=== PATIENT | female | born 1940 | race Caucasian/White ===

== ENCOUNTER 2018-06-09 20:27 | Observation (INO) | payer MEDICARE ==
[2018-06-09 21:07] LABS: #Basophils 0.1 thou/uL (0.0-0.2); #Eosinphils 0.1 thou/uL (0.0-0.7); #Lymphocytes 2.6 thou/uL (1.20-3.40); #Monocytes 1.8 thou/uL (0.11-0.59); #Neutrophils 7.8 thou/uL (1.40-6.50); %Basophils 0.7 % (0.0-1.0); %Eosinophils 1.2 % (0.0-10.0); %Lymphocytes 21.1 % (21.0-51.0); %Monocytes 14.6 % (0.0-10.0); %Neutrophils 62.5 % (42.0-75.0); Hemoglobin 14.4 g/dL (12.0-16.0); Mean Corpuscular HGB CONC 32.4 g/dL (32.0-36.0); Mean Corpuscular Hemoglobin 29.8 pg (27.0-31.0); Mean Platelet Volume 8.8 fL (7.4-10.4); Platelet Count 252 thou/uL (130-400); RBC Distribution Width 12.7 % (11.5-14.5); Red Blood Cell (RBC) Count 4.81 mill/uL (4.20-5.40); White Blood Cell (WBC) Count 12.4 thou/uL (4.8-10.8)
--- NOTE | 2018-06-09 21:11 | RAD ---
PORTABLE CHEST: 06/09/18 HISTORY: Mental status change. Confusion. The lungs are clear. No infiltrate or vascular congestion. Heart size upper normal. IMPRESSION: No acute lung process. POS: [facility]
[2018-06-09 21:27] LABS: ALT (SGPT) 17 U/L (8-55); AST (SGOT) 21 U/L (5-34); Alkaline Phosphatase 81 U/L (40-150); Anion Gap 11 mmol/L (10-20); BUN (Urea Nitrogen) 33 mg/dL (9.8-20.1); Bilirubin, Total 0.3 mg/dL (0.2-1.2); CK (CPK) 51 U/L (29-168); Calc. Creatinine Clearance 0 mL/min (70-130); Calcium 9.6 mg/dL (7.8-10.44); Carbon Dioxide 28 mmol/L (23-31); Chloride 99 mmol/L (98-107); Estimated GFR-MDRD 49; Globulin 3.5 g/dL (2.4-3.5); Glucose 100 mg/dL (83-110); Potassium 4.4 mmol/L (3.5-5.1); Protein, Total 7.5 g/dL (6.0-8.3); Sodium 134 mmol/L (136-145)
[2018-06-09 21:28] LABS: Bilirubin Negative (Negative); Blood, Urine Negative (Negative); Clarity CLEAR (Clear); Glucose, Urine (Dipstick) Negative (Negative); Leukocyte Negative (Negative); Nitrite Negative (Negative); Protein, Urine (Dipstick) Negative (Neg-Trace); Specific Gravity, Urine 1.018 (1.002-1.036); Urobilinogen 0.2 mg/dL (0.2-1.0); pH, Urine 5.5 (5.0-9.0)
[2018-06-09 21:32] LABS: CKMB 1.3 ng/mL (0-6.6)
--- NOTE | 2018-06-09 21:36 | CT ---
CT HEAD WITHOUT CONTRAST: 06/09/18 Multiple axial tomograms obtained through the head without IV enhancement. INDICATIONS: Mental status change. Confusion. Ventricles have normal size and position. Mild chronic ischemic white matter change. No evidence of m ass or hemorrhage. No evidence of acute infarct. IMPRESSION: No evidence of acute process. POS: [facility]
[2018-06-09] MEDS ORDERED: hydrALAZINE 20 MG/ML VIAL ONE (21:56)
[2018-06-10 02:39] VITALS: BMI 25.2
[2018-06-10 03:37] LABS: #Basophils 0.1 thou/uL (0.0-0.2); #Eosinphils 0.1 thou/uL (0.0-0.7); #Lymphocytes 2.5 thou/uL (1.20-3.40); #Monocytes 1.4 thou/uL (0.11-0.59); #Neutrophils 9.4 thou/uL (1.40-6.50); %Basophils 0.5 % (0.0-1.0); %Lymphocytes 18.3 % (21.0-51.0); %Monocytes 10.6 % (0.0-10.0); %Neutrophils 69.6 % (42.0-75.0); Hemoglobin 13.4 g/dL (12.0-16.0); Mean Corpuscular HGB CONC 32.7 g/dL (32.0-36.0); Mean Corpuscular Hemoglobin 30.4 pg (27.0-31.0); Mean Platelet Volume 8.9 fL (7.4-10.4); Platelet Count 252 thou/uL (130-400); RBC Distribution Width 12.6 % (11.5-14.5); Red Blood Cell (RBC) Count 4.42 mill/uL (4.20-5.40); White Blood Cell (WBC) Count 13.6 thou/uL (4.8-10.8)
--- NOTE | 2018-06-10 03:40 | HP ---
CHIEF COMPLAINT: Fall. HISTORY OF PRESENT ILLNESS: The patient is a 78-year-old female with past medical history of hyperte nsion, hypothyroidism. She also has a history of benign positional vertigo or possible vestibular ne uritis. The patient came to the hospital today after a fall. The patient stated that she was in her bedroom where she felt unsteady and fell and hit her head. The patient stated that about a couple m onths ago, she also had a fall; however, at that time, she got little dizzy. The patient states that she normally sees her neurologist, who normally does Allison maneuver and she feels great. The patien t stated that, however, this time her fall was not because she had some vertigo, but because she just felt unsteady. The patient's was at the bedside states that she has not been eating very mu ch and not eating or drinking as much. The patient denies any chest pain, fever or chills. The issac ent states that her blood pressure has been pretty labile for the past few weeks. The patient denies any nausea, vomiting, or diarrhea. PAST MEDICAL HISTORY: As of the following: The patient has a history of systolic murmur. She has a history of aortic stenosis which she is following with her cellophane casting machine repairer who does an echocardiogram e very 6 months. History of hypertension, hypothyroidism. PAST SURGICAL HISTORY: She has had an EGD, hysterectomy, appendectomy, cholecystectomy. ALLERGIES: She is allergic to PENICILLIN. CURRENT MEDICATIONS: The patient does not have a list with her. SOCIAL HISTORY: She denies any smoking, alcohol use, drug use. She lives with her . FAMILY HISTORY: Mother of heart failure and had complication at age 85, father had complication s from alcoholism and at age 60. The patient is a FULL CODE. REVIEW OF SYSTEMS: All negative except for the ones mentioned above in the HPI. PHYSICAL EXAMINATION: VITAL SIGNS: As following, temperature of 97.6, pulse 68, respiratory rate 18, sats 97% room air, bl ood pressure 141/65. GENERAL: She is awake, alert, oriented x3, does not appear in any distress. CARDIOVASCULAR: S1, S2 present. She does have a systolic murmur heard on her right sternal border, left sternal border which also radiates around her carotids. LUNGS: Clear to auscultation. No rhonchi or wheezes noted. ABDOMEN: Soft, nontender. Bowel sounds present x2. EXTREMITIES: No edema. NEUROLOGIC: No focal deficits noted. SKIN: Warm and dry. No lesions noted. LABORATORY RESULTS: As of the following: WBCs of mildly elevated at 12.4, hemoglobin of 14.4, hemat ocrit of 44.3, platelets of 252. Chemistry: Sodium of 134, potassium of 4.4, BUN of 33, creatinine of 1.08. Troponin x1 was negative. Her vitamin B12 level checked recently was greater than 2000. H er TSH was normal. Her urine was negative. She also had a CT head and a chest x-ray, CT head was ne gative. Her chest x-ray did not show any acute abnormalities. ASSESSMENT AND PLAN: The patient is a very pleasant 78-year-old female who presented to the hospital after a fall. 1. Unsteady gait/fall. The patient denies that she passed out. Denies any dizziness or palpitation s prior to her falling. The patient stated that she just lost her balance and fell. The patient may recommend physical therapy as an outpatient. Also, I would recommend getting the echocardiogram santos t was done recently. The echocardiogram that we have since 2016 and she has a pretty significant mur mur. I want to make sure that her falling is not secondary to any cardiac issues; however, I think t his is unlikely since she is not having any syncopal episodes, would like to have an echocardiogram. We will order an echocardiogram from her cellophane casting machine repairer's office. I do not think she needs to repeat an echocardiogram, it was done recently. Her TSH is normal. Her vitamin B12 level is normal. I thi nk the patient has just been very possibly some deconditioning may require physical therapy. She als o may benefit from vestibular physical therapy also. 2. Hypertension. We will continue to monitor. The patient's states that her blood pressure has been very high at times and normal at times. We will continue to monitor. 3. Hypothyroidism. We will continue her medication. 4. Deep venous thrombosis prophylaxis. We will put the patient on SCDs. I did spend some time expl aining to the patient about eating a well-balanced diet. Also, the patient drinks a lot of Diet Coke s. I have encouraged her to drink more water. Also, I have asked her to do some exercising haley g a stationary biking to increase her musculature in her lower extremities to avoid these falls. The patient uses a cane on ambulation. The patient stated that since this year she has fallen only twic e.
[2018-06-10 03:59] LABS: Anion Gap 11 mmol/L (10-20); BUN (Urea Nitrogen) 30 mg/dL (9.8-20.1); Calc. Creatinine Clearance 61 mL/min (70-130); Calcium 9.7 mg/dL (7.8-10.44); Carbon Dioxide 26 mmol/L (23-31); Chloride 104 mmol/L (98-107); Estimated GFR-MDRD 58; Glucose 106 mg/dL (83-110); Potassium 4.4 mmol/L (3.5-5.1); Sodium 137 mmol/L (136-145)
[2018-06-10] MEDS: Aspirin 81 mg Enteric Coated Tablet PO SCH (08:09)
[2018-06-10] MEDS: Levothyroxine Sodium 75 MCG TAB PO SCH (08:09)
[2018-06-10] MEDS: Gabapentin 300 MG CAP PO SCH ×2 (08:09→20:28)
[2018-06-10] MEDS ORDERED: Non-Formulary Item 1 EACH (Omeprazole [Omeprazole] 40 MG) PO SCH (09:00)
[2018-06-10] MEDS ORDERED: Sodium Chloride 0.9% 500 ML IV SCH (09:15)
[2018-06-10] MEDS: Acetaminophen 325 MG TAB PO PRN ×2 (09:21→20:28)
--- NOTE | 2018-06-10 11:55 | MRI ---
MRI BRAIN NONCONTRAST: 06/10/2018 HISTORY: A 78-year-old female with altered mental status and recent falls. FINDINGS: The FLAIR axial sequence and the gradient echo axial sequence are significantly degraded by patient m som. There is mild ventriculomegaly. This has not significantly changed since the 03/29/2017 MRI. There is no restricted diffusion, midline shift or any other mass effect, recent intraaxial hemorrh age, or extraaxial fluid collection. There mild chronic ischemic white matter changes. There are bi lateral mastoid effusions, which were not present on the previous MRI. IMPRESSION: 1. Mild chronic ischemic white matter changes. 2. No acute intracranial findings. 3. Bilateral mastoid effusions. smitha[] POS: [facility]
[2018-06-10] MEDS ORDERED: Ketorolac Tromethamine 30 MG/ML VIAL IVP SCH (13:00)
--- NOTE | 2018-06-10 14:05 | PDOC.PN ---
- Subjective Encounter Start Date: 06/10/18 Encounter Start Time: 08:30 Subjective: f/u for dizziness, fall, aortic stenosis -: Patient denies complaints today, denies dizziness - Objective Resuscitation Status: Resuscitation Status FULL:Full Resuscitation Vital Signs & Weight: Vital Signs (12 hours) Temp Pulse Pulse Pulse Resp BP BP 06/10/18 11:23 97.4 F L 70 18 06/10/18 09:18 79 80 119/55 L 121/54 L 06/10/18 07:37 98 F 70 16 06/10/18 03:10 97.5 F L 69 15 BP Pulse Ox 06/10/18 11:23 138/64 98 06/10/18 09:18 06/10/18 07:37 133/65 99 06/10/18 03:10 158/65 H 96 Weight Weight 77.383 kg I&O: 06/09/18 06/10/18 06/11/18 06:59 06:59 06:59 Intake Total 240 Output Total 400 Balance -160 Result Diagrams: 06/10/18 03:12 06/10/18 03:12 Phys Exam - Physical Examination HEENT: PERRLA, moist MMs Neck: no nodes, no JVD Respiratory: no wheezing, clear to auscultation bilateral Cardiovascular: RRR Significant systolic murmur Gastrointestinal: soft, non-tender Musculoskeletal: no edema, pulses present Neurological: non-focal, normal sensation, moves all 4 limbs Patient has a hard time with remembering recent events Lymphatic: no nodes Psychiatric: normal affect, A&O x 3 Skin: no rash, normal turgor, cap refill <2 seconds Dx/Plan (1) Aortic stenosis, moderate Code(s): I35.0 - NONRHEUMATIC AORTIC (VALVE) STENOSIS Status: Chronic (2) Altered mental state Code(s): R41.82 - ALTERED MENTAL STATUS, UNSPECIFIED Status: Acute (3) Falls Code(s): W19.XXXA - UNSPECIFIED FALL, INITIAL ENCOUNTER Status: Acute Qualifiers: Encounter type: initial encounter Qualified Code(s): W19.XXXA - Unspecified fall, initial encounter - Plan cont current plan of care Requesting last Echo from Dr. Sullivan, due to holiday, will order one if not -: received, pt reports last one may have been a year ago. -: Patient refusing rehab, states she can get around with cane -: Will continue to monitor * .
[2018-06-10] MEDS ORDERED: Sodium Chloride 0.9% 10 ML ONE (19:49)
[2018-06-10] MEDS ORDERED: Simvastatin 40 MG TAB PO SCH (21:00)
[2018-06-10] MEDS ORDERED: PARoxetine 20 MG TAB PO SCH (21:00)
[2018-06-11 03:55] LABS: #Eosinphils 0.2 thou/uL (0.0-0.7); #Lymphocytes 2.9 thou/uL (1.20-3.40); #Monocytes 1.6 thou/uL (0.11-0.59); #Neutrophils 6.4 thou/uL (1.40-6.50); %Basophils 0.2 % (0.0-1.0); %Eosinophils 1.9 % (0.0-10.0); %Lymphocytes 26.6 % (21.0-51.0); %Neutrophils 57.3 % (42.0-75.0); Mean Corpuscular HGB CONC 32.7 g/dL (32.0-36.0); Mean Corpuscular Hemoglobin 30.3 pg (27.0-31.0); Mean Corpuscular Volume 92.7 fL (78.0-98.0); Mean Platelet Volume 8.8 fL (7.4-10.4); Platelet Count 229 thou/uL (130-400); RBC Distribution Width 12.8 % (11.5-14.5); Red Blood Cell (RBC) Count 4.31 mill/uL (4.20-5.40); White Blood Cell (WBC) Count 11.1 thou/uL (4.8-10.8)
[2018-06-11 04:12] LABS: ALT (SGPT) 15 U/L (8-55); AST (SGOT) 17 U/L (5-34); Albumin 3.6 g/dL (3.4-4.8); Alkaline Phosphatase 70 U/L (40-150); Anion Gap 11 mmol/L (10-20); BUN (Urea Nitrogen) 30 mg/dL (9.8-20.1); Bilirubin, Total 0.4 mg/dL (0.2-1.2); Calc. Creatinine Clearance 52 mL/min (70-130); Calcium 9.2 mg/dL (7.8-10.44); Carbon Dioxide 27 mmol/L (23-31); Chloride 103 mmol/L (98-107); Estimated GFR-MDRD 49; Glucose 101 mg/dL (83-110); Protein, Total 6.6 g/dL (6.0-8.3); Sodium 137 mmol/L (136-145)
[2018-06-11] MEDS: Gabapentin 300 MG CAP PO SCH (08:12)
[2018-06-11] MEDS: Aspirin 81 mg Enteric Coated Tablet PO SCH (08:12)
[2018-06-11] MEDS: Levothyroxine Sodium 75 MCG TAB PO SCH (08:12)
[2018-06-11 11:36] VITALS: BP 106/54; TEMP 97.8
--- NOTE | 2018-06-11 15:19 | DIS ---
DATE OF ADMISSION: 06/09/2018 DATE OF DISCHARGE: 06/11/2018 PRIMARY CARE PHYSICIAN: Abiel Granados M.D. CONSULTATIONS: None. CODE STATUS: Full. PROCEDURES: 1. Brain CT, which showed no evidence of acute process. 2. Chest x-ray, which showed no acute lung process. 3. MRI of the brain, which showed mild chronic ischemic white matter changes, no acute intracranial findings, bilateral mastoid effusions. 4. ECHO: with an ejection fraction of 60%-65%, grade I/III diastolic dysfunction, mild concentric left ventricular hypertrophy, mild mitral regurgitation, moderate tricuspid regurgitation, right ventricular pressures at 28 mmHg, small pericardial effusion without tamponade, heavily calcified aortic valve with decreased cusp opening, [id number] aortic regurgitation, moderate aortic valve stenosis with MEGA 1.0 cm sq, max valve 3.2 m/sec and mean gradient of 25 mmHg. DISCHARGE DIAGNOSES: 1. Unsteady gait and fall. CT and MRI of the brain were performed. No new findings to explain possible changes. Echocardiogram was done, showed aortic stenosis. The patient does have a history of vertigo. 2. Hypertension. 3. Hypothyroidism. REVIEW OF SYSTEMS: The patient was examined on the day of discharge. Denies dizziness. Denies chest pain, shortness of breath. Denies any weakness. All other systems were reviewed and are negative. PHYSICAL EXAMINATION: VITAL SIGNS: Temperature 98.2, pulse is 64, respirations are 18, blood pressure 118/58, the patient is 98% on room air. GENERAL: The patient is alert, awake, oriented x3. The patient does not appear in any distress. Looks nontoxic. HEENT: Head is normocephalic, atraumatic. Eyes, pupils are equal and reactive to light. Extraocular muscles are intact. NECK: Normal range of motion. Trachea is midline. No JVD is noted. RESPIRATORY/CHEST: No respiratory distress. Breath sounds are clear. No wheezing or rales. Lungs are clear to auscultation. No rhonchi or wheeze. CARDIOVASCULAR/HEART: S1, S2. Systolic murmur heard at the right sternal border. ABDOMEN: Soft, nontender. Bowel sounds are present. EXTREMITIES: Strength is equal bilaterally, upper extremities and lower extremities. Sensation intact x4. No edema is noted. NEUROLOGIC: No focal sensory deficits are noted. SKIN: Warm, dry and normal in color. HOSPITAL COURSE: This is a very pleasant 78-year-old female with a past medical history of hypertension, hypothyroidism and benign positional vertigo and possible vestibular neuritis. The patient on the day of admission, came to the hospital after she had had a fall. Reports that she was in her bedroom, felt unsteady and hit her head. The patient stated that this same thing happened a couple of months ago. The patient states that she normally sees a neurologist when she starts feeling dizzy and having vertigo symptoms and she has an Allison maneuver and after which she feels back to normal. The patient states that her appetite had decreased and she has not been eating or drinking normally. She does deny any abdominal pain, nausea, vomiting, diarrhea. The patient was admitted to the observation unit. She initially had a little bit of leukocytosis with a white blood cell count of 12.4 that has gone down to 11.3. All other lab values have remained stable. Her urine was negative. The patient denies any complaints. Denies any dizziness or any other symptoms. The patient had an echocardiogram this morning, results are not available on discharge, patient instructed to follow up with Dr. Granados to discuss results at her follow up appointment. She wished to be discharged home for [facility] so patient was discharged home. DISCHARGE MEDICATIONS: Home medications will be continued, which include gabapentin 300 mg p.o. b.i.d., levothyroxine 75 mcg p.o. daily, omeprazole 40 mg p.o. daily, Paxil 20 mg p.o. at bedtime, quinapril 40 mg p.o. daily, simvastatin 40 mg p.o. at bedtime. ALLERGIES: The patient has allergies to PENICILLINS and LACTOSE. DISCHARGE CONDITION: The patient's condition is stable. DISPOSITION: The patient will be discharged to home. DISCHARGE INSTRUCTIONS: The patient was instructed to follow up with Dr. Granados within the next week. ZAK
== END 2018-06-11 15:15 | disposition home or self-care (01) ==
LOC: ERS 20:27 → 2SW 23:51
PROVIDERS: ADMIT Internal Medicine; ATTEND Internal Medicine
DX: R26.81 Unsteadiness on feet (principal); E03.9 Hypothyroidism, unspecified; I35.0 Nonrheumatic aortic (valve) stenosis; H81.10 Benign paroxysmal vertigo, unspecified ear; I10 Essential (primary) hypertension; Z79.899 Other long term (current) drug therapy; Z88.0 Allergy status to penicillin; Z91.011 Allergy to milk products; W19.XXXA Unspecified fall, initial encounter
CPT/HCPCS: 51701; 70450; 70551; 71045; 80048; 80053; 81003; 82550; 82553; 82607; 84484; 85025 ×2; 87040; 87086; 90662; 93005; 93306; 96374; 97116 ×2; 97139 ×4; 99285; G0008; G0378 ×2; G8978; G8979; G8987; G8988; G8989; 36415; 84443; 90471; A4353; J0360; J1885

== ENCOUNTER 2018-06-18 07:28 | Emergency (ER) | payer MEDICARE ==
[2018-06-18] MEDS ORDERED: Ondansetron PF 4 MG/2 ML Vial ONE (08:37)
[2018-06-18 08:50] LABS: #Eosinphils 0.1 thou/uL (0.0-0.7); #Lymphocytes 1.8 thou/uL (1.20-3.40); #Neutrophils 8.2 thou/uL (1.40-6.50); %Basophils 0.3 % (0.0-1.0); %Eosinophils 1.1 % (0.0-10.0); %Lymphocytes 16.4 % (21.0-51.0); %Neutrophils 73.2 % (42.0-75.0); Hemoglobin 14.8 g/dL (12.0-16.0); Mean Corpuscular HGB CONC 33.3 g/dL (32.0-36.0); Mean Corpuscular Hemoglobin 30.5 pg (27.0-31.0); Mean Corpuscular Volume 91.4 fL (78.0-98.0); Mean Platelet Volume 8.5 fL (7.4-10.4); Platelet Count 243 thou/uL (130-400); RBC Distribution Width 12.8 % (11.5-14.5); Red Blood Cell (RBC) Count 4.84 mill/uL (4.20-5.40); White Blood Cell (WBC) Count 11.1 thou/uL (4.8-10.8)
[2018-06-18 09:12] LABS: ALT (SGPT) 23 U/L (8-55); AST (SGOT) 25 U/L (5-34); Albumin 4.1 g/dL (3.4-4.8); Alkaline Phosphatase 84 U/L (40-150); Anion Gap 13 mmol/L (10-20); BUN (Urea Nitrogen) 24 mg/dL (9.8-20.1); Bilirubin, Total 0.4 mg/dL (0.2-1.2); Calc. Creatinine Clearance 0 mL/min (70-130); Calcium 10.1 mg/dL (7.8-10.44); Carbon Dioxide 27 mmol/L (23-31); Chloride 105 mmol/L (98-107); Estimated GFR-MDRD 46; Globulin 3.6 g/dL (2.4-3.5); Glucose 105 mg/dL (83-110); Lipase 10 U/L (8-78); Potassium 4.2 mmol/L (3.5-5.1); Protein, Total 7.7 g/dL (6.0-8.3); Sodium 141 mmol/L (136-145)
[2018-06-18] MEDS ORDERED: Promethazine HCl 25 MG/ML VIAL ONE (09:36)
[2018-06-18 10:27] LABS: Bilirubin Negative (Negative); Blood, Urine Negative (Negative); Clarity CLEAR (Clear); Glucose, Urine (Dipstick) Negative (Negative); Leukocyte Negative (Negative); Nitrite Negative (Negative); Protein, Urine (Dipstick) Trace mg/dL (Neg-Trace); Specific Gravity, Urine 1.012 (1.002-1.036); Urobilinogen 0.2 mg/dL (0.2-1.0); pH, Urine 5.5 (5.0-9.0)
== END 2018-06-18 11:53 | disposition home or self-care (01) ==
LOC: ERS 07:28
DX: R11.2 Nausea with vomiting, unspecified (principal); E03.9 Hypothyroidism, unspecified; I10 Essential (primary) hypertension; Z79.899 Other long term (current) drug therapy
CPT/HCPCS: 36415; 80053; 81003; 83690; 85025; 96361; 96365; 96366; 96375; J2405; J2550

== ENCOUNTER 2019-06-05 10:51 | Emergency (ER) | payer MEDICARE ==
[2019-06-05] MEDS ORDERED: Ondansetron PF 4 MG/2 ML Vial ONE (11:28)
[2019-06-05] MEDS ORDERED: Morphine 4 MG/ML VIAL ONE (11:28)
[2019-06-05 11:29] LABS: #Eosinphils 0.1 thou/uL (0.0-0.7); #Lymphocytes 1.7 thou/uL (1.20-3.40); #Monocytes 0.7 thou/uL (0.11-0.59); #Neutrophils 9.4 thou/uL (1.40-6.50); %Basophils 0.1 % (0.0-1.0); %Eosinophils 0.9 % (0.0-10.0); %Lymphocytes 14.5 % (21.0-51.0); %Monocytes 5.7 % (0.0-10.0); %Neutrophils 78.8 % (42.0-75.0); Hemoglobin 14.3 g/dL (12.0-16.0); Mean Corpuscular Hemoglobin 31.4 pg (27.0-31.0); Mean Corpuscular Volume 92.4 fL (78.0-98.0); Mean Platelet Volume 8.2 fL (7.4-10.4); Platelet Count 237 thou/uL (130-400); RBC Distribution Width 11.9 % (11.5-14.5); Red Blood Cell (RBC) Count 4.54 mill/uL (4.20-5.40); White Blood Cell (WBC) Count 11.9 thou/uL (4.8-10.8)
[2019-06-05 11:50] LABS: ALT (SGPT) 19 U/L (8-55); AST (SGOT) 24 U/L (5-34); Albumin 4.4 g/dL (3.4-4.8); Alkaline Phosphatase 82 U/L (40-110); Anion Gap 14 mmol/L (10-20); BUN (Urea Nitrogen) 24 mg/dL (9.8-20.1); Bilirubin, Total 0.4 mg/dL (0.2-1.2); Calc. Creatinine Clearance 0 mL/min (70-130); Calcium 10.2 mg/dL (7.8-10.44); Carbon Dioxide 24 mmol/L (23-31); Chloride 105 mmol/L (98-107); Estimated GFR-MDRD 52; Globulin 3.2 g/dL (2.4-3.5); Glucose 95 mg/dL (83-110); Lipase 21 U/L (8-78); Potassium 4.1 mmol/L (3.5-5.1); Protein, Total 7.6 g/dL (6.0-8.3); Sodium 139 mmol/L (136-145)
[2019-06-05] MEDS ORDERED: diphenhydrAMINE 50 MG/ML VIAL ONE (12:13)
--- NOTE | 2019-06-05 13:34 | CT ---
EXAM: CT ABDOMEN AND PELVIS HISTORY: Trauma pain, x2 days. Nausea. COMPARISON: 10/04/2015 Procedure: Multiple contiguous axial images were obtained and a CT of the abdomen and pelvis with IV contrast. C oronal reformats were performed. FINDINGS: Lower Chest: within normal limits. Vessels: Normal caliber aorta. Heart: Normal heart size. No significant pericardial fluid Abdomen: Portal vein:Patent Gallbladder: Surgically absent. Postsurgical dilatation of the intra and extra hepatic biliary system , unchanged Liver: within normal limits. Pancreas: within normal limits. Stable prominence of the pancreatic duct. Spleen: Enlarging enhancing focus involving the medial aspect of the spleen, probably measuring 0.9 c m. Previous the measuring 0.5 cm. Adrenals: within normal limits. Kidneys: Symmetric enhancement. No obstructive uropathy. Redemonstration of a 1 cm hypodensity in the midpole of the left kidney which may represent a complex cyst. Peritoneum: No ascites or free air, no fluid collection. Bowel: Grossly unremarkable gastric mucosa. No evidence of bowel obstruction. Ileocecal junction is u nremarkable. Appendix is not appreciated. No inflammation at the cecal apex.. Scattered fecal material in a nondistended, nondilated colon. Mesentery and Retroperitoneum: No enlarged mesenteric or retroperitoneal lymph nodes. Abdominal Wall: within normal limits. Pelvis: Reproductive Organs: Surgically absent uterus Pelvis: No mass, lymphadenopathy, free air or free fluid. Bladder: within normal limits. Bones: No osseous abnormalities. Lumbar fusion at L4-L5. IMPRESSION: 1. No evidence of acute intraabdominal\pelvic abnormality. 2. Hysterectomy. 3. Stable left renal cyst. 4. Stable dilatation of the intra and extrahepatic biliary system and pancreatic duct. 5. Interval enlargement of a nonspecific enhancing focus in the spleen which may represent a splenic hemangioma.
[2019-06-05 14:07] LABS: Bacteria/HPF None Seen HPF (None Seen); Bilirubin Negative (Negative); Blood, Urine Negative (Negative); Clarity Clear (Clear); Glucose, Urine (Dipstick) Normal (Negative); Leukocyte 25 Leu/uL (Negative); Nitrite Negative (Negative); Protein, Urine (Dipstick) Negative (Neg-Trace); RBC/HPF 0-3 HPF (0-3); Squamous Epithelial 0-3 HPF (0-3); Urobilinogen Normal mg/dL (Less than 2); WBC/HPF 0-3 HPF (0-3)
[2019-06-05] MEDS ORDERED: Iopamidol 370 76% 50 ML VIAL FS ONE (16:27)
[2019-06-05] MEDS ORDERED: Iopamidol-370 76% 500 ML 1 ML ONE (16:27)
== END 2019-06-05 14:50 | disposition home or self-care (01) ==
LOC: ERS 10:51
DX: R11.2 Nausea with vomiting, unspecified (principal); R19.7 Diarrhea, unspecified; R10.9 Unspecified abdominal pain; I10 Essential (primary) hypertension; E03.9 Hypothyroidism, unspecified; Z79.899 Other long term (current) drug therapy
CPT/HCPCS: 74177; 80053; 81003; 81015; 82150; 83690; 85025; 96361; 96374; 96375; J1200; J2270; J2405; Q9967

== ENCOUNTER 2019-11-21 13:04 | Inpatient (IN) | payer MEDICARE ==
[2019-11-21 13:44] LABS: #Basophils 0.1 thou/uL (0.0-0.2); #Eosinphils 0.2 thou/uL (0.0-0.7); #Lymphocytes 1.5 thou/uL (1.20-3.40); %Basophils 0.6 % (0.0-1.0); %Lymphocytes 14.2 % (21.0-51.0); %Monocytes 9.6 % (0.0-10.0); %Neutrophils 73.6 % (42.0-75.0); Hemoglobin 12.7 g/dL (12.0-16.0); Mean Corpuscular HGB CONC 34.3 g/dL (32.0-36.0); Mean Corpuscular Hemoglobin 32.2 pg (27.0-31.0); Platelet Count 171 thou/uL (130-400); RBC Distribution Width 11.9 % (11.5-14.5); Red Blood Cell (RBC) Count 3.94 mill/uL (4.20-5.40); White Blood Cell (WBC) Count 10.9 thou/uL (4.8-10.8)
[2019-11-21 14:04] LABS: ALT (SGPT) 29 U/L (8-55); AST (SGOT) 44 U/L (5-34); Albumin 3.8 g/dL (3.4-4.8); Alkaline Phosphatase 79 U/L (40-110); Anion Gap 11 mmol/L (10-20); BUN (Urea Nitrogen) 26 mg/dL (9.8-20.1); Bilirubin, Total 0.5 mg/dL (0.2-1.2); Calc. Creatinine Clearance 0 mL/min (70-130); Calcium 9.2 mg/dL (7.8-10.44); Carbon Dioxide 23 mmol/L (23-31); Chloride 109 mmol/L (98-107); Estimated GFR-MDRD 43; Globulin 2.9 g/dL (2.4-3.5); Glucose 104 mg/dL (83-110); Potassium 4.5 mmol/L (3.5-5.1); Protein, Total 6.7 g/dL (6.0-8.3); Sodium 138 mmol/L (136-145)
--- NOTE | 2019-11-21 14:04 | RAD ---
CHEST ONE VIEW: History: Chest pain Comparison: 2018 FINDINGS: Lungs are clear. Pulmonary arteries are mildly dilated. No acute osseous abnormality. Heart size is n ot significantly enlarged. IMPRESSION: 1. Enlargement of hilum bilaterally suggesting pulmonary hypertension. Lymphadenopathy. 2. No acute inflammatory process in the chest. No evidence for pneumonia. POS: [facility]
[2019-11-21] MEDS ORDERED: Nitroglycerin 2% Ointment 1 INCH/1 GM Packet ONE (14:27)
[2019-11-21 15:31] LABS: CK (CPK) 49 U/L (29-168)
[2019-11-21 15:45] LABS: Lipase 1259 U/L (8-78)
[2019-11-21] MEDS ORDERED: Morphine 4 MG/ML VIAL ONE (15:55)
[2019-11-21] MEDS ORDERED: Sodium Chloride 0.9% 1,000 ML IV SCH (16:30)
[2019-11-21] MEDS ORDERED: Morphine 2 MG/ML SYRINGE SLOW IVP PRN (17:03)
--- NOTE | 2019-11-21 18:10 | HP ---
CHIEF COMPLAINT: Chest and abdominal pain. HISTORY OF PRESENT ILLNESS: A 79-year-old female with history of hypertension, gait impairment, and hypothyroidism, presenting with chest pain as well as abdominal pain. This morning, she started to have chest pain all across the chest and radiating towards her neck. Later, she also experienced epigastric pain. The pain lasted at least few hours until resolved by analgesic given in the ER. Her lipase was elevated at 1259, and D-dimer was negative. The patient had previous episode of pancreatitis when she had milog cruise in March 2019. She is not alcoholic, and she does not smoke. She had an echo done during her last hospitalization, and it showed EF of 65%, and heavily calcified aortic valve with valve stenosis. She is scheduled to go to cardiac cath on December 01 to assess the valvular anatomy as well as to rule out coexisting coronary artery disease, if any. The patient has no prior history of [place] or stroke, and she is not diabetic. REVIEW OF SYSTEMS: 13-point review of systems reviewed with the patient and pertinents addressed in the history of present illness. Rest are negative including no fever or productive cough. She did not have any shortness of breath. No PND or orthopnea. No nausea or vomiting. She does have abdominal pain and mostly restricted in the epigastric area, bandlike sensation. She has no hematuria, hematochezia, or dysuria. Denies headache, tingling, or numbness in her extremities. No rash. ALLERGIES: SHE IS ALLERGIC TO PENICILLIN AND LACTOSE. PAST MEDICAL HISTORY: Hypertension, hypothyroidism, gait impairment, severe aortic stenosis. SOCIAL HISTORY: She lives with her . Does not smoke or drink alcohol. FAMILY HISTORY: Significant for mother had CHF. Father of alcoholic pancreatitis. PHYSICAL EXAMINATION: VITAL SIGNS: Her temperature is 98, pulse 76, blood pressure 127/60, saturating 96% in room air. GENERAL: She is alert, oriented, healthy female, appears younger for her stated age, not toxic looking. HEENT: Pupils are equal, round, and reactive to light. Anicteric. Mucous membranes moist. CARDIOVASCULAR: Regular rate and rhythm without murmurs, rubs, or gallops. She has a 4/6 systolic ejection murmur heard very well in all 4 sites of cardiac auscultation. LUNGS: Clear to auscultation bilaterally without wheezing, rales, or rhonchi. ABDOMEN: There is some mild tenderness both in the right and left as well as the epigastric area in the upper quadrants. No rash noted over the abdominal area. Good bowel sounds and soft. No guarding or rigidity appreciated. EXTREMITIES: Without any pitting edema or rash. NEUROLOGIC: No focal deficits. PSYCHIATRIC: Appropriate mood and affect. LABORATORY DATA: WBC 10.9, hemoglobin 12.7, platelet 171. CMP panel in the normal range including AST of 44, ALT of 29, alkaline phosphatase of 79. Her troponin is 0.021. Lipase was 1259. IMPRESSION AND PLAN: 1. This is a 79-year-old female with history of hypertension and severe aortic stenosis, presenting with acute pancreatitis and likely due to biliary versus idiopathic. The patient has no risk factors like smoking or alcohol. We will check her lipid panel. The patient is on simvastatin, quinapril, paroxetine, and gabapentin as well as levothyroxine. We will hold some of these medications except levothyroxine and paxil. Aggressive hydration. Keep her n.p.o. until lipase is trending down. We will also get a CT abdomen to make sure there is no pancreatic necrosis as well as pseudocyst. 2. Leukocytosis, probably reflective of above condition. 3. Chest pain. Based on the history, it sounds more like pain related to pancreatitis rather than cardiac ischemia. However, we will rule out with serial troponins. 4. Hypertension. I will hold her quinapril for now and provide hydralazine as needed. Currently, she is normotensive. Rest of the management based on further clinical course. Full code. Job ID: [id number] MTDD
[2019-11-21] MEDS: Sodium Chloride 0.9% 1,000 ML IV SCH (20:57)
[2019-11-21 21:07] LABS: Troponin I 0.015 ng/mL (< 0.028)
[2019-11-21] MEDS: predniSONE 50 MG TAB PO SCH (21:08)
[2019-11-22] MEDS: Sodium Chloride 0.9% 1,000 ML IV SCH (03:39)
[2019-11-22] MEDS: predniSONE 50 MG TAB PO SCH ×2 (03:39→07:50)
[2019-11-22 04:53] LABS: #Lymphocytes 1.1 thou/uL (1.20-3.40); #Monocytes 0.1 thou/uL (0.11-0.59); #Neutrophils 5.4 thou/uL (1.40-6.50); %Basophils 0.1 % (0.0-1.0); %Eosinophils 0.1 % (0.0-10.0); %Lymphocytes 16.7 % (21.0-51.0); %Monocytes 2.1 % (0.0-10.0); %Neutrophils 81.1 % (42.0-75.0); Hemoglobin 12.3 g/dL (12.0-16.0); Mean Corpuscular HGB CONC 33.2 g/dL (32.0-36.0); Mean Corpuscular Hemoglobin 31.4 pg (27.0-31.0); Mean Corpuscular Volume 94.4 fL (78.0-98.0); Mean Platelet Volume 9.5 fL (7.4-10.4); Platelet Count 154 thou/uL (130-400); RBC Distribution Width 11.7 % (11.5-14.5); Red Blood Cell (RBC) Count 3.93 mill/uL (4.20-5.40); White Blood Cell (WBC) Count 6.7 thou/uL (4.8-10.8)
[2019-11-22 05:26] LABS: ALT (SGPT) 205 U/L (8-55); AST (SGOT) 299 U/L (5-34); Albumin 3.7 g/dL (3.4-4.8); Alkaline Phosphatase 171 U/L (40-110); Anion Gap 11 mmol/L (10-20); BUN (Urea Nitrogen) 26 mg/dL (9.8-20.1); Bilirubin, Total 0.7 mg/dL (0.2-1.2); Calc. Creatinine Clearance 55 mL/min (70-130); Calcium 8.9 mg/dL (7.8-10.44); Carbon Dioxide 23 mmol/L (23-31); Cardiac Risk 2.8 (Less than 4.5); Chloride 109 mmol/L (98-107); Cholesterol 109 mg/dl (< 200 Desired); Estimated GFR-MDRD 49; Globulin 2.9 g/dL (2.4-3.5); Glucose 135 mg/dL (83-110); HDL Cholesterol 39 mg/dL (>60 Neg Risk); LDL Cholesterol, Calculated 56 mg/dL; Potassium 4.5 mmol/L (3.5-5.1); Protein, Total 6.6 g/dL (6.0-8.3); Sodium 138 mmol/L (136-145); Triglycerides 71 mg/dL (Less than 150)
[2019-11-22] MEDS: Levothyroxine Sodium 75 MCG TAB PO SCH (05:29)
[2019-11-22 05:39] LABS: Lipase 4253 U/L (8-78)
[2019-11-22] MEDS ORDERED: diphenhydrAMINE 50 MG CAP PO SCH (09:00)
[2019-11-22] MEDS ORDERED: Iopamidol-370 76% 500 ML 1 ML ONE (09:03)
[2019-11-22] MEDS ORDERED: Sodium Chloride 0.9% 1,000 ML IV SCH (10:00)
--- NOTE | 2019-11-22 11:56 | CT ---
CT ABDOMEN ONLY WITHOUT AND WITH CONTRAST: Date: 11/22/2019 COMPARISON: 06/05/2019. HISTORY: Epigastric pain and pancreatitis. Evaluate for pseudocyst. TECHNIQUE: Multiple contiguous axial images were obtained in a CT of the abdomen only without and with IV contra st. Postcontrast images were obtained in the arterial and portal venous phases. PO contrast was admin istered. Sagittal and coronal reformats were performed. FINDINGS: The gallbladder has been removed. There is enlargement of the common bile duct to 10.0 mm with mild c entral intrahepatic biliary dilatation. This is stable compared to the prior examination and may be a reservoir effect from prior cholecystectomy. There is subtle stranding change adjacent to the pancreatic tail with a small amount of fluid between the pancreas and spleen. This could be secondary to pancreatitis. There is no evidence of pancreatic necrosis and no focal pancreatic lesions are identified. There is a small hypodensity in the left kidney which likely represents a cyst. No focal liver lesions are seen. The right kidney, adrenal glands, and spleen are unremarkable. No free air is seen in the abdomen. The visualized large and small bowel are unremarkable. No abdomin al adenopathy is seen. Atherosclerotic calcifications are seen in the aorta. Degenerative and postsurgical changes are seen in the spine. Atelectasis is seen in both lung bases. IMPRESSION: 1. Focal pancreatitis of the tail of the pancreas. 2. Enlargement of the biliary tree is likely a reservoir effect from prior cholecystectomy. 3. small left renal cyst. POS: [facility]
--- NOTE | 2019-11-22 13:21 | PDOC.HOSPP ---
- Subjective Encounter Date: 11/22/19 Encounter Time: 10:10 Subjective: pt still has some pain, no nausea, no appetite. Ct abd done. - Objective Vital Signs & Weight: Vital Signs (12 hours) Temp Pulse Resp BP Pulse Ox 11/22/19 11:39 97.6 F 66 17 145/63 H 92 L 11/22/19 07:11 97.5 F L 61 17 140/63 95 11/22/19 04:22 97.4 F L 62 18 152/70 H 96 Weight Weight 181 lb 11.2 oz I&O: 11/21/19 11/22/19 11/23/19 06:59 06:59 06:59 Intake Total 100 Output Total 100 Balance 0 Result Diagrams: 11/22/19 04:26 11/22/19 04:26 Hospitalist ROS - Medication Medications: Active Medications Generic Name Dose Route Start Last Admin Trade Name Freq PRN Reason Stop Dose Admin Sodium Chloride 1,000 mls @ 150 mls/hr 11/22/19 10:00 11/22/19 13:13 Normal Saline 0.9% IV 11/22/19 23:19 1,000 mls .[id number] SHAWANDA Administration Levothyroxine Sodium 75 mcg 11/22/19 06:00 11/22/19 05:29 Synthroid PO 75 mcg 0600 SHAWANDA Administration - Exam General Appearance: NAD, awake alert Eye: PERRL ENT: normocephalic atraumatic Neck: supple Heart: RRR, normal peripheral pulses Respiratory: CTAB, normal chest expansion Gastrointestinal: soft, non-distended, normal bowel sounds, tender to palpation Neurological: no focal deficits Hosp A/P - Plan Acute pancreatitis, idiopathic vs.. ACEI induced --CW IVF, antiemetic and analgesic -Ct abd - no pseudocyst or necrosis -- tail of the pancreas w.. inflammation -TGL - in 70s -on hold ACEI, zocor, gabapetin and paxil etc.. -CW NPO Aortic stenosis --plan for cath middle of this month Leukocytosis -resolved HTN -hold aCEI and hydralazine PRN. full code.
[2019-11-22] MEDS ORDERED: Lactated Ringer's 1,000 ML IV SCH (15:00)
[2019-11-22] MEDS: Lactated Ringer's 1,000 ML IV SCH ×2 (16:05→20:46)
[2019-11-22] MEDS ORDERED: Lorazepam 1 MG TAB PO SCH (16:15)
[2019-11-22] MEDS ORDERED: Communication Order-Pharmacy FS SCH (18:00)
[2019-11-22] MEDS: PARoxetine 20 MG TAB PO SCH (20:45)
--- NOTE | 2019-11-22 22:04 | CON ---
DATE OF CONSULTATION: 11/22/2019 REASON FOR CONSULT: Pancreatitis. HISTORY OF PRESENT ILLNESS: Ms. Moyer is a pleasant 79-year-old female, who came to the emergency room with back and chest pain. She states it awoke her at about 2 or 3 in the morning on the day of admission, which was yesterday. Apparently, she stayed at home trying to see if they would get better, it was bothering her in her jaws bilaterally and her chest and her upper back. Also, when she came in, she had stable vital signs and she ruled out for myocardial infarction, but she was found to have pancreatitis. She reports that associated with this she had elevated LFTs in a cholestatic pattern. Today, after she received steroids for iodine allergy, she had a CAT scan at about 10 this morning that showed a large amount of the common bile duct to 10 mm mild central intrahepatic biliary duct dilatation and some subtle stranding in the pancreatic tail area consistent with pancreatitis. There was no evidence of pancreatic necrosis or focal pancreatic lesions. In talking with the patient, she is feeling much better now. She received IV fluids. She is urinating well. She denies any jaundice. She reports a similar illness to this back in March and May when she was in [place] visiting her son apparently. Our office has received those records. Dr. Nam saw her after that admission and requested records. She was to follow up after that again, but did not. The records we did receive indicated she had an endoscopic ultrasound in [place] and that although it showed some prominent bile duct, they did not see any stones or sludge in the bile duct and the pancreas appeared normal. They did not see any ampullary lesions and they felt that she should consider having ERCP and sphincterotomy when she return home or possibly if she had recurrent episodes. Since that time or before, the patient is really unclear and I have made multiple phone calls with her and not been able to get through to him, but apparently she was also in the hospital in [facility] at one point in time, I think it was after the [place] hospitalization, but I can't be sure, it seems it was also for her stone, but she does not recall much being done other than getting IV fluids and a CT scan. The patient denies alcohol use. Denies any prior episodes of pancreatitis like this before these hospitalizations previously. REVIEW OF SYSTEMS: Negative for fever, chills, nausea, or vomiting, although the previous episode she was quite nauseated. She notes that she is supposed to have some heart testing. 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 Gene Sullivan, and it turns out that she has severe aortic stenosis. She is to have a catheterization on 12/01 and have a transarterial valve replacement at some point in time. She has an aortic valve area of 0.8. She does have some dyspnea on exertion and shortness of breath. No orthopnea and no syncopal episodes. ALLERGIES: PENICILLIN, LACTOSE AND CONTRAST DYE. PAST MEDICAL HISTORY: Hypertension, hypothyroidism, severe aortic stenosis, PAST SURGICAL HISTORY: Cholecystectomy. SOCIAL HISTORY: The patient does not smoke or drink. FAMILY HISTORY: Mother notes congestive heart failure and father of pancreatitis related to alcohol abuse. MEDICATIONS: At home; 1. B12. 2. Myrbetriq. 3. Quinapril. 4. Paxil. 5. Synthroid. 6. Gabapentin. 7. Simvastatin. Medications here; 1. Tylenol. 2. Aspirin. 3. Synthroid. 4. Morphine p.r.n. 5. Zofran p.r.n. 6. Paroxetine. 7. Normal saline at 150 an hour. PHYSICAL EXAMINATION: VITAL SIGNS: She has been afebrile since admission. Temperature is 97.6, pulse 66, O2 saturation 92% on room air, blood pressure 145/63, respirations 17. GENERAL: She is resting in bed. She is in no distress. HEENT: Oropharynx is moist. NECK: Supple. LUNGS: Clear. HEART: Regular rate and rhythm. There is a 3/6 systolic ejection murmur that radiates up into her right neck and left neck. LUNGS: Clear. ABDOMEN: Soft. She has mild tenderness in the epigastrium. No rebound or guarding. EXTREMITIES: No clubbing, cyanosis, or edema. SKIN: Without rash or lesions. There are no ecchymoses. LABORATORY DATA: Sodium 138, potassium 4.5, chloride 109, BUN and creatinine are 26 and 1.09, down from 26 and 1.22 yesterday. AST was 44, today is 299, ALT was 29, today is 205, alkaline phosphatase 79, presently 171. Troponins were negative, last was 0.021 at 2200 last night. Protein 6.7, albumin 3.7, lipase is 4253 today, it was 1259 yesterday. ASSESSMENT: 1. 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 The patient has had a previous EUS with no overt choledocholithiasis, although this was in [place] and their recommendations were to consider an outpatient endoscopic retrograde cholangiopancreatography, although she was admitted with pancreatitis at that time. She may have had a second event in [place]. All those records are not available. This is her at least third event. Presently, she actually feels better than when she came in, but her numbers are up from when she came in. Her renal function has slightly improved. Her hemoglobin has dropped a little bit from 12.7 to 12.3. I think she needs more aggressive fluid resuscitation and we will give her a L bolus and then go back to 150 an hour on saline with the plans for proceeding with endoscopic retrograde cholangiopancreatography tomorrow as long as we were not seeing worsening liver function. 2. Severe aortic stenosis. I talked to Dr. Sullivan. She has a valve area of 0.8, she was supposed to have a heart catheterization on the . It seems that she does not have a coronary anatomy defined at this time, I think she is probably just going to need to have an endoscopic retrograde cholangiopancreatography and be at increased risk, but we will have Cardiology see the patient first as this is not emergent at this time. I think though the patient is going to need that procedure done before she goes home so that she does not come back for pancreatitis again. Job ID: [id number]
--- NOTE | 2019-11-23 00:46 | CON ---
DATE OF CONSULTATION: 11/22/2019 INDICATION FOR CONSULTATION: A 79-year-old female with third bout of pancreatitis who needs to undergo a repeat ERCP, but also has a history of severe aortic valve stenosis and has been complaining of chest pain. HISTORY OF PRESENT ILLNESS: This very pleasant 79-year-old female with a history of severe aortic valve stenosis. She has had a third episode of pancreatitis. The first episode started back in March 2019 and she was hospitalized in [place] for about 10 days. She then had a trip back in June to [place], [place], and again had pancreatitis and required 3 days of hospitalization and then yesterday started noticing more pain and came to the emergency room and was admitted to the hospital. She presented again after having chest pain. Her original lipase was 1259 and increased up to 4253. She did not have any previous history of coronary artery disease. She underwent a stress test about 3 weeks ago with nuclear stress test and did not have any evidence of ischemia. However, the valve area was felt to be by echocardiogram at 0.82 cm. She was scheduled to undergo a cardiac catheterization for evaluation of the valve as well as coronary arteries in anticipation of possible TAVR, but this time she is now presented to the hospital here and needs to undergo a repeat ERCP with possibly dilatation of the ducts. She was told that she had some sludge in the duct previously, she has already had a cholecystectomy in the past. At this time, she still has some abdominal soreness, but the pain has improved. She had significant pain prior to being admitted to the hospital. The concerning factor is that she also had complained of some chest discomfort radiating to the jaw area associated with this abdominal pain. She has been complaining of more shortness of breath and dyspnea on exertion recently and that was one of the reason for the repeat echocardiogram as well as the stress test. At this time, we did discuss with Dr. Gene Sullivan. I did have discussion with him already about proceeding with this lady and most likely will need to proceed with at least a diagnostic cardiac catheterization to ensure that she does not have severe coronary artery disease prior to proceeding with ERCP unless she becomes an emergent situation with the pancreas with the elevation of the lipase, but at this time she appears to be relatively stable and has had only mild discomfort in the abdominal area. PAST MEDICAL HISTORY: Significant for cholecystectomy, hypothyroidism, hypertension. She has severe aortic valve stenosis as noted above. She has had some inner ear problems. REVIEW OF SYSTEMS: The 12-point review of systems is unremarkable except what is noted in the history of present illness with the chest pressure and dyspnea on exertion. She is actually able to do some water aerobics and does not have too much shortness of breath while doing this procedure and has not had any chest pain either doing her water aerobics. She has had no significant problems as far as problems. Musculoskeletal, she has had some weakness in her legs, but she has been doing some exercises and doing water aerobics without problems. She has had no seizures or syncope. She did have a fall in the past several years ago, which was due to inner ear and then she fell and she says she thinks she lost consciousness when she hit her head. Remainder of the 12-point review of systems is unremarkable except what is noted in the history of present illness. ALLERGIES: SHE IS ALLERGIC TO LACTOSE AND PENICILLIN. PAST MEDICAL HISTORY: Noted for the hypertension, cholecystectomy, hypothyroidism, gait impairment, severe aortic valve stenosis, inner ear problems. SOCIAL HISTORY: There is no history of alcohol or tobacco abuse. She continues to live with her . She has children, who are alive and well. FAMILY HISTORY: Positive for congestive heart failure. Her father did have also pancreatitis. This is felt to be due to alcoholic pancreatitis and apparently he succumbed to this. MEDICATIONS: Prior to admission included Paxil tablets she takes 20 mg at bedtime, Synthroid 75 mcg daily, simvastatin 40 mg at bedtime, quinapril is 40 mg at bedtime, gabapentin 300 mg at bedtime, Myrbetriq 25 mg at bedtime, and also she takes vitamin B12 subcu injections. PHYSICAL EXAMINATION: GENERAL: Reveals a very pleasant, well-developed, well-nourished female, who is in no acute distress at this time. VITAL SIGNS: Blood pressure was elevated at 161/72, heart rate was 62 and regular shows a sinus rhythm. She is afebrile. Respiratory rate about 18. HEENT: Shows the head to be normocephalic and atraumatic. Carotid pulses are present. She has a loud noise in the neck, which is not felt to be a bruit but most likely is from the aortic valve stenosis with radiation to the neck. CHEST: Clear to auscultation without rales, rhonchi, or wheezing. CARDIOVASCULAR: There is a harsh systolic murmur heard over the entire precordium compatible with aortic valve stenosis. There were no heaves or thrills otherwise noted. CHEST: Clear to auscultation. ABDOMEN: Shows some tenderness in the epigastric area and she does have positive bowel sounds. I did not palpate any masses. EXTREMITIES: Show no clubbing or cyanosis. Pedal pulses are present. NEUROLOGIC: She appears to be fully intact. There were no gross focal motor deficits noted. SKIN: Warm and dry. PSYCHIATRIC: She has a normal mood and affect. LABORATORY DATA: Shows a WBC of 6.7, hemoglobin 12.3, platelet count of 154,000. Potassium was 4.5, BUN was 26 with creatinine 1.09. Blood sugar was 135. Her lipase is noted above. Her LDL was 56. DIAGNOSTIC STUDIES: EKG shows a normal sinus rhythm with evidence of left ventricular hypertrophy as well as some nonspecific ST-segment changes in I, aVL, V5, and V6, which could be due to the left ventricular hypertrophy or due to ischemia. IMPRESSION: 1. A 79-year-old female with severe aortic valve stenosis and possible underlying coronary artery disease. She did have a stress test about 3 weeks ago, did not show any evidence of underlying ischemia, but she continues to have severe aortic valve stenosis and has had an episode of chest pain with radiation to the jaw, which is very suspicious for underlying coronary artery disease. I would suggest that this patient undergo at least a diagnostic cardiac catheterization prior to proceeding with any significant interventions otherwise. 2. Acute pancreatitis. This is the third episode of pancreatitis for this lady. She underwent ERCP in [place] back in March and was also told at that time that she had sludge in the duct and may need to undergo. At this time, she may need to undergo a repeat ERCP and possible dilatation of the duct. 3. Hypertension. The blood pressure is elevated at this time, but she has been having some pain and this may elevate the blood pressure. Earlier today, the blood pressure was 145/63. 4. Hypothyroidism, this remains stable at this time, this will be dealt by the primary care service. I did have discussion with her complex manager, Dr. Gene Sullivan and we have agreed that probably the best scenario would be to proceed with a cardiac catheterization as a definitive tool to rule out evidence of severe underlying coronary artery disease with the episodes of chest discomfort, radiation to the jaw and multiple risk factors for coronary artery disease. We will plan for this tomorrow unless she has an acute worsening of her pancreatitis in which case this may supersede the cardiac catheterization. She may need to have dilatation of the bile ducts . She is at least moderate to severe risk due to the aortic valve stenosis and possible underlying coronary disease. I have explained the risks to her to include bleeding, infection, possible myocardial infarction, cerebrovascular accident, renal insufficiency, allergic contrast reaction, even the possibility of . She understands and we will plan for cardiac catheterization tomorrow unless other issues arrives in the interim. Job ID: [id number]
[2019-11-23 04:53] LABS: #Lymphocytes 1.5 thou/uL (1.20-3.40); #Monocytes 1.2 thou/uL (0.11-0.59); #Neutrophils 9.1 thou/uL (1.40-6.50); %Basophils 0.4 % (0.0-1.0); %Eosinophils 0.2 % (0.0-10.0); %Monocytes 9.9 % (0.0-10.0); %Neutrophils 76.6 % (42.0-75.0); Hemoglobin 11.4 g/dL (12.0-16.0); Mean Corpuscular HGB CONC 33.6 g/dL (32.0-36.0); Mean Corpuscular Hemoglobin 31.6 pg (27.0-31.0); Mean Platelet Volume 9.8 fL (7.4-10.4); Platelet Count 135 thou/uL (130-400); RBC Distribution Width 11.8 % (11.5-14.5); White Blood Cell (WBC) Count 11.9 thou/uL (4.8-10.8)
[2019-11-23 05:15] LABS: ALT (SGPT) 108 U/L (8-55); AST (SGOT) 91 U/L (5-34); Albumin 3.4 g/dL (3.4-4.8); Alkaline Phosphatase 115 U/L (40-110); Anion Gap 12 mmol/L (10-20); BUN (Urea Nitrogen) 22 mg/dL (9.8-20.1); Bilirubin, Total 0.4 mg/dL (0.2-1.2); Calc. Creatinine Clearance 68 mL/min (70-130); Calcium 9.1 mg/dL (7.8-10.44); Carbon Dioxide 21 mmol/L (23-31); Chloride 111 mmol/L (98-107); Estimated GFR-MDRD 61; Globulin 2.4 g/dL (2.4-3.5); Glucose 97 mg/dL (83-110); Lipase 113 U/L (8-78); Potassium 3.6 mmol/L (3.5-5.1); Protein, Total 5.8 g/dL (6.0-8.3); Sodium 140 mmol/L (136-145)
[2019-11-23] MEDS: Lactated Ringer's 1,000 ML IV SCH ×2 (06:05→14:41)
[2019-11-23] MEDS: Levothyroxine Sodium 75 MCG TAB PO SCH (06:05)
[2019-11-23] MEDS ORDERED: Midazolam HCl 2 mg/2 ml Vial ONE (07:10)
[2019-11-23] MEDS ORDERED: diphenhydrAMINE 50 MG/ML VIAL IM SCH (07:15)
--- NOTE | 2019-11-23 08:45 | PDOC.CPN ---
- Subjective Date: 11/23/19 Time: 08:00 - Review of Systems General: reports: fever/chills Respiratory: reports: shortness of breath Cardiovascular: reports: chest pain, edema Gastrointestinal: reports: nausea, vomiting Musculoskeletal: reports: pain - Objective Allergies/Adverse Reactions: Allergies Allergy/AdvReac Type Severity Reaction Status Date / Time Iodinated Contrast Media Allergy Rash Verified 11/22/19 03:36 Penicillins Allergy Verified 10/11/19 07:08 lactose AdvReac Verified 10/11/19 07:08 Visit Medications: Current Medications Acetaminophen (Tylenol) 650 mg PO Q4H PRN PRN Reason: Headache/Fever/Mild Pain (1-3) Diphenhydramine HCl (Benadryl) 50 mg IM 0715 [facility] Stop: 11/23/19 09:15 Last Admin: 11/23/19 06:45 Dose: 50 mg Hydralazine HCl (Apresoline) 10 mg SLOW IVP Q4H PRN PRN Reason: Blood Pressure Lactated Ringer's (Lactated Ringer's) 1,000 mls @ 150 mls/hr IV .Q6H40M [facility] Last Admin: 11/23/19 06:05 Dose: 1,000 mls Levothyroxine Sodium (Synthroid) 75 mcg PO 0600 [facility] Last Admin: 11/23/19 06:05 Dose: 75 mcg Miscellaneous Information (Communication Order-Pharmacy) 0 each FS ONE [facility] Stop: 11/23/19 18:01 Morphine Sulfate (Morphine) 2 mg SLOW IVP Q6H PRN PRN Reason: Chest Pain Ondansetron HCl (Zofran) 4 mg IVP Q6H PRN PRN Reason: Nausea/Vomiting Pantoprazole Sodium (Protonix) 40 mg IVP DAILY [facility] Paroxetine HCl (Paxil) 20 mg PO HS [facility] Last Admin: 11/22/19 20:45 Dose: 20 mg Sodium Chloride (Flush - Normal Saline) 10 ml IVF PRN PRN PRN Reason: Saline Flush Vital Signs & Weight: Vital Signs Temp Pulse Resp BP Pulse Ox 11/23/19 03:48 98.6 F 63 18 148/63 H 93 L Admit Weight 179 lb Weight 181 lb 11.2 oz - Physical Exam General: alert & oriented x3 HEENT: normocephaly Neck: no JVD/HJR Cardiac: regular rate and rhythm, systolic murmur Lungs: clear to auscultation Neuro: grossly intact Abdomen: soft, tender - Labs Result Diagrams: 11/23/19 04:24 11/23/19 04:24 Troponin/CKMB Troponin I 0.021 ng/mL (< 0.028) 11/21/19 22:21 - Telemetry Sinus rhythms and dysrhythmias: sinus rhythm - Assessment/Plan Assessment/Plan: 1. Acute pancreatitis: LFT's,lipase decreased. No c/o of significant pain. Plan for ERCP. 2. Aortic stenosis. Severe. By cath this AM the MEGA is 0.73 cm 2. Plan for TAVR. Normal cors. EF > 75% 3. Chest pain: non cardiac. Okay to proceed with ERCP. Will plan for TAVR per Dr. 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
[2019-11-23] MEDS ORDERED: Sodium Chloride 0.9% 200 ML IV PRN (08:46)
[2019-11-23] MEDS: Acetaminophen 325 MG TAB PO PRN (09:08)
[2019-11-23] MEDS: Pantoprazole 40 MG VIAL IVP SCH (09:08)
[2019-11-23] MEDS ORDERED: Iopamidol 370 76% 100 ML VIAL ONE (09:19)
--- NOTE | 2019-11-23 09:57 | PRG ---
DATE OF SERVICE: 11/23/2019 SUBJECTIVE: Ms. Moyer went for a cardiac catheterization this morning by report, the coronary arteries are clear, though she does have severe aortic stenosis. Cardiology has cleared her for ERCP. The patient is reporting significant improvement in abdominal discomfort, now minimal, with no nausea or vomiting, requesting to be advanced to clear liquid diet. OBJECTIVE: VITAL SIGNS: Temperature 98.1, pulse 73, blood pressure 162/72, and 95% oxygen saturation on room air. GENERAL: No acute distress. HEART: Regular rate and rhythm. LUNGS: Clear to auscultation bilaterally. ABDOMEN: Bowel sounds are hypoactive, but present. Soft and nontender to palpation. EXTREMITIES: No peripheral edema. LABORATORY STUDIES: WBC 11.9, hemoglobin 11.4, and platelets 135. Sodium 140, potassium 3.6, BUN 22, creatinine down to 0.89, total bilirubin 0.4, alkaline phosphatase down to 115, AST down to 91, ALT down to 108. Lipase is down to 113, yesterday it was 4253. ASSESSMENT AND PLAN: 1. Biliary pancreatitis, recurrent, clinically improved today. Notes the significant reduction in lipase and LFTs as well as the symptomatic improvement. We will go ahead and advance her to clear liquid diet today, but stick with the plan for endoscopic retrograde cholangiopancreatography tomorrow. Please have the patient n.p.o. after midnight. 2. Elevated LFTs, suspicion is secondary to biliary sludge versus ampullary stenosis, planning for endoscopic retrograde cholangiopancreatography tomorrow. LFTs are downtrending today. She remains afebrile. 3. Aortic stenosis. The patient is being followed by Cardiology. Transcatheter aortic valve replacement is being planned at some point in the near future, but with otherwise negative coronary angiogram today. She is cleared for endoscopic retrograde cholangio-pancreatography tomorrow. Job ID: [id number]
--- NOTE | 2019-11-23 11:58 | PDOC.HOSPP ---
- Subjective Encounter Date: 11/23/19 Encounter Time: 10:00 Subjective: plan for ERCP, so will not start CLD this PM, keep NPO. - Objective Vital Signs & Weight: Vital Signs (12 hours) Temp Pulse Resp BP Pulse Ox 11/23/19 11:39 97.9 F 66 16 153/65 H 93 L 11/23/19 08:30 98.1 F 73 17 162/72 H 95 11/23/19 03:48 98.6 F 63 18 148/63 H 93 L Weight Admit Weight 179 lb Weight 181 lb 11.2 oz I&O: 11/22/19 11/23/19 11/24/19 06:59 06:59 06:59 Intake Total 100 3780 Output Total 100 1400 Balance 0 2380 Result Diagrams: 11/23/19 04:24 11/23/19 04:24 Hospitalist ROS - Medication Medications: Active Medications Generic Name Dose Route Start Last Admin Trade Name Freq PRN Reason Stop Dose Admin Acetaminophen 650 mg 11/21/19 16:20 11/23/19 09:08 Tylenol PO 650 mg Q4H PRN Administration Headache/Fever/Mild Pain (1-3) Lactated Ringer's 1,000 mls @ 150 mls/hr 11/22/19 14:45 11/23/19 06:05 Lactated Ringer's IV 1,000 mls .Q6H40M SHAWANDA Administration Levothyroxine Sodium 75 mcg 11/22/19 06:00 11/23/19 06:05 Synthroid PO 75 mcg 0600 SHAWANDA Administration Pantoprazole Sodium 40 mg 11/23/19 09:00 11/23/19 09:08 Protonix IVP 40 mg DAILY SHAWANDA Administration Paroxetine HCl 20 mg 11/22/19 21:00 11/22/19 20:45 Paxil PO 20 mg HS SHAWANDA Administration - Exam General Appearance: NAD, awake alert Eye: PERRL ENT: normocephalic atraumatic Neck: supple Heart: RRR Respiratory: CTAB Gastrointestinal: soft, normal bowel sounds Neurological: no focal deficits Hosp A/P - Plan Acute pancreatitis Biliary pancreatitis --CW IVF, antiemetic and analgesic -Ct abd - no pseudocyst or necrosis -- tail of the pancreas w.. inflammation -TGL - in 70s -on hold ACEI, zocor, gabapetin and paxil etc.. -CW NPO -plan for ERCP in am. Aortic stenosis --s/p cath -plan for TAVR Leukocytosis -resolved HTN -hold aCEI and hydralazine PRN. full code.
[2019-11-23] MEDS: hydrALAZINE 20 MG/ML VIAL SLOW IVP PRN (21:46)
[2019-11-23] MEDS: PARoxetine 20 MG TAB PO SCH (21:47)
[2019-11-23] MEDS: Lorazepam 2 MG/ML VIAL SLOW IVP PRN (21:49)
[2019-11-24] MEDS: Lactated Ringer's 1,000 ML IV SCH ×4 (00:05→21:00)
[2019-11-24] MEDS: hydrALAZINE 20 MG/ML VIAL SLOW IVP PRN (05:17)
[2019-11-24] MEDS: Levothyroxine Sodium 75 MCG TAB PO SCH (05:17)
[2019-11-24] MEDS: Ondansetron PF 4 MG/2 ML Vial IVP PRN (08:04)
[2019-11-24] MEDS ORDERED: Levofloxacin 500 mg/D5W 100 ml Premix Bag ONE (09:17)
[2019-11-24] MEDS ORDERED: Ondansetron PF 4 MG/2 ML Vial ONE (09:29)
[2019-11-24] MEDS ORDERED: Lidocaine 1% PF 5 ML VIAL ONE (09:29)
[2019-11-24] MEDS ORDERED: PHENYLEPHRINE-NS 100 MCG/ML 10 ML SYRINGE ONE (09:29)
[2019-11-24] MEDS ORDERED: Rocuronium Bromide 10 MG/ML (10ML VIAL) ONE (09:29)
[2019-11-24] MEDS ORDERED: Indomethacin 50 MG SUPP ONE (09:52)
[2019-11-24] MEDS ORDERED: Iothalamate Meglumine 60% 30 ML VIAL FS ONE (09:52)
[2019-11-24] MEDS ORDERED: Fentanyl 100 MCG/2 ML VIAL ONE (10:43)
[2019-11-24] MEDS ORDERED: SUGAMMADEX SODIUM 200 MG/2 ML VIAL ONE (10:43)
[2019-11-24] MEDS ORDERED: Ketamine 50 MG/ML (10ML VIAL) ONE (10:48)
[2019-11-24] MEDS ORDERED: Midazolam HCl 2 mg/2 ml Vial ONE (10:49)
[2019-11-24] MEDS ORDERED: Phenylephrine 10 MG/ML VIAL ONE ×2 (10:51)
--- NOTE | 2019-11-24 12:05 | RAD ---
Exam: Intraprocedure fluoroscopy for ERCP HISTORY: Pancreatitis FINDINGS: 2 fluoroscopic images demonstrate retrograde opacification of the intrahepatic and extra he patic biliary system. There does appear to be reflux of contrast into the pancreatic duct. Dilatation of the intrahepatic and extrahepatic biliary system may be due to reservoir effect from pr evious cholecystectomy. IMPRESSION: Intraprocedure fluoroscopy as above
[2019-11-24] MEDS ORDERED: Meperidine HCl/PF 25 MG/ML VIAL SLOW IVP PRN (12:21)
[2019-11-24] MEDS ORDERED: Promethazine HCl 25 MG/ML VIAL SLOW IVP PRN (12:21)
[2019-11-24] MEDS ORDERED: Ondansetron HCl/PF 4 MG/2 ML Vial IVP PRN (12:21)
[2019-11-24] MEDS ORDERED: HYDROmorphone 2 MG/ML VIAL SLOW IVP PRN (12:21)
[2019-11-24] MEDS ORDERED: Promethazine HCl 25 MG/ML VIAL IM PRN (12:21)
[2019-11-24] MEDS: Lisinopril 20 MG TAB PO SCH ×2 (13:38→21:00)
[2019-11-24] MEDS: Pantoprazole 40 MG VIAL IVP SCH (14:11)
[2019-11-24 14:36] LABS: #Lymphocytes 1.3 thou/uL (1.20-3.40); #Monocytes 1.3 thou/uL (0.11-0.59); %Basophils 0.1 % (0.0-1.0); %Eosinophils 0.4 % (0.0-10.0); %Lymphocytes 11.3 % (21.0-51.0); %Monocytes 11.2 % (0.0-10.0); Hemoglobin 11.5 g/dL (12.0-16.0); Mean Corpuscular HGB CONC 32.5 g/dL (32.0-36.0); Mean Corpuscular Volume 95.2 fL (78.0-98.0); Platelet Count 120 thou/uL (130-400); Red Blood Cell (RBC) Count 3.71 mill/uL (4.20-5.40); White Blood Cell (WBC) Count 11.7 thou/uL (4.8-10.8)
[2019-11-24 14:51] LABS: Anion Gap 12 mmol/L (10-20); BUN (Urea Nitrogen) 12 mg/dL (9.8-20.1); Calc. Creatinine Clearance 68 mL/min (70-130); Calcium 8.3 mg/dL (7.8-10.44); Carbon Dioxide 23 mmol/L (23-31); Chloride 107 mmol/L (98-107); Estimated GFR-MDRD 61; Glucose 155 mg/dL (83-110); Magnesium 1.5 mg/dL (1.6-2.6); Potassium 3.3 mmol/L (3.5-5.1); Sodium 139 mmol/L (136-145)
--- NOTE | 2019-11-24 16:25 | PDOC.HOSPP ---
- Subjective Encounter Date: 11/24/19 Encounter Time: 04:10 Subjective: pt returned from the ERCP procedure. does not state any acute c/o. - Objective Vital Signs & Weight: Vital Signs (12 hours) Temp Pulse Resp BP BP Pulse Ox 11/24/19 15:21 97.6 F 66 14 166/73 H 96 11/24/19 13:00 98.1 F 71 14 134/63 100 11/24/19 07:14 98.2 F 91 18 157/70 H 93 L 11/24/19 05:17 84 182/73 H Weight Admit Weight 179 lb Weight 181 lb 11.2 oz I&O: 11/23/19 11/24/19 11/25/19 06:59 06:59 06:59 Intake Total 3780 3380 Output Total 1400 2700 Balance 2380 680 Result Diagrams: 11/24/19 14:16 11/24/19 14:16 Hospitalist ROS - Medication Medications: Active Medications Generic Name Dose Route Start Last Admin Trade Name Freq PRN Reason Stop Dose Admin Acetaminophen 650 mg 11/21/19 16:20 11/23/19 09:08 Tylenol PO 650 mg Q4H PRN Administration Headache/Fever/Mild Pain (1-3) Hydralazine HCl 10 mg 11/22/19 13:19 11/24/19 05:17 Apresoline SLOW IVP 10 mg Q4H PRN Administration Blood Pressure Lactated Ringer's 1,000 mls @ 150 mls/hr 11/22/19 14:45 11/24/19 14:12 Lactated Ringer's IV 1,000 mls .Q6H40M SHAWANDA Administration Levothyroxine Sodium 75 mcg 11/22/19 06:00 11/24/19 05:17 Synthroid PO 75 mcg 0600 SHAWANDA Administration Lisinopril 20 mg 11/24/19 09:00 11/24/19 13:38 Zestril PO Not Given BID SHAWANDA Lorazepam 0.5 mg 11/23/19 09:38 11/23/19 21:49 Ativan SLOW IVP 0.5 mg Q8H PRN Administration Anxiety Ondansetron HCl 4 mg 11/22/19 13:16 11/24/19 08:04 Zofran IVP 4 mg Q6H PRN Administration Nausea/Vomiting Pantoprazole Sodium 40 mg 11/23/19 09:00 11/24/19 14:11 Protonix IVP 40 mg DAILY SHAWANDA Administration Paroxetine HCl 20 mg 11/22/19 21:00 11/23/19 21:47 Paxil PO 20 mg HS SHAWANDA Administration - Exam General Appearance: NAD, awake alert Eye: PERRL ENT: normocephalic atraumatic Neck: supple Heart: RRR, normal peripheral pulses Respiratory: CTAB, normal chest expansion Gastrointestinal: soft, non-tender, non-distended, normal bowel sounds, no guarding Neurological: no focal deficits Hosp A/P - Plan Acute pancreatitis Biliary pancreatitis --CW IVF, antiemetic and analgesic -Ct abd - no pseudocyst or necrosis -- tail of the pancreas w.. inflammation -TGL - in 70s -on hold ACEI, zocor, gabapetin and paxil etc.. -CW NPO -s/p ERCP on 6th -" Intra and extrahepatic dilation d/t reservoir effect from prior cholecystectomy" Aortic stenosis --s/p cath -plan for TAVR Leukocytosis -resolved HTN -hold aCEI and hydralazine PRN. start CLears full code.
[2019-11-24] MEDS: PARoxetine 20 MG TAB PO SCH (21:00)
[2019-11-24] MEDS: Lorazepam 2 MG/ML VIAL SLOW IVP PRN (23:04)
[2019-11-25] MEDS: Lactated Ringer's 1,000 ML IV SCH ×2 (04:23→10:40)
[2019-11-25 04:50] LABS: #Basophils 0.1 thou/uL (0.0-0.2); #Eosinphils 0.2 thou/uL (0.0-0.7); #Lymphocytes 1.1 thou/uL (1.20-3.40); #Monocytes 1.2 thou/uL (0.11-0.59); #Neutrophils 8.3 thou/uL (1.40-6.50); %Basophils 0.7 % (0.0-1.0); %Eosinophils 2.2 % (0.0-10.0); %Lymphocytes 9.9 % (21.0-51.0); %Monocytes 10.7 % (0.0-10.0); %Neutrophils 76.5 % (42.0-75.0); Hemoglobin 11.5 g/dL (12.0-16.0); Mean Corpuscular HGB CONC 33.1 g/dL (32.0-36.0); Mean Corpuscular Hemoglobin 31.6 pg (27.0-31.0); Mean Corpuscular Volume 95.6 fL (78.0-98.0); Mean Platelet Volume 9.9 fL (7.4-10.4); Platelet Count 129 thou/uL (130-400); Red Blood Cell (RBC) Count 3.65 mill/uL (4.20-5.40); White Blood Cell (WBC) Count 10.8 thou/uL (4.8-10.8)
[2019-11-25 05:16] LABS: ALT (SGPT) 47 U/L (8-55); AST (SGOT) 29 U/L (5-34); Albumin 2.8 g/dL (3.4-4.8); Alkaline Phosphatase 82 U/L (40-110); Bilirubin, Direct 0.4 mg/dL (0.1-0.3); Bilirubin, Total 0.8 mg/dL (0.2-1.2); Protein, Total 5.1 g/dL (6.0-8.3)
[2019-11-25] MEDS: Levothyroxine Sodium 75 MCG TAB PO SCH (05:26)
[2019-11-25] MEDS: Lisinopril 20 MG TAB PO SCH (08:28)
[2019-11-25] MEDS: Pantoprazole 40 MG VIAL IVP SCH (08:28)
--- NOTE | 2019-11-25 09:04 | OP ---
DATE OF PROCEDURE: 11/24/2019 PROCEDURE PERFORMED: Endoscopic retrograde cholangiopancreatography with sphincterotomy. PREMEDICATION: Given by Anesthesiology Department. PREPROCEDURE DIAGNOSIS: Recurrent pancreatitis, biliary in nature, associated with elevation of liver profile. POSTPROCEDURE DIAGNOSIS: 1. Very plump ampulla. 2. Normal cholangiogram without filling defect. 3. Status post sphincterotomy. DESCRIPTION OF PROCEDURE: Written consents were obtained prior to procedure. After adequate sedation, the side-viewing endoscope was advanced down the stomach through the pylorus into duodenum. The ampulla appears to be very floppy and plump. Cannulation was performed. Using a 0.035 guidewire, cannulation was very difficult. The pancreatic duct was visualized once with contrast and appeared normal. Selective cannulation of common duct was successful with contrast injection not showing any filling defect. The caliber of the duct measured approximately 8 mm. A generous sphincterotomy was performed at 12 o'clock with good hemostasis. The papillotome was removed. A 12 mm balloon was then used to sweep the duct three times without any extraction of debris or stone or sludge. Occlusive cholangiogram was then performed and was normal. The balloon was removed. There was prompt excretion of contrast. The instrument was then fully removed. The patient tolerated the procedure well without any immediate complication. ASSESSMENT: 1. Very prominent and floppy ampulla but otherwise normal. Status post generous sphincterotomy. 2. Normal cholangiogram. 3. 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 DICTATION ENDS HERE Job ID: [id number]
--- NOTE | 2019-11-25 09:55 | PDOC.CPN ---
- Subjective Date: 11/25/19 Time: 10:06 Interval history: The pt seen and examined. No overnight events. No cardiac complaints - Objective Allergies/Adverse Reactions: Allergies Allergy/AdvReac Type Severity Reaction Status Date / Time Iodinated Contrast Media Allergy Rash Verified 11/22/19 03:36 Penicillins Allergy Verified 10/11/19 07:08 lactose AdvReac Verified 10/11/19 07:08 Visit Medications: Current Medications Acetaminophen (Tylenol) 650 mg PO Q4H PRN PRN Reason: Headache/Fever/Mild Pain (1-3) Last Admin: 11/23/19 09:08 Dose: 650 mg Acetaminophen/Codeine Phosphate (Tylenol #3) 1 tab PO Q4H PRN PRN Reason: Mild Pain (1-3) Acetaminophen/Codeine Phosphate (Tylenol #3) 2 tab PO Q4H PRN PRN Reason: Moderate Pain (4-6) Hydralazine HCl (Apresoline) 10 mg SLOW IVP Q4H PRN PRN Reason: Blood Pressure Last Admin: 11/24/19 05:17 Dose: 10 mg Lactated Ringer's (Lactated Ringer's) 1,000 mls @ 150 mls/hr IV .Q6H40M [facility] Last Admin: 11/25/19 04:23 Dose: 1,000 mls Levothyroxine Sodium (Synthroid) 75 mcg PO 0600 [facility] Last Admin: 11/25/19 05:26 Dose: 75 mcg Lisinopril (Zestril) 20 mg PO BID [facility] Last Admin: 11/25/19 08:28 Dose: 20 mg Lorazepam (Ativan) 0.5 mg SLOW IVP Q8H PRN PRN Reason: Anxiety Last Admin: 11/24/19 23:04 Dose: 0.5 mg Morphine Sulfate (Morphine) 2 mg SLOW IVP Q6H PRN PRN Reason: Chest Pain Nitroglycerin (Nitrostat) 0.4 mg SL Q5MIN PRN PRN Reason: Chest Pain Ondansetron HCl (Zofran) 4 mg IVP Q6H PRN PRN Reason: Nausea/Vomiting Last Admin: 11/24/19 08:04 Dose: 4 mg Pantoprazole Sodium (Protonix) 40 mg IVP DAILY [facility] Last Admin: 11/25/19 08:28 Dose: 40 mg Paroxetine HCl (Paxil) 20 mg PO HS [facility] Last Admin: 11/24/19 21:00 Dose: 20 mg Sodium Chloride (Flush - Normal Saline) 10 ml IVF PRN PRN PRN Reason: Saline Flush Vital Signs & Weight: Vital Signs Temp Pulse Resp BP Pulse Ox 11/25/19 08:20 97.7 F 79 18 131/60 91 L 11/25/19 03:28 18 95 11/25/19 03:04 97.5 F L 87 18 134/61 88 L Admit Weight 179 lb Weight 181 lb 11.2 oz - Physical Exam General: alert & oriented x3 HEENT: mucus membranes moist Neck: supple neck Cardiac: S1/S2 Lungs: clear to auscultation Extremities: no edema - Labs Result Diagrams: 11/26/19 04:01 11/26/19 04:01 Troponin/CKMB Troponin I 0.021 ng/mL (< 0.028) 11/21/19 22:21 - Telemetry Sinus rhythms and dysrhythmias: sinus rhythm - Assessment/Plan Assessment/Plan: 1. Acute pancreatitis with s/p ERCP with sphincterotomy on 11/24/2019 - : LFT's, lipase decreased. No c/o of significant pain. Plan for ERCP. 2. severe Aortic stenosis with MEGA 0.73 cm 2 - Plan for TAVR. Normal cors. EF > 75% 3. Chest pain: non cardiac. 4. HTN 5. Hypothyroidism MAR reviewed * Cath on 11/23/2019 with mild plaque in Lt main, LAD, and RCA; severe with MEGA 0.73cm2; EF > 75% * Will plan for TAVR per Dr. Sullivan her primary wide area network systems administrator. Pt. seen and eval. by me. I agree with the A/P by the [employer]IL[employer] FOREMAN. Pt . has more abd. pain. Followed by GI. Home when stable . F/U with Dr. Sullivan for TAVR. Cardiac status stable from a coronary standpoint.
[2019-11-25] MEDS: Acetaminophen/Codeine 30-300mg Tablet PO PRN ×3 (10:10→23:15)
[2019-11-25] MEDS: NS 0.9% w/ 20 MEQ KCL 1,000 ML/1,000 ML BAG IV SCH ×2 (10:40→19:53)
--- NOTE | 2019-11-25 12:06 | PDOC.HOSPP ---
- Subjective Encounter Date: 11/25/19 Encounter Time: 09:40 Subjective: pt has sig pain and gas in the abdominal area. lipase up - expected w.. ERCP yday. on CLD - Objective Vital Signs & Weight: Vital Signs (12 hours) Temp Pulse Resp BP Pulse Ox 11/25/19 11:05 97.4 F L 80 18 125/61 95 11/25/19 08:20 97.7 F 79 18 131/60 91 L 11/25/19 03:28 18 95 11/25/19 03:04 97.5 F L 87 18 134/61 88 L Weight Admit Weight 179 lb Weight 181 lb 11.2 oz I&O: 11/24/19 11/25/19 11/26/19 06:59 06:59 06:59 Intake Total 3380 2980 Output Total 2700 250 Balance 680 2730 Result Diagrams: 11/25/19 04:01 11/24/19 14:16 Hospitalist ROS - Medication Medications: Active Medications Generic Name Dose Route Start Last Admin Trade Name Freq PRN Reason Stop Dose Admin Acetaminophen 650 mg 11/21/19 16:20 11/23/19 09:08 Tylenol PO 650 mg Q4H PRN Administration Headache/Fever/Mild Pain (1-3) Acetaminophen/Codeine Phosphate 1 tab 11/23/19 08:46 11/25/19 10:10 Tylenol #3 PO 1 tab Q4H PRN Administration Mild Pain (1-3) Hydralazine HCl 10 mg 11/22/19 13:19 11/24/19 05:17 Apresoline SLOW IVP 10 mg Q4H PRN Administration Blood Pressure Lactated Ringer's 1,000 mls @ 150 mls/hr 11/22/19 14:45 11/25/19 10:40 Lactated Ringer's IV 1,000 mls .Q6H40M [facility] Administration Potassium Chloride/Sodium Chloride 1,000 ml in 1,000 mls @ 125 mls/hr 10:00 11/25/19 10:40 Ns 0.9% W/ 20 Meq Kcl IV 11/26/19 01:59 1,000 mls .Q8H [facility] Administration Levothyroxine Sodium 75 mcg 11/22/19 06:00 11/25/19 05:26 Synthroid PO 75 mcg 0600 [facility] Administration Lorazepam 0.5 mg 11/23/19 09:38 11/24/19 23:04 Ativan SLOW IVP 0.5 mg Q8H PRN Administration Anxiety Ondansetron HCl 4 mg 11/22/19 13:16 11/24/19 08:04 Zofran IVP 4 mg Q6H PRN Administration Nausea/Vomiting Pantoprazole Sodium 40 mg 11/23/19 09:00 11/25/19 08:28 Protonix IVP 40 mg DAILY [facility] Administration Paroxetine HCl 20 mg 11/22/19 21:00 11/24/19 21:00 Paxil PO 20 mg HS [facility] Administration - Exam General Appearance: NAD, awake alert Eye: PERRL ENT: normocephalic atraumatic Neck: supple Heart: RRR Respiratory: CTAB, normal chest expansion Gastrointestinal: soft, normal bowel sounds Neurological: no focal deficits Psychiatric: normal affect Hosp A/P - Plan Acute pancreatitis Biliary pancreatitis --CW IVF, antiemetic and analgesic -Ct abd - no pseudocyst or necrosis -- tail of the pancreas w.. inflammation -TGL - in 70s -on hold ACEI, zocor, gabapetin and paxil etc.. -s/p ERCP with sphinterectomy on 6th -" Intra and extrahepatic dilation d/t reservoir effect from prior cholecystectomy" -on CLD Aortic stenosis CAD --s/p cath showing Normal cors. EF > 75% severe Aortic stenosis with MEGA 0.73 cm -plan for TAVR during this hospitalization Leukocytosis -resolved HTN -hold aCEI and hydralazine PRN. start CLears full code.
--- NOTE | 2019-11-25 15:31 | PRG ---
DATE OF SERVICE: 11/25/2019 SUBJECTIVE: Ms. Moyer states her stomach hurts just as bad as it did. Her lipase this morning was elevated. She seems to have post ERCP pancreatitis. She denies fever chills. Her pain is controlled. She is not eating or drinking. OBJECTIVE: VITAL SIGNS: Temperature 97, pulse 80, blood pressure 125/61. ABDOMEN: Mildly tender in the epigastrium without rebound or guarding. LABORATORY DATA: Sodium 139, potassium 3.3, BUN and creatinine are 12 and 0.89, this is stable from yesterday. Bilirubin is 0.4, AST is 29, ALT is 47, alkaline phosphatase is 82. These are all [place] the 11/[place] [address], this is up on 11/23. White count is 10.8, down from 11.7 yesterday. Hemoglobin is 11.5, was 11.5 yesterday, and platelet count is 129. ASSESSMENT: Post endoscopic retrograde cholangiopancreatography pancreatitis. RECOMMENDATIONS: Bolus 1 L of lactated Ringer's as soon as her present bag of normal saline with potassium is through. I have asked the nurse to increase that to 250 an hour as well. Then we will go with the 250 an hour of another bag of IV fluid and then down to 150 an hour. We will repeat labs in the morning. Job ID: [id number]
[2019-11-25] MEDS ORDERED: Lactated Ringer's 1,000 ML IV SCH (16:00)
[2019-11-25] MEDS: PARoxetine 20 MG TAB PO SCH (21:12)
[2019-11-25] MEDS: Lorazepam 2 MG/ML VIAL SLOW IVP PRN (21:12)
[2019-11-26] MEDS ORDERED: Lactated Ringer's 1,000 ML IV SCH (02:00)
[2019-11-26] MEDS ORDERED: NS 0.9% w/ 20 MEQ KCL 1,000 ML/1,000 ML BAG IV SCH ×2 (03:00→06:00)
[2019-11-26] MEDS: Acetaminophen/Codeine 30-300mg Tablet PO PRN ×4 (03:05→23:05)
[2019-11-26 04:37] LABS: #Eosinphils 0.2 thou/uL (0.0-0.7); #Lymphocytes 1.3 thou/uL (1.20-3.40); #Monocytes 1.5 thou/uL (0.11-0.59); #Neutrophils 11.7 thou/uL (1.40-6.50); %Eosinophils 1.6 % (0.0-10.0); %Lymphocytes 8.5 % (21.0-51.0); %Monocytes 10.4 % (0.0-10.0); %Neutrophils 79.5 % (42.0-75.0); Hemoglobin 10.9 g/dL (12.0-16.0); Mean Corpuscular HGB CONC 32.4 g/dL (32.0-36.0); Mean Corpuscular Hemoglobin 31.1 pg (27.0-31.0); Mean Platelet Volume 10.1 fL (7.4-10.4); Platelet Count 124 thou/uL (130-400); RBC Distribution Width 12.1 % (11.5-14.5); Red Blood Cell (RBC) Count 3.52 mill/uL (4.20-5.40); White Blood Cell (WBC) Count 14.7 thou/uL (4.8-10.8)
[2019-11-26 04:52] LABS: ALT (SGPT) 36 U/L (8-55); AST (SGOT) 24 U/L (5-34); Albumin 2.9 g/dL (3.4-4.8); Alkaline Phosphatase 81 U/L (40-110); Anion Gap 12 mmol/L (10-20); BUN (Urea Nitrogen) 10 mg/dL (9.8-20.1); Bilirubin, Total 0.6 mg/dL (0.2-1.2); Calc. Creatinine Clearance 70 mL/min (70-130); Calcium 7.7 mg/dL (7.8-10.44); Carbon Dioxide 24 mmol/L (23-31); Chloride 108 mmol/L (98-107); Estimated GFR-MDRD 64; Globulin 2.5 g/dL (2.4-3.5); Glucose 85 mg/dL (83-110); Potassium 3.8 mmol/L (3.5-5.1); Protein, Total 5.4 g/dL (6.0-8.3); Sodium 140 mmol/L (136-145)
[2019-11-26 05:05] LABS: Lipase 5270 U/L (8-78)
[2019-11-26] MEDS: Levothyroxine Sodium 75 MCG TAB PO SCH (05:52)
[2019-11-26] MEDS: Pantoprazole 40 MG VIAL IVP SCH (09:10)
--- NOTE | 2019-11-26 09:40 | PDOC.CPN ---
- Subjective Date: 11/26/19 Time: 08:30 Interval history: The pt seen and examined. No overnight events. No cardiac complaints. - Objective Allergies/Adverse Reactions: Allergies Allergy/AdvReac Type Severity Reaction Status Date / Time Iodinated Contrast Media Allergy Rash Verified 11/22/19 03:36 Penicillins Allergy Verified 10/11/19 07:08 lactose AdvReac Verified 10/11/19 07:08 Visit Medications: Current Medications Acetaminophen (Tylenol) 650 mg PO Q4H PRN PRN Reason: Headache/Fever/Mild Pain (1-3) Last Admin: 11/23/19 09:08 Dose: 650 mg Acetaminophen/Codeine Phosphate (Tylenol #3) 1 tab PO Q4H PRN PRN Reason: Mild Pain (1-3) Last Admin: 11/25/19 23:15 Dose: 1 tab Acetaminophen/Codeine Phosphate (Tylenol #3) 2 tab PO Q4H PRN PRN Reason: Moderate Pain (4-6) Last Admin: 11/26/19 03:05 Dose: 2 tab Hydralazine HCl (Apresoline) 10 mg SLOW IVP Q4H PRN PRN Reason: Blood Pressure Last Admin: 11/24/19 05:17 Dose: 10 mg Lactated Ringer's (Lactated Ringer's) 1,000 mls @ 150 mls/hr IV .Q6H40M [facility] Potassium Chloride/Sodium Chloride (Ns 0.9% W/ 20 Meq Kcl) 1,000 ml in 1,000 mls @ 250 mls/hr IV .Q4H [facility] Stop: 11/26/19 09:59 Last Admin: 11/26/19 05:53 Dose: 1,000 mls Levothyroxine Sodium (Synthroid) 75 mcg PO 0600 [facility] Last Admin: 11/26/19 05:52 Dose: 75 mcg Lorazepam (Ativan) 0.5 mg SLOW IVP Q8H PRN PRN Reason: Anxiety Last Admin: 11/25/19 21:12 Dose: 0.5 mg Morphine Sulfate (Morphine) 2 mg SLOW IVP Q6H PRN PRN Reason: Chest Pain Nitroglycerin (Nitrostat) 0.4 mg SL Q5MIN PRN PRN Reason: Chest Pain Ondansetron HCl (Zofran) 4 mg IVP Q6H PRN PRN Reason: Nausea/Vomiting Last Admin: 11/24/19 08:04 Dose: 4 mg Pantoprazole Sodium (Protonix) 40 mg IVP DAILY [facility] Last Admin: 11/26/19 09:10 Dose: 40 mg Paroxetine HCl (Paxil) 20 mg PO HS [facility] Last Admin: 11/25/19 21:12 Dose: 20 mg Sodium Chloride (Flush - Normal Saline) 10 ml IVF PRN PRN PRN Reason: Saline Flush Vital Signs & Weight: Vital Signs Temp Pulse Resp BP Pulse Ox 11/26/19 03:52 98.8 F 102 H 18 139/69 92 L Admit Weight 179 lb Weight 181 lb 11.2 oz - Physical Exam HEENT: mucus membranes moist Neck: supple neck Cardiac: S1/S2 Lungs: clear to auscultation - Labs Result Diagrams: 11/26/19 04:01 11/26/19 04:01 Troponin/CKMB Troponin I 0.021 ng/mL (< 0.028) 11/21/19 22:21 - Telemetry Sinus rhythms and dysrhythmias: sinus rhythm - Assessment/Plan Assessment/Plan: 1. Acute pancreatitis with s/p ERCP with sphincterotomy on 11/24/2019 - : LFT's and lipase decreased. No c/o of significant pain. 2. severe Aortic stenosis with MEGA 0.73 cm 2 - Plan for TAVR. Normal cors. EF > 75% 3. Chest pain: non cardiac. 4. HTN 5. Hypothyroidism MAR reviewed * Cath on 11/23/2019 with mild plaque in Lt main, LAD, and RCA; severe with MEGA 0.73cm2; EF > 75% * Will plan for TAVR per Dr. Sullivan her primary bereavement program coordinator. Pt. seen and ecval. by me. I agree with the A/P by the TOP LIFT TRIMMER. The cardiac status uis stable. She has severe but is asymtomatic unless physical exertion. She will f/u with Dr. Sullivan and arrangements will be made for a TAVR in [place]. I will sign off. If any new cardiology issues please page again. Thank you.
--- NOTE | 2019-11-26 11:35 | PDOC.HOSPP ---
- Subjective Encounter Date: 11/26/19 Encounter Time: 09:10 Subjective: doing well, feels week, lipase trending down. pt not nauseated. will start clears this PM? - Objective Vital Signs & Weight: Vital Signs (12 hours) Temp Pulse Resp BP Pulse Ox 11/26/19 03:52 98.8 F 102 H 18 139/69 92 L Weight Admit Weight 179 lb Weight 181 lb 11.2 oz I&O: 11/25/19 11/26/19 11/27/19 06:59 06:59 06:59 Intake Total 2980 2050 Output Total 250 650 Balance 2730 1400 Result Diagrams: 11/26/19 04:01 11/26/19 04:01 Hospitalist ROS - Medication Medications: Active Medications Generic Name Dose Route Start Last Admin Trade Name Freq PRN Reason Stop Dose Admin Acetaminophen 650 mg 11/21/19 16:20 11/23/19 09:08 Tylenol PO 650 mg Q4H PRN Administration Headache/Fever/Mild Pain (1-3) Acetaminophen/Codeine Phosphate 1 tab 11/23/19 08:46 11/25/19 23:15 Tylenol #3 PO 1 tab Q4H PRN Administration Mild Pain (1-3) Acetaminophen/Codeine Phosphate 2 tab 11/23/19 08:46 11/26/19 10:17 Tylenol #3 PO 2 tab Q4H PRN Administration Moderate Pain (4-6) Hydralazine HCl 10 mg 11/22/19 13:19 11/24/19 05:17 Apresoline SLOW IVP 10 mg Q4H PRN Administration Blood Pressure Levothyroxine Sodium 75 mcg 11/22/19 06:00 11/26/19 05:52 Synthroid PO 75 mcg 0600 [facility] Administration Lorazepam 0.5 mg 11/23/19 09:38 11/25/19 21:12 Ativan SLOW IVP 0.5 mg Q8H PRN Administration Anxiety Ondansetron HCl 4 mg 11/22/19 13:16 11/24/19 08:04 Zofran IVP 4 mg Q6H PRN Administration Nausea/Vomiting Paroxetine HCl 20 mg 11/22/19 21:00 11/25/19 21:12 Paxil PO 20 mg HS [facility] Administration - Exam General Appearance: NAD, awake alert Eye: PERRL ENT: normocephalic atraumatic Neck: supple Heart: RRR Respiratory: CTAB, normal chest expansion Gastrointestinal: soft, normal bowel sounds Neurological: no focal deficits Psychiatric: normal affect, A&O x 3 Hosp A/P - Plan Acute pancreatitis Biliary pancreatitis --CW IVF, antiemetic and analgesic -Ct abd - no pseudocyst or necrosis -- tail of the pancreas w.. inflammation -TGL - in 70s -on hold ACEI, zocor, gabapetin.. -s/p ERCP with sphinterectomy on 6th -" Intra and extrahepatic dilation d/t reservoir effect from prior cholecystectomy" -aggressive hydration -as lipase trending down, will tr CLD this evening. Aortic stenosis CAD --s/p cath showing Normal cors. EF > 75% severe Aortic stenosis with MEGA 0.73 cm -plan for TAVR during this hospitalization Leukocytosis -resolved HTN -hold aCEI and hydralazine PRN. start CLears full code.
[2019-11-26] MEDS: Lactated Ringer's 1,000 ML IV SCH ×2 (14:07→21:31)
[2019-11-26] MEDS: PARoxetine 20 MG TAB PO SCH (20:45)
--- NOTE | 2019-11-26 21:54 | PRG ---
DATE OF SERVICE: SUBJECTIVE: Ms. Moyer still has epigastric pain. Her lipase was a little bit lower this morning. She said she tried some clear liquids this afternoon and had worse pain. She states it hurts worse than yesterday. She has had no fever or chills. She is voiding well. MEDICATIONS: 1. She has been using p.r.n. Tylenol, Tylenol No. 3. 2. LR at 150 an hour. 3. Synthroid. 4. Morphine p.r.n. for pain. 5. Nitroglycerin. 6. Protonix. PHYSICAL EXAMINATION: VITAL SIGNS: Pulse is down to 88, temperature 98.1, T-max 98.9, respirations 16, O2 saturation 96%, blood pressure 116/73. LUNGS: Clear. HEART: Regular rate and rhythm without clicks, rubs or murmurs. ABDOMEN: Soft, mildly tender without rebound or guarding. LABORATORY DATA: White count 14.7, hemoglobin 10.9, platelet count 124. Sodium 140, potassium 3.8, BUN and creatinine are 10 and 0.86. Liver function tests normal. Now bilirubin down to normal. Lipase 5270, down from 12,336. 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 Status post successful endoscopic retrograde cholangiopancreatography with post endoscopic retrograde cholangiopancreatography pancreatitis, improving. Renal function is stable. Hemoglobin drop consistent with adequate resuscitation. Vital signs are stable. RECOMMENDATIONS: Continue aggressive IV fluid resuscitation. Continue n.p.o. status. I talked with the nurse and asked to keep her n.p.o. until I order otherwise. Job ID: [id number]
[2019-11-27] MEDS: Lactated Ringer's 1,000 ML IV SCH ×4 (03:22→11:52)
[2019-11-27] MEDS: hydrALAZINE 20 MG/ML VIAL SLOW IVP PRN (03:46)
[2019-11-27 04:19] LABS: #Eosinphils 0.4 thou/uL (0.0-0.7); #Lymphocytes 1.9 thou/uL (1.20-3.40); #Monocytes 1.7 thou/uL (0.11-0.59); #Neutrophils 13.6 thou/uL (1.40-6.50); %Basophils 0.3 % (0.0-1.0); %Eosinophils 2.5 % (0.0-10.0); %Lymphocytes 10.7 % (21.0-51.0); %Monocytes 9.7 % (0.0-10.0); %Neutrophils 76.9 % (42.0-75.0); Hemoglobin 11.2 g/dL (12.0-16.0); Mean Corpuscular HGB CONC 32.5 g/dL (32.0-36.0); Mean Corpuscular Hemoglobin 31.1 pg (27.0-31.0); Mean Corpuscular Volume 95.9 fL (78.0-98.0); Mean Platelet Volume 9.6 fL (7.4-10.4); Platelet Count 167 thou/uL (130-400); RBC Distribution Width 12.1 % (11.5-14.5); Red Blood Cell (RBC) Count 3.61 mill/uL (4.20-5.40); White Blood Cell (WBC) Count 17.7 thou/uL (4.8-10.8)
[2019-11-27 04:43] LABS: ALT (SGPT) 32 U/L (8-55); AST (SGOT) 21 U/L (5-34); Albumin 3.1 g/dL (3.4-4.8); Alkaline Phosphatase 86 U/L (40-110); Anion Gap 13 mmol/L (10-20); BUN (Urea Nitrogen) 11 mg/dL (9.8-20.1); Bilirubin, Total 0.5 mg/dL (0.2-1.2); Calc. Creatinine Clearance 76 mL/min (70-130); Calcium 8.1 mg/dL (7.8-10.44); Carbon Dioxide 21 mmol/L (23-31); Chloride 110 mmol/L (98-107); Estimated GFR-MDRD 70; Globulin 2.8 g/dL (2.4-3.5); Glucose 88 mg/dL (83-110); Potassium 3.7 mmol/L (3.5-5.1); Protein, Total 5.9 g/dL (6.0-8.3); Sodium 140 mmol/L (136-145)
[2019-11-27 04:56] LABS: Lipase 1182 U/L (8-78)
[2019-11-27] MEDS ORDERED: Labetalol HCl 100 MG/20 ML VIAL SLOW IVP SCH (05:45)
[2019-11-27] MEDS: Levothyroxine Sodium 75 MCG TAB PO SCH (05:53)
[2019-11-27 07:23] LABS: Troponin I 0.261 ng/mL (< 0.028)
[2019-11-27 09:13] LABS: Troponin I 0.228 ng/mL (< 0.028)
--- NOTE | 2019-11-27 12:04 | PRG ---
DATE OF SERVICE: 11/27/2019 SUBJECTIVE: Ms. Moyer'dilshad pain is better. She states that her blood pressure went high when she gets up from a chair. The nurse notes her pressure is a little high as well. She is voiding well. She is not throwing up. She feels much better when she came in. Denies fever. OBJECTIVE: VITAL SIGNS: Temperature 97.9, pulse 80, blood pressure 163/66, in's and out's 4096 and 750. HEENT: Oropharynx is moist. NECK: Supple. LUNGS: Clear. HEART: Regular rhythm. ABDOMEN: Soft, nontender. Bowel sounds are positive. No ascites. She still has some fluid wave. EXTREMITIES: Reveal no edema. LABORATORY DATA: Sodium 140, potassium 3.7, BUN and creatinine are 11 and 0.7. Liver function tests are now normal. Troponin 0.26 and 0.22. Protein 5.9. Hemoglobin 3.1. Lipase 1182. ASSESSMENT: 1. 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 2. Severe aortic stenosis. Cath showed negative coronary artery disease. PLAN: We will decrease IV fluids to 75 mL an hour. Start clear liquids. Repeat labs tomorrow. It seems that she has improved markedly with her pain and labs. Job ID: [id number]
--- NOTE | 2019-11-27 17:25 | PDOC.HOSPP ---
- Subjective Encounter Date: 11/27/19 Encounter Time: 12:00 Subjective: The patient states her pain has improved some. She tolerated jello and clear broth this morning. She says she did not like the broth. No nausea or vomiting. She is on oxygen currently but is not on it at home. She is unclear why she is on it. - Objective Vital Signs & Weight: Vital Signs (12 hours) Temp Pulse Pulse Resp BP BP BP 11/27/19 15:05 99.5 F 76 20 154/75 H 11/27/19 14:57 82 194/79 H 154/75 H 11/27/19 11:10 97.8 F 80 20 11/27/19 09:05 11/27/19 07:09 98.3 F 80 24 H 11/27/19 06:08 69 18 11/27/19 05:42 90 BP Pulse Ox 11/27/19 15:05 95 11/27/19 14:57 11/27/19 11:10 163/66 H 94 L 11/27/19 09:05 157/76 H 11/27/19 07:09 195/88 H 96 11/27/19 06:08 177/74 H 94 L 11/27/19 05:42 207/82 H Weight Admit Weight 179 lb Weight 181 lb 11.2 oz I&O: 11/26/19 11/27/19 11/28/19 06:59 06:59 06:59 Intake Total 2050 4096 1648 Output Total 650 750 450 Balance 1400 3346 1198 Result Diagrams: 11/27/19 04:00 11/27/19 04:00 Hospitalist ROS - Review of Systems Constitutional: denies: fever, chills ENT: denies: mouth pain - Medication Medications: Active Medications Generic Name Dose Route Start Last Admin Trade Name Freq PRN Reason Stop Dose Admin Acetaminophen 650 mg 11/21/19 16:20 11/23/19 09:08 Tylenol PO 650 mg Q4H PRN Administration Headache/Fever/Mild Pain (1-3) Acetaminophen/Codeine Phosphate 1 tab 11/23/19 08:46 11/25/19 23:15 Tylenol #3 PO 1 tab Q4H PRN Administration Mild Pain (1-3) Acetaminophen/Codeine Phosphate 2 tab 11/23/19 08:46 11/26/19 23:05 Tylenol #3 PO 2 tab Q4H PRN Administration Moderate Pain (4-6) Hydralazine HCl 10 mg 11/22/19 13:19 11/27/19 03:46 Apresoline SLOW IVP 10 mg Q4H PRN Administration Blood Pressure Lactated Ringer's 1,000 mls @ 75 mls/hr 11/27/19 11:38 11/27/19 11:52 Lactated Ringer's IV 1,000 mls .[id number] [facility] Administration Levothyroxine Sodium 75 mcg 11/22/19 06:00 11/27/19 05:53 Synthroid PO 75 mcg 0600 [facility] Administration Lorazepam 0.5 mg 11/23/19 09:38 11/25/19 21:12 Ativan SLOW IVP 0.5 mg Q8H PRN Administration Anxiety Ondansetron HCl 4 mg 11/22/19 13:16 11/24/19 08:04 Zofran IVP 4 mg Q6H PRN Administration Nausea/Vomiting Pantoprazole Sodium 40 mg 11/27/19 09:00 11/27/19 09:03 Protonix PO 40 mg DAILY [facility] Administration Paroxetine HCl 20 mg 11/22/19 21:00 11/26/19 20:45 Paxil PO 20 mg HS [facility] Administration - Exam General Appearance: NAD, awake alert Eye: PERRL ENT: normocephalic atraumatic, no oropharyngeal lesions Neck: no JVD Heart: RRR, no gallops, no rubs Heart - other findings: systolic murmur in second intercostal space Respiratory: CTAB, no wheezes, no rales, no ronchi, normal chest expansion, no tachypnea, normal percussion Gastrointestinal: soft, non-distended, normal bowel sounds Gastrointestinal - other findings: epigastric tenderness Extremities: no cyanosis, no clubbing, no edema Skin: normal turgor, no lesions, no rashes Hosp A/P - Plan This is a 79 year old female with past medical history of hypertension who presented with chest pain and abdominal pain, was found to have pancreatitis #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 Needs TAVR as an outpatient #Elevated troponin - mild at 0.22. No chest pain currently. Cardiology signed off #Anemia - stable with Hb 11, will monitor Code status: full code
[2019-11-27] MEDS: PARoxetine 20 MG TAB PO SCH (20:42)
[2019-11-27] MEDS: Labetalol HCl 100 MG/20 ML VIAL SLOW IVP PRN (20:43)
[2019-11-27] MEDS ORDERED: Melatonin 3 MG TAB PO PRN (22:08)
[2019-11-28] MEDS: Labetalol HCl 100 MG/20 ML VIAL SLOW IVP PRN ×3 (00:53→23:54)
--- NOTE | 2019-11-28 01:13 | PDOC.EVN ---
Event Note - Event Note Event Note: Pt had 14 beats of Vtach, asymptomatic, will recheck electrolytes, add Mag level for AM labs. Will need to reconsult cardiology as needed as they have signed off for this admission.
[2019-11-28] MEDS: Nitroglycerin 0.4 MG TAB (25 Tab Bottle) SL PRN ×2 (03:10→03:18)
[2019-11-28 04:46] LABS: #Basophils 0.1 thou/uL (0.0-0.2); #Eosinphils 0.3 thou/uL (0.0-0.7); #Lymphocytes 1.2 thou/uL (1.20-3.40); #Monocytes 1.4 thou/uL (0.11-0.59); #Neutrophils 7.7 thou/uL (1.40-6.50); %Basophils 0.7 % (0.0-1.0); %Lymphocytes 10.9 % (21.0-51.0); %Monocytes 13.3 % (0.0-10.0); Hemoglobin 9.7 g/dL (12.0-16.0); Mean Corpuscular HGB CONC 32.6 g/dL (32.0-36.0); Mean Corpuscular Hemoglobin 31.3 pg (27.0-31.0); Mean Corpuscular Volume 95.8 fL (78.0-98.0); Platelet Count 170 thou/uL (130-400); RBC Distribution Width 12.1 % (11.5-14.5); Red Blood Cell (RBC) Count 3.09 mill/uL (4.20-5.40); White Blood Cell (WBC) Count 10.6 thou/uL (4.8-10.8)
[2019-11-28 05:16] LABS: Anion Gap 14 mmol/L (10-20); BUN (Urea Nitrogen) 9 mg/dL (9.8-20.1); Calc. Creatinine Clearance 92 mL/min (70-130); Calcium 7.9 mg/dL (7.8-10.44); Carbon Dioxide 22 mmol/L (23-31); Chloride 107 mmol/L (98-107); Estimated GFR-MDRD 78; Glucose 87 mg/dL (83-110); Lipase 45 U/L (8-78); Magnesium 1.5 mg/dL (1.6-2.6); Potassium 3.2 mmol/L (3.5-5.1); Sodium 140 mmol/L (136-145)
[2019-11-28] MEDS: Levothyroxine Sodium 75 MCG TAB PO SCH (06:02)
[2019-11-28] MEDS: Lactated Ringer's 1,000 ML IV SCH (07:55)
[2019-11-28] MEDS ORDERED: Magnesium 2 GM/50 ML 2 GM in Premix Bag 1 BAG IVPB SCH (10:15)
[2019-11-28] MEDS ORDERED: Lisinopril 20 MG TAB PO SCH ×2 (10:15→16:30)
[2019-11-28] MEDS ORDERED: Potassium Chloride 20 MEQ TAB PO SCH ×2 (10:15→14:15)
[2019-11-28] MEDS ORDERED: Metoprolol Tartrate 25 MG TAB PO SCH (12:00)
--- NOTE | 2019-11-28 12:11 | RAD ---
EXAM: XR Chest 1 View Portable PROVIDED CLINICAL HISTORY: Hypoxia COMPARISON: 11/21/2019 FINDINGS: Cardiac silhouette appears enlarged. Vascular calcification involves the aortic arch. Prominence of t he pulmonary vasculature and pulmonary interstitium. Left basilar pleural-parenchymal opacity. Right midlung zone airspace disease. No evidence for pneumothorax. IMPRESSION: Cardiomegaly and findings suggesting congestive failure with left basilar pleural fluid and adjacent atelectasis. Right midlung zone opacity may reflect edema. Correlation for superimposed pneumonia recommended.
[2019-11-28] MEDS ORDERED: Furosemide 20 MG/2 ML VIAL SLOW IVP SCH (12:30)
--- NOTE | 2019-11-28 12:46 | PRG ---
DATE OF SERVICE: 11/28/2019 SUBJECTIVE: Ms. Moyer states she has some chest pain last night, had to get some nitroglycerin sublingual. She denies any abdominal pain. She is tolerating diet. OBJECTIVE: VITAL SIGNS: Temperature is 97; pulse 84; blood pressure 174/72, now 152/67. GENERAL: She is resting comfortably in bed. She is alert and oriented. She denies chest pain presently. LUNGS: Clear. CARDIAC: She has 4/6 systolic ejection murmur. ABDOMEN: Soft and nontender. LABORATORY DATA: White count 10, hemoglobin 9.7, platelet count 170. Sodium 140, potassium 3.2, BUN and creatinine are 9 and 0.7. Lipase 45. ASSESSMENT: 1. Post endoscopic retrograde cholangiopancreatography pancreatitis, resolved. 2. 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 3. Severe aortic stenosis with recent cardiac catheterization. PLAN: Advance diet as tolerated. We will sign off from a gastroenterology standpoint. If I can be of any further assistance in her care in the future, please do not hesitate to contact me. I have recommended she avoid alcohol for 6 weeks, and then hopefully, she will not have any more bouts of pancreatitis as her sphincter of Oddi dysfunction and ampullary stenosis have been resolved. Job ID: [id number]
[2019-11-28 13:03] LABS: Magnesium 2.1 mg/dL (1.6-2.6); Potassium 3.5 mmol/L (3.5-5.1)
--- NOTE | 2019-11-28 13:07 | PRG ---
DATE OF SERVICE: 11/28/2019 PRIMARY LACQUER POLISHER: Yanet Alvarado MD SUBJECTIVE: Ms. Moyer had an episode of severe chest pain and also some ventricular arrhythmias including ventricular bigeminy and nonsustained ventricular tachycardia last night. She was also very hypertensive during that. She did have this morning some ventricular tachycardia, 5 beats. She also had 14 beats of ventricular tachycardia early this morning. She is feeling better now. She did receive labetalol. The patient is also very hypertensive. OBJECTIVE: VITAL SIGNS: Now, blood pressure 174/72, pulse 84 and regular. LUNGS: Clear. CARDIAC: There is a loud crescendo-decrescendo aortic stenosis murmur. ABDOMEN: Soft and nontender. EXTREMITIES: Warm and dry. No clubbing, cyanosis, or edema. ASSESSMENT: 1. Pancreatitis, improving, status post procedure as outlined above. 2. Angina, premature ventricular contractions, and ventricular tachycardia. 3. Severe aortic stenosis with normal coronary arteries. PLAN: 1. Add beta-blockers. 2. Keep her until tomorrow to make sure she is going to be stable. We will start with short-acting metoprolol 25 mg. If she does well, that could be changed to long-acting metoprolol tomorrow. Dr. Alvarado to resume care tomorrow. Job ID: [id number]
--- NOTE | 2019-11-28 14:22 | PDOC.HOSPP ---
- Subjective Encounter Date: 11/28/19 Encounter Time: 12:00 Subjective: Patient was laying in bed with oxygen on her chin and her oxygen saturation was noted to be 90% per nursing staff. Patient reports that she heard herself wheezing and feels some shortness of breath. She has no congestion. Yesterday her BP was up to 200 systolic. She had an episode of chest pain which was relieved by nitroglycerin. She also had some Vtach overnight. The patient denied feeling any palpitations The patient is tolerating soft diet today and would like to be advanced to a regular diet - Objective Vital Signs & Weight: Vital Signs (12 hours) Temp Pulse Resp BP BP Pulse Ox 11/28/19 12:33 78 191/75 H 11/28/19 11:55 98.0 F 78 16 191/75 H 98 11/28/19 10:38 174/72 H 11/28/19 08:35 97.7 F 70 16 174/72 H 95 11/28/19 03:37 98.7 F 84 14 152/67 H 95 Weight Admit Weight 179 lb Weight 198 lb 11.2 oz I&O: 11/27/19 11/28/19 11/29/19 06:59 06:59 06:59 Intake Total 4096 1888 Output Total 750 950 Balance 3346 938 Result Diagrams: 11/28/19 04:10 11/28/19 12:31 Hospitalist ROS - Review of Systems Constitutional: denies: fever, chills - Medication Medications: Active Medications Generic Name Dose Route Start Last Admin Trade Name Freq PRN Reason Stop Dose Admin Acetaminophen 650 mg 11/21/19 16:20 11/23/19 09:08 Tylenol PO 650 mg Q4H PRN Administration Headache/Fever/Mild Pain (1-3) Acetaminophen/Codeine Phosphate 1 tab 11/23/19 08:46 11/25/19 23:15 Tylenol #3 PO 1 tab Q4H PRN Administration Mild Pain (1-3) Acetaminophen/Codeine Phosphate 2 tab 11/23/19 08:46 11/26/19 23:05 Tylenol #3 PO 2 tab Q4H PRN Administration Moderate Pain (4-6) Furosemide 20 mg 11/28/19 12:30 11/28/19 14:18 Lasix SLOW IVP 11/28/19 14:30 20 mg NOW SHAWANDA Administration Hydralazine HCl 10 mg 11/22/19 13:19 11/27/19 03:46 Apresoline SLOW IVP 10 mg Q4H PRN Administration Blood Pressure Labetalol HCl 20 mg 11/27/19 17:49 11/28/19 12:33 Normodyne SLOW IVP 20 mg Q4H PRN Administration Hypertension Levothyroxine Sodium 75 mcg 11/22/19 06:00 11/28/19 06:02 Synthroid PO 75 mcg 0600 SHAWANDA Administration Lorazepam 0.5 mg 11/23/19 09:38 11/25/19 21:12 Ativan SLOW IVP 0.5 mg Q8H PRN Administration Anxiety Melatonin 3 mg 11/27/19 22:08 11/27/19 22:41 Melatonin PO 3 mg HSPRN PRN Administration Insomnia Morphine Sulfate 2 mg 11/21/19 17:03 11/28/19 03:34 Morphine SLOW IVP 2 mg Q6H PRN Administration Chest Pain Nitroglycerin 0.4 mg 11/23/19 08:46 11/28/19 03:18 Nitrostat SL 0.4 mg Q5MIN PRN Administration Chest Pain Ondansetron HCl 4 mg 11/22/19 13:16 11/24/19 08:04 Zofran IVP 4 mg Q6H PRN Administration Nausea/Vomiting Pantoprazole Sodium 40 mg 11/27/19 09:00 11/28/19 10:37 Protonix PO 40 mg DAILY SHAWANDA Administration Paroxetine HCl 20 mg 11/22/19 21:00 11/27/19 20:42 Paxil PO 20 mg HS SHAWANDA Administration Potassium Chloride 40 meq 11/28/19 14:15 11/28/19 14:18 K-Dur PO 11/28/19 16:00 40 meq NOW SHAWANDA Administration - Exam General Appearance: NAD, awake alert Eye: PERRL, anicteric sclera ENT: normocephalic atraumatic, no oropharyngeal lesions Neck: no JVD Heart: RRR, no murmur, no gallops, no rubs Respiratory - other findings: mild wheeze bilaterally Gastrointestinal: soft, non-tender, non-distended Extremities: no cyanosis, no clubbing, no edema Skin: normal turgor, no lesions, no rashes Neurological: cranial nerve grossly intact, normal sensation to touch, no focal deficits, no new deficit Hosp A/P - Plan Chest X ray: cardiomegaly with left basilar pleural fluid and right lung opacity This is a 79 year old female with past medical history of hypertension who presented with chest pain and abdominal pain, was found to have pancreatitis #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 Lipase normal today #Hypertensive urgency #Chest pain #Vtach # Elevated troponin - likely type II NSTEMI - likely from the IV fluids. These were discontinued yesterday. Her quinapril was resumed today - cardiology started patient back on coreg - will repeat ECHO - replaced electrolytes to keep K>4, Mg > 2 Acute hypoxic respiratory failure from pulmonary edema - chest X ray shows some pulmonary edema - will give 40 mg IV lasix - home oxygen evaluation #Severe aortic stenosis - cardiology signed off. Needs TAVR as an outpatient. Last ECHO showed moderate - ECHO will be repeated #Anemia - stable with Hb 9.7 #Leukocytosis - resolved Code status: full code
[2019-11-28] MEDS: hydrALAZINE 20 MG/ML VIAL SLOW IVP PRN (17:12)
[2019-11-28] MEDS: Metoprolol Tartrate 25 MG TAB PO SCH (20:18)
[2019-11-28] MEDS: PARoxetine 20 MG TAB PO SCH (20:18)
[2019-11-29] MEDS: Levothyroxine Sodium 75 MCG TAB PO SCH (05:16)
[2019-11-29 05:44] LABS: Anion Gap 15 mmol/L (10-20); BUN (Urea Nitrogen) 9 mg/dL (9.8-20.1); Calc. Creatinine Clearance 82 mL/min (70-130); Calcium 8.8 mg/dL (7.8-10.44); Carbon Dioxide 27 mmol/L (23-31); Chloride 103 mmol/L (98-107); Estimated GFR-MDRD 71; Glucose 100 mg/dL (83-110); Magnesium 1.9 mg/dL (1.6-2.6); Potassium 3.6 mmol/L (3.5-5.1); Sodium 141 mmol/L (136-145)
[2019-11-29] MEDS: Lisinopril 20 MG TAB PO SCH (07:54)
[2019-11-29] MEDS: Labetalol HCl 100 MG/20 ML VIAL SLOW IVP PRN ×2 (07:55→19:34)
[2019-11-29] MEDS: Metoprolol Tartrate 25 MG TAB PO SCH ×2 (07:55→20:53)
--- NOTE | 2019-11-29 07:56 | RAD ---
RADIOGRAPH CHEST 1 VIEW: DATE: 11/29/2019 TIME: 5:34 AM HISTORY: 79-year-old female with hypoxia COMPARISON: 11/28/2019 12:08 PM FINDINGS: Left lower lobe consolidation. Bilateral pleural effusions. Pulmonary venous congestion. Possible pul monary edema. No interval change. IMPRESSION: No interval change
[2019-11-29] MEDS ORDERED: Amlodipine 5 MG TAB PO SCH (09:00)
[2019-11-29] MEDS ORDERED: Lisinopril 20 MG TAB PO SCH (09:00)
--- NOTE | 2019-11-29 09:18 | PDOC.CPN ---
- Subjective Date: 11/29/19 Time: 08:30 Interval history: The pt seen and examined. No overnight events. No cardiac complaints. She complains of sharp pain to Rt chest with movement and deep breath. RN will put Humidifier to her NC for dry nose with nose bleeding - Objective Allergies/Adverse Reactions: Allergies Allergy/AdvReac Type Severity Reaction Status Date / Time Iodinated Contrast Media Allergy Rash Verified 11/22/19 03:36 Penicillins Allergy Verified 10/11/19 07:08 lactose AdvReac Verified 10/11/19 07:08 Visit Medications: Current Medications Acetaminophen (Tylenol) 650 mg PO Q4H PRN PRN Reason: Headache/Fever/Mild Pain (1-3) Last Admin: 11/23/19 09:08 Dose: 650 mg Acetaminophen/Codeine Phosphate (Tylenol #3) 1 tab PO Q4H PRN PRN Reason: Mild Pain (1-3) Last Admin: 11/25/19 23:15 Dose: 1 tab Acetaminophen/Codeine Phosphate (Tylenol #3) 2 tab PO Q4H PRN PRN Reason: Moderate Pain (4-6) Last Admin: 11/26/19 23:05 Dose: 2 tab Amlodipine Besylate (Norvasc) 5 mg PO DAILY COUNTS INCLUDE 234 BEDS AT THE [facility] Last Admin: 11/29/19 07:55 Dose: 5 mg Hydralazine HCl (Apresoline) 10 mg SLOW IVP Q4H PRN PRN Reason: Blood Pressure Last Admin: 11/28/19 17:12 Dose: 10 mg Labetalol HCl (Normodyne) 20 mg SLOW IVP Q4H PRN PRN Reason: Hypertension Last Admin: 11/29/19 07:55 Dose: 20 mg Levothyroxine Sodium (Synthroid) 75 mcg PO 0600 SHAWANDA Last Admin: 11/29/19 05:16 Dose: 75 mcg Lisinopril (Zestril) 40 mg PO DAILY COUNTS INCLUDE 234 BEDS AT THE [facility] Last Admin: 11/29/19 07:54 Dose: 40 mg Lorazepam (Ativan) 0.5 mg SLOW IVP Q8H PRN PRN Reason: Anxiety Last Admin: 11/25/19 21:12 Dose: 0.5 mg Melatonin (Melatonin) 3 mg PO HSPRN PRN PRN Reason: Insomnia Last Admin: 11/27/19 22:41 Dose: 3 mg Metoprolol Tartrate (Lopressor) 25 mg PO BID COUNTS INCLUDE 234 BEDS AT [facility] Last Admin: 11/29/19 07:55 Dose: 25 mg Morphine Sulfate (Morphine) 2 mg SLOW IVP Q6H PRN PRN Reason: Chest Pain Last Admin: 11/28/19 03:34 Dose: 2 mg Nitroglycerin (Nitrostat) 0.4 mg SL Q5MIN PRN PRN Reason: Chest Pain Last Admin: 11/28/19 03:18 Dose: 0.4 mg Ondansetron HCl (Zofran) 4 mg IVP Q6H PRN PRN Reason: Nausea/Vomiting Last Admin: 11/24/19 08:04 Dose: 4 mg Pantoprazole Sodium (Protonix) 40 mg PO DAILY COUNTS INCLUDE 234 BEDS AT [facility] Last Admin: 11/29/19 07:54 Dose: 40 mg Paroxetine HCl (Paxil) 20 mg PO HS COUNTS INCLUDE 234 BEDS AT THE [facility] Last Admin: 11/28/19 20:18 Dose: 20 mg Sodium Chloride (Flush - Normal Saline) 10 ml IVF PRN PRN PRN Reason: Saline Flush Last Admin: 11/28/19 23:57 Dose: 10 ml Vital Signs & Weight: Vital Signs Temp Pulse Resp BP BP Pulse Ox 11/29/19 07:55 76 203/87 H 11/29/19 07:54 203/87 H 11/29/19 07:35 97.8 F 76 19 203/87 H 96 11/29/19 04:36 98.3 F 71 18 190/82 H 96 11/29/19 00:42 95 11/28/19 23:46 78 18 192/74 H 95 Admit Weight 179 lb Weight 193 lb 11.2 oz - Physical Exam General: alert & oriented x3 HEENT: mucus membranes moist Neck: supple neck Cardiac: regular rate and rhythm, S1/S2 Lungs: clear to auscultation - Labs Result Diagrams: 11/28/19 04:10 11/29/19 04:51 Troponin/CKMB Troponin I 0.228 ng/mL (< 0.028) H 11/27/19 08:29 - Telemetry Sinus rhythms and dysrhythmias: sinus rhythm - Assessment/Plan Assessment/Plan: 1. Acute pancreatitis with s/p ERCP with sphincterotomy on 11/24/2019 - : LFT's and lipase decreased. No c/o of significant pain. 2. severe Aortic stenosis with MEGA 0.73 cm 2 - Plan for TAVR. Normal cors. EF > 75% 3. Chest pain: non cardiac. 4. HTN - 5. Hypothyroidism 6. s/p 14 beats of NSVT around 0100 on 11/28/2019 - no more episode over 24 hrs with Metoprolol 25mg BID; cath on 11/23/2019 with normal EF and coronary arteries. 7. pain to Rt chest with movement and deep breath - muscloskeletal etiology; PRN tylenol #3 MAR reviewed * Cath on 11/23/2019 with mild plaque in Lt main, LAD, and RCA; severe with MEGA 0.73cm2; EF > 75% * Will plan for TAVR per Dr. Sullivan her primary engraver lettering. Pt. seen and eval. by me. I agree with the A/P by the [employer].The BP has become elevated, continue to adjust betablockers, add amlodipine.. No further V-Tach. Home when the BP is stable. Chest clear. RRR, murmur. No change.[email or web address]
[2019-11-29] MEDS ORDERED: Furosemide 40 MG/4 ML VIAL SLOW IVP SCH (10:00)
[2019-11-29] MEDS: Acetaminophen/Codeine 30-300mg Tablet PO PRN (10:24)
--- NOTE | 2019-11-29 15:45 | PDOC.HOSPP ---
- Subjective Encounter Date: 11/29/19 Encounter Time: 11:30 Subjective: Patients BP was high overnight. She got IV lasix. Repeat X ray shows pulmonary edema. Patient was tried to wean off oxygen and per nurse patient was very tachypneic and oxygen saturation was 92% on 2L She denies chest pain or abdominal pain but heard herself wheeze - Objective Vital Signs & Weight: Vital Signs (12 hours) Temp Pulse Resp BP BP BP Pulse Ox 11/29/19 11:58 97.9 F 66 16 164/72 H 96 11/29/19 07:55 76 203/87 H 11/29/19 07:54 203/87 H 11/29/19 07:50 96 11/29/19 07:35 97.8 F 76 19 203/87 H 96 11/29/19 04:36 98.3 F 71 18 190/82 H 96 Weight Admit Weight 179 lb Weight 193 lb 11.2 oz I&O: 11/28/19 11/29/19 11/30/19 06:59 06:59 06:59 Intake Total 1888 1250 720 Output Total 950 2750 1100 Balance 938 -1500 -230 Result Diagrams: 11/28/19 04:10 11/29/19 04:51 Hospitalist ROS - Review of Systems Constitutional: denies: fever, chills Respiratory: denies: cough, dry - Medication Medications: Active Medications Generic Name Dose Route Start Last Admin Trade Name Freq PRN Reason Stop Dose Admin Acetaminophen 650 mg 11/21/19 16:20 11/23/19 09:08 Tylenol PO 650 mg Q4H PRN Administration Headache/Fever/Mild Pain (1-3) Acetaminophen/Codeine Phosphate 1 tab 11/23/19 08:46 11/25/19 23:15 Tylenol #3 PO 1 tab Q4H PRN Administration Mild Pain (1-3) Acetaminophen/Codeine Phosphate 2 tab 11/23/19 08:46 11/29/19 10:24 Tylenol #3 PO 2 tab Q4H PRN Administration Moderate Pain (4-6) Amlodipine Besylate 5 mg 11/29/19 09:00 11/29/19 07:55 Norvasc PO 5 mg DAILY SHAWANDA Administration Hydralazine HCl 10 mg 11/22/19 13:19 11/28/19 17:12 Apresoline SLOW IVP 10 mg Q4H PRN Administration Blood Pressure Labetalol HCl 20 mg 11/27/19 17:49 11/29/19 07:55 Normodyne SLOW IVP 20 mg Q4H PRN Administration Hypertension Levothyroxine Sodium 75 mcg 11/22/19 06:00 11/29/19 05:16 Synthroid PO 75 mcg 0600 SHAWANDA Administration Lisinopril 40 mg 11/29/19 09:00 11/29/19 07:54 Zestril PO 40 mg DAILY SHAWANDA Administration Lorazepam 0.5 mg 11/23/19 09:38 11/25/19 21:12 Ativan SLOW IVP 0.5 mg Q8H PRN Administration Anxiety Melatonin 3 mg 11/27/19 22:08 11/27/19 22:41 Melatonin PO 3 mg HSPRN PRN Administration Insomnia Metoprolol Tartrate 25 mg 11/28/19 21:00 11/29/19 07:55 Lopressor PO 25 mg BID SHAWANDA Administration Morphine Sulfate 2 mg 11/21/19 17:03 11/28/19 03:34 Morphine SLOW IVP 2 mg Q6H PRN Administration Chest Pain Nitroglycerin 0.4 mg 11/23/19 08:46 11/28/19 03:18 Nitrostat SL 0.4 mg Q5MIN PRN Administration Chest Pain Ondansetron HCl 4 mg 11/22/19 13:16 11/24/19 08:04 Zofran IVP 4 mg Q6H PRN Administration Nausea/Vomiting Pantoprazole Sodium 40 mg 11/27/19 09:00 11/29/19 07:54 Protonix PO 40 mg DAILY SHAWANDA Administration Paroxetine HCl 20 mg 11/22/19 21:00 11/28/19 20:18 Paxil PO 20 mg HS SHAWANDA Administration Sodium Chloride 10 ml 11/22/19 14:49 11/28/19 23:57 Flush - Normal Saline IVF 10 ml PRN PRN Administration Saline Flush - Exam General Appearance: NAD, awake alert Eye: PERRL, anicteric sclera ENT: normocephalic atraumatic, no oropharyngeal lesions Neck: no JVD Heart: RRR, no murmur, no gallops, no rubs Respiratory: CTAB, no ronchi Respiratory - other findings: mild crackles at the bases Gastrointestinal: soft, non-tender, non-distended, normal bowel sounds Extremities: no cyanosis, no clubbing, no edema Skin: normal turgor, no lesions, no rashes Hosp A/P - Plan Chest X ray: cardiomegaly with left basilar pleural fluid and right lung opacity Chestx ray 11/28: pulmonary edema This is a 79 year old female with past medical history of hypertension who presented with chest pain and abdominal pain, was found to have pancreatitis #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 Lipase normal #Acute hypoxic respiratory failure from pulmonary edema #Hypertensive urgency #Chest pain - likely from high BP/pulm edema #Vtach # Elevated troponin - likely type II NSTEMI - started IV lasix 40 mg daily. Will repeat Xray tomorrow - continue to try to wean oxygen sat to 92% - amlodipine 5 mg daily started 11/28 - continue metoprolol 25 mg po bid - lisinopril increased to 40 mg daily - #Moderate aortic stenosis - cardiology signed off. Needs TAVR as an outpatient. Last ECHO showed moderate #Anemia - stable with Hb 9.7 #Leukocytosis - resolved Code status: full code
[2019-11-29] MEDS ORDERED: Magnesium Oxide 400 MG TAB PO SCH (16:00)
[2019-11-29] MEDS ORDERED: Potassium Chloride 20 MEQ TAB PO SCH (16:00)
[2019-11-29] MEDS: PARoxetine 20 MG TAB PO SCH (20:53)
[2019-11-30] MEDS: Acetaminophen 325 MG TAB PO PRN (02:30)
[2019-11-30 04:57] LABS: Hemoglobin 10.7 g/dL (12.0-16.0); Mean Corpuscular HGB CONC 33.1 g/dL (32.0-36.0); Mean Corpuscular Hemoglobin 31.7 pg (27.0-31.0); Mean Corpuscular Volume 95.7 fL (78.0-98.0); Platelet Count 232 thou/uL (130-400); RBC Distribution Width 11.9 % (11.5-14.5); Red Blood Cell (RBC) Count 3.38 mill/uL (4.20-5.40); White Blood Cell (WBC) Count 9.2 thou/uL (4.8-10.8)
[2019-11-30] MEDS: Levothyroxine Sodium 75 MCG TAB PO SCH (05:06)
[2019-11-30 05:20] LABS: Anion Gap 11 mmol/L (10-20); BUN (Urea Nitrogen) 10 mg/dL (9.8-20.1); Calc. Creatinine Clearance 70 mL/min (70-130); Calcium 8.6 mg/dL (7.8-10.44); Carbon Dioxide 30 mmol/L (23-31); Chloride 102 mmol/L (98-107); Estimated GFR-MDRD 64; Glucose 102 mg/dL (83-110); Potassium 3.3 mmol/L (3.5-5.1); Sodium 140 mmol/L (136-145)
[2019-11-30] MEDS: Labetalol HCl 100 MG/20 ML VIAL SLOW IVP PRN (07:43)
[2019-11-30] MEDS ORDERED: Potassium Chloride 20 MEQ TAB PO SCH (07:45)
[2019-11-30] MEDS ORDERED: Furosemide 40 MG/4 ML VIAL SLOW IVP SCH (09:00)
--- NOTE | 2019-11-30 09:13 | PDOC.CPN ---
- Subjective Date: 11/30/19 Time: 09:15 Interval history: The pt seen and examined. No overnight events. No cardiac complaints. She is resting well in the bed this AM - Objective Allergies/Adverse Reactions: Allergies Allergy/AdvReac Type Severity Reaction Status Date / Time Iodinated Contrast Media Allergy Rash Verified 11/22/19 03:36 Penicillins Allergy Verified 10/11/19 07:08 lactose AdvReac Verified 10/11/19 07:08 Visit Medications: Current Medications Acetaminophen (Tylenol) 650 mg PO Q4H PRN PRN Reason: Headache/Fever/Mild Pain (1-3) Last Admin: 11/30/19 02:30 Dose: 650 mg Acetaminophen/Codeine Phosphate (Tylenol #3) 1 tab PO Q4H PRN PRN Reason: Mild Pain (1-3) Last Admin: 11/25/19 23:15 Dose: 1 tab Acetaminophen/Codeine Phosphate (Tylenol #3) 2 tab PO Q4H PRN PRN Reason: Moderate Pain (4-6) Last Admin: 11/29/19 10:24 Dose: 2 tab Amlodipine Besylate (Norvasc) 10 mg PO DAILY [facility] Furosemide (Lasix) 40 mg SLOW IVP DAILY [facility] Hydralazine HCl (Apresoline) 10 mg SLOW IVP Q4H PRN PRN Reason: Blood Pressure Last Admin: 11/28/19 17:12 Dose: 10 mg Labetalol HCl (Normodyne) 20 mg SLOW IVP Q4H PRN PRN Reason: Hypertension Last Admin: 11/30/19 07:43 Dose: 20 mg Levothyroxine Sodium (Synthroid) 75 mcg PO 0600 [facility] Last Admin: 11/30/19 05:06 Dose: 75 mcg Lisinopril (Zestril) 40 mg PO DAILY [facility] Last Admin: 11/29/19 07:54 Dose: 40 mg Lorazepam (Ativan) 0.5 mg SLOW IVP Q8H PRN PRN Reason: Anxiety Last Admin: 11/25/19 21:12 Dose: 0.5 mg Melatonin (Melatonin) 3 mg PO HSPRN PRN PRN Reason: Insomnia Last Admin: 11/27/19 22:41 Dose: 3 mg Metoprolol Tartrate (Lopressor) 25 mg PO BID [facility] Last Admin: 11/29/19 20:53 Dose: 25 mg Morphine Sulfate (Morphine) 2 mg SLOW IVP Q6H PRN PRN Reason: Chest Pain Last Admin: 11/28/19 03:34 Dose: 2 mg Nitroglycerin (Nitrostat) 0.4 mg SL Q5MIN PRN PRN Reason: Chest Pain Last Admin: 11/28/19 03:18 Dose: 0.4 mg Ondansetron HCl (Zofran) 4 mg IVP Q6H PRN PRN Reason: Nausea/Vomiting Last Admin: 11/24/19 08:04 Dose: 4 mg Pantoprazole Sodium (Protonix) 40 mg PO DAILY [facility] Last Admin: 11/29/19 07:54 Dose: 40 mg Paroxetine HCl (Paxil) 20 mg PO HS [facility] Last Admin: 11/29/19 20:53 Dose: 20 mg Potassium Chloride (K-Dur) 20 meq PO [facility] Sodium Chloride (Flush - Normal Saline) 10 ml IVF PRN PRN PRN Reason: Saline Flush Last Admin: 11/29/19 19:36 Dose: 10 ml Vital Signs & Weight: Vital Signs Temp Pulse Resp BP BP Pulse Ox 11/30/19 08:05 158/67 H 11/30/19 07:26 97.4 F L 61 15 207/78 H 96 11/30/19 03:21 97.7 F 60 18 172/74 H 95 11/29/19 23:49 66 177/74 H Admit Weight 179 lb Weight 181 lb - Physical Exam General: alert & oriented x3 HEENT: mucus membranes moist Neck: supple neck Cardiac: regular rate and rhythm, S1/S2 Lungs: decreased breath sounds - Labs Result Diagrams: 11/30/19 04:18 11/30/19 04:18 Troponin/CKMB Troponin I 0.228 ng/mL (< 0.028) H 11/27/19 08:29 - Telemetry Sinus rhythms and dysrhythmias: sinus rhythm - Assessment/Plan Assessment/Plan: 1. Acute pancreatitis with s/p ERCP with sphincterotomy on 11/24/2019 - : LFT's and lipase decreased. No c/o of significant pain. 2. severe Aortic stenosis with MEGA 0.73 cm 2 - Plan for TAVR. Normal cors. EF > 75% 3. Chest pain: non cardiac. 4. HTN - will increase Norvasc to 10mg qd; on Hydralazine PRN 5. Hypothyroidism 6. s/p 14 beats of NSVT around 0100 on 11/28/2019 - no more episode over 24 hrs with Metoprolol 25mg BID; cath on 11/23/2019 with normal EF and coronary arteries. 7. pain to Rt chest with movement and deep breath - muscloskeletal etiology; PRN tylenol #3 MAR reviewed * Cath on 11/23/2019 with mild plaque in Lt main, LAD, and RCA; severe with MEGA 0.73cm2; EF > 75% * Will plan for TAVR per Dr. Sullivan her primary shuttle car operator. pt. seen and eval. by me. I agree with the a/P by the [employer]. RRR, murmur, chest clear. Home when BP controlled.
[2019-11-30] MEDS: Amlodipine 10 MG TAB PO SCH (09:17)
[2019-11-30] MEDS: Metoprolol Tartrate 25 MG TAB PO SCH ×2 (09:18→20:43)
[2019-11-30] MEDS: Lisinopril 20 MG TAB PO SCH (09:23)
[2019-11-30] MEDS ORDERED: cloNIDine 0.1 MG TAB PO PRN (10:04)
--- NOTE | 2019-11-30 12:54 | RAD ---
AP CHEST: HISTORY: Pulmonary edema. COMPARISON: 11/29/2019. FINDINGS: Small bilateral effusions. Hazy bibasilar infiltrates remain. Upper lung mahoney are clear. Heart s ize upper normal. IMPRESSION: Small bilateral effusions. Hazy bibasilar infiltrates and/or atelectasis. No significantly changed. POS: AGW
--- NOTE | 2019-11-30 18:23 | PDOC.HOSPP ---
- Subjective Encounter Date: 11/30/19 Encounter Time: 18:23 Subjective: Patient is doing better. SHe ambulated and maintain sats > 90% on room air. She states she prefers to go home tomorrow because is worried about what will happen with her blood pressure at night. She denies chest pain She complains her voice slightly raspy and has some fatigue while ambultaing - Objective Vital Signs & Weight: Vital Signs (12 hours) Temp Pulse Pulse Pulse Resp BP BP 11/30/19 15:37 98.3 F 65 15 11/30/19 14:38 70 66 136/64 112/58 L 11/30/19 11:37 97.6 F 65 18 11/30/19 10:05 11/30/19 08:05 11/30/19 07:26 97.4 F L 61 15 BP BP Pulse Ox 11/30/19 15:37 144/64 H 94 L 11/30/19 14:38 11/30/19 11:37 153/67 H 92 L 11/30/19 10:05 93 L 11/30/19 08:05 158/67 H 11/30/19 07:26 207/78 H 96 Weight Admit Weight 179 lb Weight 181 lb I&O: 11/29/19 11/30/19 12/01/19 06:59 06:59 06:59 Intake Total 1250 1950 720 Output Total 2750 3750 2400 Balance -1500 -1800 -1680 Result Diagrams: 11/30/19 04:18 11/30/19 04:18 Hospitalist ROS - Review of Systems Constitutional: denies: fever, chills Respiratory: denies: cough, dry, shortness of breath - Medication Medications: Active Medications Generic Name Dose Route Start Last Admin Trade Name Freq PRN Reason Stop Dose Admin Acetaminophen 650 mg 11/21/19 16:20 11/30/19 02:30 Tylenol PO 650 mg Q4H PRN Administration Headache/Fever/Mild Pain (1-3) Acetaminophen/Codeine Phosphate 1 tab 11/23/19 08:46 11/25/19 23:15 Tylenol #3 PO 1 tab Q4H PRN Administration Mild Pain (1-3) Acetaminophen/Codeine Phosphate 2 tab 11/23/19 08:46 11/29/19 10:24 Tylenol #3 PO 2 tab Q4H PRN Administration Moderate Pain (4-6) Amlodipine Besylate 10 mg 11/30/19 09:00 11/30/19 09:17 Norvasc PO 10 mg DAILY SHAWANDA Administration Furosemide 40 mg 11/30/19 09:00 11/30/19 09:17 Lasix SLOW IVP 40 mg DAILY SHAWANDA Administration Hydralazine HCl 10 mg 11/22/19 13:19 11/28/19 17:12 Apresoline SLOW IVP 10 mg Q4H PRN Administration Blood Pressure Labetalol HCl 20 mg 11/27/19 17:49 11/30/19 07:43 Normodyne SLOW IVP 20 mg Q4H PRN Administration Hypertension Levothyroxine Sodium 75 mcg 11/22/19 06:00 11/30/19 05:06 Synthroid PO 75 mcg 0600 SHAWANDA Administration Lisinopril 40 mg 11/29/19 09:00 11/30/19 09:23 Zestril PO 40 mg DAILY SHAWANDA Administration Lorazepam 0.5 mg 11/23/19 09:38 11/25/19 21:12 Ativan SLOW IVP 0.5 mg Q8H PRN Administration Anxiety Melatonin 3 mg 11/27/19 22:08 11/27/19 22:41 Melatonin PO 3 mg HSPRN PRN Administration Insomnia Metoprolol Tartrate 25 mg 11/28/19 21:00 11/30/19 09:18 Lopressor PO 25 mg BID SHAWANDA Administration Morphine Sulfate 2 mg 11/21/19 17:03 11/28/19 03:34 Morphine SLOW IVP 2 mg Q6H PRN Administration Chest Pain Nitroglycerin 0.4 mg 11/23/19 08:46 11/28/19 03:18 Nitrostat SL 0.4 mg Q5MIN PRN Administration Chest Pain Ondansetron HCl 4 mg 11/22/19 13:16 11/24/19 08:04 Zofran IVP 4 mg Q6H PRN Administration Nausea/Vomiting Pantoprazole Sodium 40 mg 11/27/19 09:00 11/30/19 09:18 Protonix PO 40 mg DAILY SHAWANDA Administration Paroxetine HCl 20 mg 11/22/19 21:00 11/29/19 20:53 Paxil PO 20 mg HS SHAWANDA Administration Sodium Chloride 10 ml 11/22/19 14:49 11/29/19 19:36 Flush - Normal Saline IVF 10 ml PRN PRN Administration Saline Flush - Exam General Appearance: NAD, awake alert Eye: PERRL, anicteric sclera ENT: normocephalic atraumatic, no oropharyngeal lesions Neck: no JVD Heart: RRR, no murmur, no gallops, no rubs Respiratory: CTAB, no wheezes, no rales, no ronchi Gastrointestinal: soft, non-tender, non-distended, normal bowel sounds Extremities: no cyanosis, no clubbing, no edema Skin: normal turgor, no lesions, no rashes Neurological: cranial nerve grossly intact, normal sensation to touch, no focal deficits, no new deficit Musculoskeletal: normal tone, normal strength, no muscle wasting Psychiatric: normal affect, normal behavior, A&O x 3 Hosp A/P - Plan Chest X ray: cardiomegaly with left basilar pleural fluid and right lung opacity Chestx ray 11/28: pulmonary edema This is a 79 year old female with past medical history of hypertension who presented with chest pain and abdominal pain, was found to have pancreatitis #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 Lipase normal #HTN urgency - amlodipine started 11/28. Increased to 10 mg daily 11/29 due to BP of 200 - will monitor overnight for elevated BP - continue lisinopril 40 mg #Acute hypoxic respiratory failure from pulmonary edema- resolved --started IV lasix 40 mg daily. REpeat X ray shows improvement. Will change to oral lasix in the am - now on room air #Chest pain - likely from high BP/pulm edema - resolved # Elevated troponin - likely type II NSTEMI - no ECHO needed per cardiology #Moderate aortic stenosis - cardiology signed off. Needs TAVR as an outpatient. Last ECHO showed moderate #Anemia -Hb 10.7 #Leukocytosis - resolved Code status: full code
[2019-11-30] MEDS: PARoxetine 20 MG TAB PO SCH (20:43)
[2019-12-01] MEDS: hydrALAZINE 20 MG/ML VIAL SLOW IVP PRN (00:13)
[2019-12-01] MEDS: Ondansetron PF 4 MG/2 ML Vial IVP PRN (03:16)
[2019-12-01] MEDS: Acetaminophen/Codeine 30-300mg Tablet PO PRN (03:16)
[2019-12-01 05:03] LABS: Potassium 3.1 mmol/L (3.5-5.1)
[2019-12-01] MEDS: Levothyroxine Sodium 75 MCG TAB PO SCH (05:32)
[2019-12-01] MEDS ORDERED: Furosemide 40 MG TAB PO SCH (07:30)
[2019-12-01] MEDS ORDERED: Potassium Chloride 20 MEQ TAB PO SCH ×3 (08:00→09:15)
[2019-12-01] MEDS: Lisinopril 20 MG TAB PO SCH (08:31)
[2019-12-01] MEDS: Amlodipine 10 MG TAB PO SCH (08:32)
[2019-12-01] MEDS: Metoprolol Tartrate 25 MG TAB PO SCH (08:32)
--- NOTE | 2019-12-01 08:43 | PDOC.CPN ---
- Subjective Date: 12/01/19 Time: 08:43 Interval history: The pt seen and examined. No overnight events. No cardiac complaints. She is resting well in her bed this AM. - Objective Allergies/Adverse Reactions: Allergies Allergy/AdvReac Type Severity Reaction Status Date / Time Iodinated Contrast Media Allergy Rash Verified 11/22/19 03:36 Penicillins Allergy Verified 10/11/19 07:08 lactose AdvReac Verified 10/11/19 07:08 Visit Medications: Current Medications Acetaminophen (Tylenol) 650 mg PO Q4H PRN PRN Reason: Headache/Fever/Mild Pain (1-3) Last Admin: 11/30/19 02:30 Dose: 650 mg Acetaminophen/Codeine Phosphate (Tylenol #3) 1 tab PO Q4H PRN PRN Reason: Mild Pain (1-3) Last Admin: 12/01/19 03:16 Dose: 1 tab Acetaminophen/Codeine Phosphate (Tylenol #3) 2 tab PO Q4H PRN PRN Reason: Moderate Pain (4-6) Last Admin: 11/29/19 10:24 Dose: 2 tab Amlodipine Besylate (Norvasc) 10 mg PO DAILY [facility] Last Admin: 12/01/19 08:32 Dose: 10 mg Clonidine (Catapres) 0.1 mg PO Q4H PRN PRN Reason: SBP> 160 Furosemide (Lasix) 40 mg PO DAILY-[facility] Last Admin: 12/01/19 08:32 Dose: 40 mg Hydralazine HCl (Apresoline) 10 mg SLOW IVP Q4H PRN PRN Reason: Blood Pressure Last Admin: 12/01/19 00:13 Dose: 10 mg Hydralazine HCl (Apresoline) 25 mg PO BID [facility] Last Admin: 12/01/19 08:31 Dose: 25 mg Labetalol HCl (Normodyne) 20 mg SLOW IVP Q4H PRN PRN Reason: Hypertension Last Admin: 11/30/19 07:43 Dose: 20 mg Levothyroxine Sodium (Synthroid) 75 mcg PO 0600 [facility] Last Admin: 12/01/19 05:32 Dose: 75 mcg Lisinopril (Zestril) 40 mg PO DAILY [facility] Last Admin: 12/01/19 08:31 Dose: 40 mg Lorazepam (Ativan) 0.5 mg SLOW IVP Q8H PRN PRN Reason: Anxiety Last Admin: 11/25/19 21:12 Dose: 0.5 mg Melatonin (Melatonin) 3 mg PO HSPRN PRN PRN Reason: Insomnia Last Admin: 11/27/19 22:41 Dose: 3 mg Metoprolol Tartrate (Lopressor) 25 mg PO BID SHAWANDA Last Admin: 12/01/19 08:32 Dose: 25 mg Morphine Sulfate (Morphine) 2 mg SLOW IVP Q6H PRN PRN Reason: Chest Pain Last Admin: 11/28/19 03:34 Dose: 2 mg Nitroglycerin (Nitrostat) 0.4 mg SL Q5MIN PRN PRN Reason: Chest Pain Last Admin: 11/28/19 03:18 Dose: 0.4 mg Ondansetron HCl (Zofran) 4 mg IVP Q6H PRN PRN Reason: Nausea/Vomiting Last Admin: 12/01/19 03:16 Dose: 4 mg Pantoprazole Sodium (Protonix) 40 mg PO DAILY [facility] Last Admin: 12/01/19 08:32 Dose: 40 mg Paroxetine HCl (Paxil) 20 mg PO HS [facility] Last Admin: 11/30/19 20:43 Dose: 20 mg Potassium Chloride (K-Dur) 40 meq PO QAM-WM SHAWANDA Potassium Chloride (K-Dur) 40 meq PO BID-WM [facility] Stop: 12/01/19 23:59 Last Admin: 12/01/19 08:31 Dose: 40 meq Sodium Chloride (Flush - Normal Saline) 10 ml IVF PRN PRN PRN Reason: Saline Flush Last Admin: 11/29/19 19:36 Dose: 10 ml Vital Signs & Weight: Vital Signs Temp Pulse Resp BP BP Pulse Ox 12/01/19 07:31 99.1 F 65 20 119/55 L 91 L 12/01/19 06:48 96 12/01/19 03:14 98.2 F 69 18 131/63 96 12/01/19 00:13 162/70 H 12/01/19 00:00 98.6 F 61 18 162/70 H 94 L Admit Weight 179 lb Weight 178 lb 14.4 oz - Physical Exam General: alert & oriented x3 HEENT: mucus membranes moist Neck: supple neck Cardiac: regular rate and rhythm, S1/S2 Lungs: clear to auscultation - Labs Result Diagrams: 11/30/19 04:18 12/01/19 12:57 Troponin/CKMB Troponin I 0.228 ng/mL (< 0.028) H 11/27/19 08:29 - Telemetry Sinus rhythms and dysrhythmias: sinus rhythm - Assessment/Plan Assessment/Plan: 1. Acute pancreatitis with s/p ERCP with sphincterotomy on 11/24/2019 : LFT's and lipase decreased. No c/o of significant pain. 2. severe Aortic stenosis with MEGA 0.73 cm 2 - Plan for TAVR. Normal cors. EF > 75% 3. Chest pain: non cardiac. 4. HTN - The pt received Hydralazine IV PRN last night; her BP this AM is stable ; will start Hydralazine 25mg BID from this AM; 5. Hypothyroidism 6. s/p 14 beats of NSVT around 0100 on 11/28/2019 - no more episode over 24 hrs with Metoprolol 25mg BID; cath on 11/23/2019 with normal EF and coronary arteries. 7. pain to Rt chest with movement and deep breath - muscloskeletal etiology; PRN tylenol #3 MAR reviewed * Cath on 11/23/2019 with mild plaque in Lt main, LAD, and RCA; severe with MEGA 0.73cm2; EF > 75% * Will plan for TAVR per Dr. Sullivan her primary claim processor. * From Cardiac standpoint, the pt may be d/gladys home when her VS is stable this afternoon Pt. seen and eval. by me. I agree with the A/P by the ONLINE TUTOR. She complained of left up sharp chest pain a little while ago with shooting pain to the neck. EKG is unremarkable. The BP is stable and she is stable to d/c to home. virgilio
[2019-12-01] MEDS ORDERED: hydrALAZINE 25 MG TAB PO SCH (09:00)
[2019-12-01 12:17] VITALS: BMI 26.4
[2019-12-01] MEDS: Nitroglycerin 0.4 MG TAB (25 Tab Bottle) SL PRN (14:06)
[2019-12-01 15:39] VITALS: BP 120/59; TEMP 96.7
--- NOTE | 2019-12-01 16:00 | DIS ---
DATE OF ADMISSION: 11/21/2019 DATE OF DISCHARGE: 12/01/2019 DISCHARGE DIAGNOSES: 1. Recurrent biliary pancreatitis. 2. Acute hypoxic respiratory failure secondary to pulmonary edema. 3. Hypertensive urgency. 4. Chest pain. 5. Elevated troponins. 6. Moderate aortic stenosis. 7. Anemia. 8. Leukocytosis. CONSULTATIONS: Cardiology with Dr. Marcus Alvarado, Dr. Jono Ball with GI. PROCEDURES: Endoscopic retrograde cholangiopancreatography with sphincterotomy on November 23. HISTORY OF PRESENT ILLNESS: This is a 79-year-old female with a past medical history of hypertension, unsteady gait, and hypothyroidism, who presented to the emergency room with chest pain radiating to her neck as well as epigastric pain. Her lipase was noted to be 1259. The patient was admitted to the hospital for further workup. She had a chest x-ray on admission, which showed some pulmonary hypertension. HOSPITAL COURSE: Recurrent biliary pancreatitis: The patient underwent a CT scan of her abdomen on November 21, which showed focal pancreatitis of the tail of the pancreas. She also had enlargement of the biliary tree and a small left renal cyst. She was seen in GI by consultation due to increasing alkaline phosphatase to 171. She eventually underwent an ERCP on 11/[address] Kelsey. She was noted to have a very plump ampulla and a normal cholangiogram without any filling defect. She underwent sphincterotomy. The patient did have some abdominal pain postprocedure. Her diet was slowly advanced to regular diet. Her lipase trended down to normal. Per GI, she should have no further attacks of pancreatitis. Acute hypoxic respiratory failure secondary to pulmonary edema: The patient was requiring oxygen up to 2 L while in the hospital. She did have a chest x-ray, which showed some pulmonary vascular congestion. She was diuresed with IV Lasix 40 mg. Eventually, she was weaned down to room air. She will be discharged on Lasix 20 mg, which she can take p.r.n. if her blood pressure consistently remains above 140 and if she has any chest congestion or edema. Chest pain: The patient did have some episodes of chest pain while in the hospital. She also had some episodes of nonsustained ventricular tachycardia. This resolved with correction of her hypokalemia. Her chest pain most likely was secondary to high blood pressure. This resolved on the day of discharge. Per Dr. Alvarado, the patient has normal coronaries. Therefore, no further workup needs to be done. Hypertensive urgency: The patient was receiving IV fluids during her hospital course for pancreatitis. Her blood pressure then increased persistently to 180 to 200, especially at night. She was started on amlodipine, hydralazine, metoprolol in addition to her quinapril that she takes at home. She was also diuresed with IV lasix for pulmonary edema. She can hold any of these medications if her blood pressure drops to less than 100. She should take amlodipine 10 mg daily, quinapril 40 mg daily, metoprolol 25 mg b.i.d. and hydralazine 25 mg b.i.d on discharge. She will also be given p.r.n. Lasix. Elevated troponin: The patient did have a slightly elevated troponin of 0.261 on the , which trended down to 0.228. Repeat echo was not done since she had one recently with Dr. Alvarado. Per Dr. Alvarado, she has normal coronaries. Aortic stenosis: The patient was seen by Cardiology in consultation for this. She was noted to have severe aortic stenosis on her cardiac cath on November 22. She will get a TAVR per Dr. Sullivan, who was her primary repair welder as an outpatient. Anemia: The patient's hemoglobin was 10.7 on the day of discharge. This can be monitored further as an outpatient. Hypokalemia: The patient did have some diarrhea this morning. Her potassium was 3.1. Her repeat potassium came back to 4.0. She can be discharged with potassium supplements p.r.n. if she has recurrent diarrhea. DISCHARGE PHYSICAL EXAMINATION: VITAL SIGNS: Temperature 98.4, heart rate 72, respiratory rate 17, O2 saturations 96% on room air, and blood pressure 104/51. GENERAL: The patient is alert and awake and oriented x3. CVS: Regular rate and rhythm with a systolic murmur in the right second intercostal space. LUNGS: Clear to auscultation bilaterally. ABDOMEN: Positive bowel sounds. Soft, nontender, nondistended. EXTREMITIES: No edema. PERTINENT LABORATORY DATA: CBC on 11/29: Hemoglobin 10.7, hematocrit 32.4. Rest of CBC unremarkable. BMP on 11/29: Unremarkable except for potassium of 3.3. Repeat potassium on was normal. Mag on 11/28: 1.9. LFTs: AST 21, ALT 32, alkaline phosphatase 86 on 11/26. Lipase: 12,336 on 11/24, 5270 on 11/25, 1182 on 11/26. Lipid panel: Triglycerides 71, cholesterol 109, LDL 56, HDL 39. Troponin I 0.021, 0.016, 0.015, 0.021, 0.261, 0.228. IMAGING: Chest x-ray on 11/20: Shows mild pulmonary hypertension. CT abdomen on 11/21: Shows focal pancreatitis of the tail of the pancreas. Enlargement of the biliary tree. Small left renal cyst. ERCP x-ray on 11/23: Shows a very plump ampulla. Normal cholangiogram without filling defect. Chest x-ray on 11/27: Shows cardiomegaly and edema. Chest x-ray on 11/28: Shows left lower lobe consolidation. Bilateral pleural effusions. Pulmonary vascular congestion. Chest x-ray on 11/29: Shows small bilateral effusions. Hazy bibasilar infiltrates and/or atelectasis. No significant change. DISCHARGE CONDITION: Stable. ACTIVITY: As tolerated. DIET: Heart healthy diet. DISCHARGE MEDICATIONS: New prescriptions: 1. Amlodipine 10 mg p.o. daily. 2. Hydralazine 25 mg p.o. b.i.d. 3. Metoprolol 25 mg p.o. b.i.d. 4. K-Dur 20 mEq p.o. daily p.r.n. 5. Furosemide 20 mg p.o. daily p.r.n. All other home medications were resumed. DISCHARGE INSTRUCTIONS: The patient to follow up with her PCP in a week. She should follow up with her repair welder for aortic valve replacement procedure. She should avoid alcohol for 6 weeks. She should have her potassium levels and kidney function repeated in a week. Consider followup as an outpatient for her left renal cyst. Job ID: [id number] [facility]
[2019-12-01] MEDS ORDERED: hydrALAZINE 10 MG TAB PO SCH (21:00)
--- NOTE | 2019-12-01 21:40 | EKG ---
Test Reason : C/O CHEST PAIN Blood Pressure : / mmHG Vent. Rate : 074 BPM Atrial Rate : 074 BPM P-R Int : 144 ms QRS Dur : 088 ms QT Int : 406 ms P-R-T Axes : 060 045 015 degrees QTc Int : 450 ms Normal sinus rhythm Normal ECG When compared with ECG of 28-NOV-2019 15:17, (Unconfirmed) No significant change was found Confirmed by MARIANELA TITUS, . SSeamus ([id number]) on 12/01/2019 9:39:51 PM Referred By: AGUSTÍN Confirmed By:DR. Eldon BEAR MD
[2019-12-02] MEDS ORDERED: Potassium Chloride 20 MEQ TAB PO SCH (08:00)
--- NOTE | 2019-12-02 16:49 | EKG ---
Test Reason : CP Blood Pressure : / mmHG Vent. Rate : 068 BPM Atrial Rate : 068 BPM P-R Int : 170 ms QRS Dur : 094 ms QT Int : 398 ms P-R-T Axes : 061 006 029 degrees QTc Int : 423 ms Sinus rhythm with marked sinus arrhythmia Minimal voltage criteria for LVH, may be normal variant Nonspecific T wave abnormality Abnormal ECG Confirmed by TY TITUS, BABAK ([id number]), editor at large JOCELIN TREVINO ([id number]) on 12/02/2019 4:49:21 PM Referred By: MYNOR Confirmed By:BABAK CRAWFORD MD
== END 2019-12-01 16:15 | disposition home or self-care (01) | DRG 438 ==
LOC: ERS 13:04 → 2NO 16:31
PROVIDERS: ADMIT Internal Medicine; ATTEND Internal Medicine
PROC: 4A023N8 Measurement of Cardiac Sampling and Pressure, Bilateral, Percutaneous Approach (ICD-10-PCS; 2019-11-23)
PROC: B2161ZZ Fluoroscopy of Right and Left Heart using Low Osmolar Contrast (ICD-10-PCS; 2019-11-23)
PROC: B2111ZZ Fluoroscopy of Multiple Coronary Arteries using Low Osmolar Contrast (ICD-10-PCS; 2019-11-23)
PROC: 0F7D8ZZ Dilation of Pancreatic Duct, Via Natural or Artificial Opening Endoscopic (ICD-10-PCS; principal; 2019-11-24)
DX: K85.10 Biliary acute pancreatitis without necrosis or infection (principal); J96.01 Acute respiratory failure with hypoxia; I21.A1 Myocardial infarction type 2; I47.2 Ventricular tachycardia; J81.1 Chronic pulmonary edema; I16.0 Hypertensive urgency; I35.0 Nonrheumatic aortic (valve) stenosis; D72.829 Elevated white blood cell count, unspecified; D64.9 Anemia, unspecified; I10 Essential (primary) hypertension; E03.9 Hypothyroidism, unspecified; I27.20 Pulmonary hypertension, unspecified; E87.6 Hypokalemia; Z88.0 Allergy status to penicillin; Z91.011 Allergy to milk products; Z91.041 Radiographic dye allergy status; Z79.899 Other long term (current) drug therapy; Z79.890 Hormone replacement therapy; Z90.49 Acquired absence of other specified parts of digestive tract
CPT/HCPCS: 36415; 71045; 74170; 74330; 80048; 80053; 80061; 80076; 82550; 83690; 83735; 83880; 84132; 84484; 85025; 85027; 85379; 93005; 93010; 93460; 93561; 93567; 94150; 94760; 96361; 96374; 99152; 99153; C1769; C9113; J0360; J1200; J1610; J1644; J1940; J1956; J2001; J2060; J2250; J2270; J2370; J2405; J3010; J3475; J3480; J7512; Q0163; Q9967

== ENCOUNTER 2020-07-28 13:23 | Inpatient (IN) | payer MEDICARE, OTHER, SELFPAY ==
[~2020-07-28 13:23] MED LIST: Iopamidol-370 76% 500 ML 1 ML ONE
[2020-07-28 13:45] LABS: #Lymphocytes 1.7 thou/uL (1.20-3.40); #Monocytes 0.5 thou/uL (0.11-0.59); #Neutrophils 12.6 thou/uL (1.40-6.50); %Basophils 0.1 % (0.0-1.0); %Eosinophils 0.3 % (0.0-10.0); %Lymphocytes 11.4 % (21.0-51.0); %Monocytes 3.2 % (0.0-10.0); %Neutrophils 85.1 % (42.0-75.0); Hemoglobin 14.1 g/dL (12.0-16.0); Mean Corpuscular HGB CONC 34.2 g/dL (32.0-36.0); Mean Corpuscular Hemoglobin 31.4 pg (27.0-31.0); Mean Corpuscular Volume 91.8 fL (78.0-98.0); Mean Platelet Volume 8.6 fL (7.4-10.4); Platelet Count 170 thou/uL (130-400); RBC Distribution Width 11.6 % (11.5-14.5); White Blood Cell (WBC) Count 14.8 thou/uL (4.8-10.8)
[2020-07-28 14:19] LABS: ALT (SGPT) 24 U/L (8-55); AST (SGOT) 28 U/L (5-34); Albumin 4.3 g/dL (3.4-4.8); Alkaline Phosphatase 85 U/L (40-110); Anion Gap 14 mmol/L (10-20); BUN (Urea Nitrogen) 34 mg/dL (9.8-20.1); Bilirubin, Total 0.4 mg/dL (0.2-1.2); Calc. Creatinine Clearance 0 mL/min (70-130); Calcium 9.5 mg/dL (7.8-10.44); Carbon Dioxide 23 mmol/L (23-31); Chloride 104 mmol/L (98-107); Globulin 3.4 g/dL (2.4-3.5); Glucose 112 mg/dL (83-110); Potassium 4.2 mmol/L (3.5-5.1); Protein, Total 7.7 g/dL (6.0-8.3); Sodium 137 mmol/L (136-145)
[2020-07-28] MEDS ORDERED: Ondansetron PF 4 MG/2 ML Vial ONE (14:21)
[2020-07-28] MEDS ORDERED: Morphine 4 MG/ML VIAL ONE (14:21)
[2020-07-28] MEDS ORDERED: methylPREDNISolone Sod Succ 40 MG VIAL ONE (14:34)
[2020-07-28] MEDS ORDERED: Famotidine/PF 20 mg/2ml Vial ONE (14:34)
[2020-07-28] MEDS ORDERED: diphenhydrAMINE 50 MG/ML VIAL ONE (14:34)
[2020-07-28 14:58] LABS: Lipase 6338 U/L (8-78)
[2020-07-28 15:08] LABS: Bilirubin Negative (Negative); Blood, Urine Negative (Negative); Clarity Clear (Clear); Glucose, Urine (Dipstick) Normal (Negative); Ketone, Urine Negative (Negative); Leukocyte Negative Leu/uL (Negative); Nitrite Negative (Negative); Protein, Urine (Dipstick) Negative (Neg-Trace); Urobilinogen Normal mg/dL (Less than 2)
--- NOTE | 2020-07-28 16:20 | CT ---
CT ABDOMEN AND PELVIS WITH IV CONTRAST: 07/28/20 HISTORY: Epigastric pain. COMPARISON: 11/22/19 and 06/05/19. There are dependent changes in the lung bases. The patient is post cholecystectomy with stable promi nence of the biliary tract. There is peripancreatic inflammatory change with a tiny amount of fluid i n the anterior pararenal space. No portal splenic thrombosis is seen. No abnormally loculated fluid c ollection is seen to suggest pseudocyst. The spleen, adrenal glands and right kidney are normal. A s mall cyst in the left kidney is again seen. No free air or lymphadenopathy is noted in the abdomen or pelvis. The small bowel loops are not abnormally dilated. The patient is post hysterectomy. There ar e vascular calcifications without evidence of aneurysmal dilatation of the abdominal aorta. There are degenerative changes and postop changes in the spine. IMPRESSION: Findings are suspicious for pancreatitis. POS: MAHIN
[2020-07-28] MEDS ORDERED: Ondansetron ODT 4 MG TAB PO PRN (18:08)
[2020-07-28] MEDS ORDERED: Acetaminophen 650 MG Suppository PR PRN (18:08)
[2020-07-28] MEDS ORDERED: Morphine 2 MG/ML VIAL SLOW IVP PRN (18:11)
[2020-07-28] MEDS ORDERED: Melatonin 3 MG TAB PO PRN (18:12)
--- NOTE | 2020-07-28 18:19 | PDOC.HHP ---
Hospitalist HPI - History of Present Illness abdominal pain History of Present Illness: Ms. Moyer is a 80-year-old female with past medical history of recurrent biliary pancreatitis, hypertension, hyperlipidemia, BPPV, hypothyroidism, status post aortic valve replacement who presents to the emergency room for abdominal pain. Patient reports that over the past 2 days she has had ongoing diarrhea with nausea. Morning prior to admission patient developed severe epigastric abdominal pain which she describes as cramping and severe. The pain does not radiate, and is intermittent. Patient has unable to tolerate food or liquids p.o. She does report a history of pancreatitis and states that this feels like prior episodes. She denies any history of alcohol use and states she is a Christian. She did endorse eating [place]uvian food a few days prior to her onset of diarrheal symptoms. She denies any chest pain, shortness of breath. She denies any melena, hematochezia, hematemesis. On review of patient's medical records, she had an ERCP with sphincterotomy in November [address] Kelsey, and she had a cholecystectomy approximately 30 years ago. Emergency room initial vital signs 147/82, 65, 18, 98.0, 100% on room air. CT abdomen showed peripancreatic fluid and inflammatory changes of the pancreas wi th no evidence for a pseudocyst or necrosis. Lipase significantly elevated at 6338. T bili 0.4. AST/ALT 28/24. BUN/CR 34/1.32. Sodium 137, potassium 4.2. Glucose 112. H/H 14.1/41.4. WBC 14.8. Platelets 170. In emergency room patient received Solu-Medrol and Benadryl prior to her CT scan as she has a IV contrast allergy, as well as Pepcid, morphine, Zofran, 1 L of normal saline. Patient admitted to hospitalist service for further work-up and management. Hospitalist ROS - Review of Systems Constitutional: reports: malaise. denies: fever, chills, sweats, weakness, other Eyes: denies: pain, vision change, conjunctivae inflammation, eyelid inflammation, redness, other ENT: denies: ear pain, ear discharge, nose pain, nose discharge, nose congestion, mouth pain, mouth swelling, throat pain, throat swelling, other Respiratory: denies: cough, dry, shortness of breath, hemoptysis, SOB with excertion, pleuritic pain, sputum, wheezing, other Cardiovascular: denies: chest pain, palpitations, orthopnea, paroxysmal noc. d yspnea, edema, light headedness, other Gastrointestinal: reports: nausea, vomiting, abdominal pain, diarrhea. denies: constipation, melena, hematochezia, other Genitourinary: denies: dysuria, frequency, incontinence, hematuria, retention, other Musculoskeletal: denies: neck pain, shoulder pain, arm pain, back pain, hand pa in, leg pain, foot pain, other Skin: denies: rash, lesions, niecy, bruising, other Neurological: denies: weakness, numbness, incoordination, change in speech, confusion, seizures, other - Medication Medications: New medications include Amlodipine Hydralazine Metoprolol Cater Furosemide Levothyroxine Statin, patient unsure what specific statin she is on Allergies to IV contrast dye, penicillin, lactose. IV contrast dye and penicillin results in a rash. Hospitalist History - Past Medical History Other Medical History: Past medical history Recurrent biliary pancreatitis Hypertension Hyperlipidemia BPPV Hypothyroidism Status post AVR - Past Surgical History Other Surgical History: Past surgical history includes Status post aortic valve replacement in November 2019, follows with Dr. Sullivan of [facility] Cholecystectomy Appendectomy Hysterectomy - Family History Other Family History: Patient reports family history significant in her father who had alcohol induced pancreatitis no family history of GI cancers that she is aware of. - Social History Smoking Status: Never smoker Alcohol: reports: None Drugs: reports: none Living Situation: With Family Activity level: independent ambulation Other Social History: Patient lives at home with her who is her MDM - Exam General Appearance: NAD, awake alert Eye: PERRL, anicteric sclera ENT: normocephalic atraumatic, no oropharyngeal lesions, dry oral mucosa Neck: supple, symmetric, no JVD, no thyromegaly, no lymphadenopathy, no carotid bruit Heart: no gallops, no rubs, normal peripheral pulses, murmur present Respiratory: CTAB, no wheezes, no rales, no ronchi, normal chest expansion, no tachypnea, normal percussion Gastrointestinal: soft, non-distended, normal bowel sounds, no palpable masses, tender to palpation, voluntary guarding Extremities: no cyanosis, no clubbing, no edema Skin: normal turgor, no lesions, no rashes Neurological: cranial nerve grossly intact, normal sensation to touch, no weakness, no focal deficits, no new deficit Musculoskeletal: normal tone, normal strength, no muscle wasting Psychiatric: normal affect, normal behavior, A&O x 3 Hospitalist Results - Labs Result Diagrams: 07/29/20 05:35 07/29/20 05:35 Lab results: WBC 14.8 thou/uL (4.8-10.8) H 07/28/20 13:37 Hgb 14.1 g/dL (12.0-16.0) 07/28/20 13:37 Hct 41.4 % (36.0-47.0) 07/28/20 13:37 MCV 91.8 fL (78.0-98.0) 07/28/20 13:37 Plt Count 170 thou/uL (130-400) 07/28/20 13:37 Neutrophils % 85.1 % (42.0-75.0) H 07/28/20 13:37 Sodium 137 mmol/L (136-145) 07/28/20 13:37 Potassium 4.2 mmol/L (3.5-5.1) 07/28/20 13:37 Chloride 104 mmol/L (98-107) 07/28/20 13:37 Carbon Dioxide 23 mmol/L (23-31) 07/28/20 13:37 BUN 34 mg/dL (9.8-20.1) H 07/28/20 13:37 Creatinine 1.32 mg/dL (0.6-1.1) H 07/28/20 13:37 Glucose 112 mg/dL (83-110) H 07/28/20 13:37 Calcium 9.5 mg/dL (7.8-10.44) 07/28/20 13:37 Total Bilirubin 0.4 mg/dL (0.2-1.2) 07/28/20 13:37 AST 28 U/L (5-34) 07/28/20 13:37 ALT 24 U/L (8-55) 07/28/20 13:37 Alkaline Phosphatase 85 U/L (40-110) 07/28/20 13:37 Serum Total Protein 7.7 g/dL (6.0-8.3) 07/28/20 13:37 Albumin 4.3 g/dL (3.4-4.8) 07/28/20 13:37 Lipase 6338 U/L (8-78) H 07/28/20 13:37 Urine Ketones Negative mg/dL (Negative) 07/28/20 14:45 Urine Blood Negative (Negative) 07/28/20 14:45 Urine Nitrite Negative (Negative) 07/28/20 14:45 Ur Leukocyte Esterase Negative Gumaro/uL (Negative) 07/28/20 14:45 Hospitalist H&P A/P - Plan Plan: 80-year-old female with past medical history of hypertension, hyperlipidemia, BPPV, hypothyroidism, status post AVR, recurrent biliary pancreatitis presents to emergency room on 07/28/2020 for abdominal pain associated with diarrhea, found to have acute pancreatitis with elevated lipase and findings pancreatitis on CT scan. Acute on chronic pancreatitis Patient presented with 2 days of diarrhea and abdominal pain found to have acute on chronic pancreatitis with a lipase elevated to 6338, and CT abdomen which showed peripancreatic fluid and inflammatory changes the pancreas, with no pseudocyst and no necrosis. Patient underwent a ERCP with sphincterotomy on 11/24/[address] Kelsey. She denies any alcohol use. T bili 0.4, AST/ALT 28 /24. Will start patient on aggressive IV fluids, pain management, bowel rest. Plan IV fluids at 200 mL/h Pain control with morphine N.p.o., ice chips, will advance to clears in a.m. Right upper quadrant ultrasound IgG 134, triglyceride level Stool studies Consider GI consult Acute kidney injury Patient with acute kidney injury with creatinine elevated to 1.32. BUN 34. Likely secondary to GI losses and decreased p.o. intake. Will administer IV fluids and continue to monitor. Plan IV fluids Trend kidney function Avoid nephrotoxic agents were possible Renal dosing as appropriate Leukocytosis Patient with mild leukocytosis to 14.8. Likely reactive versus hemoconcentration in setting of dehydration. Patient is afebrile and has no other signs of infection. We will continue to closely monitor. Plan Trend WBC, fever curve Stat lactic acid Continue to monitor Hypertension History of hypertension on home amlodipine and hydralazine. Will hold home antihypertensives in setting of pancreatitis. Hyperlipidemia We will continue home statin once dosage confirmed Hypothyroidism We will continue home levothyroxine once dosages confirmed DVT prophylaxisHeparin SQ Full codeMDM is patient's Case discussed with attending physician, Dr. Riley.
[2020-07-28 19:08] LABS: Lactic Acid 0.6 mmol/L (0.5-2.2)
[2020-07-28] MEDS ORDERED: Acetaminophen 325 MG TAB ONE (19:10)
[2020-07-28 19:12] LABS: Magnesium 2.1 mg/dL (1.6-2.6)
[2020-07-28] MEDS: Morphine 4 MG/ML VIAL SLOW IVP PRN (20:33)
[2020-07-28] MEDS: Sodium Chloride 0.9% 1,000 ML IV SCH (20:33)
[2020-07-28] MEDS: Heparin 5,000 UNITS/ML VIAL SC SCH (20:34)
[2020-07-28 21:44] VITALS: BMI 25.2
[2020-07-29] MEDS: Ondansetron PF 4 MG/2 ML Vial IVP PRN (01:20)
[2020-07-29] MEDS: Sodium Chloride 0.9% 1,000 ML IV SCH ×2 (01:24→08:34)
[2020-07-29 02:28] LABS: SARS-CoV-2 MS2 Positive; SARS-CoV-2 N Gene Negative; SARS-CoV-2 S Gene Negative; SARS-CoV-2 by NAA Not Detected (NotDetected); SARS-CoV-2 orf1ab Negative
[2020-07-29] MEDS: Morphine 4 MG/ML VIAL SLOW IVP PRN ×2 (05:02→08:34)
[2020-07-29 05:43] LABS: #Lymphocytes 1.4 thou/uL (1.20-3.40); #Monocytes 0.9 thou/uL (0.11-0.59); #Neutrophils 9.8 thou/uL (1.40-6.50); %Basophils 0.3 % (0.0-1.0); %Eosinophils 0.2 % (0.0-10.0); %Lymphocytes 11.7 % (21.0-51.0); %Monocytes 7.3 % (0.0-10.0); %Neutrophils 80.5 % (42.0-75.0); Hemoglobin 12.9 g/dL (12.0-16.0); Mean Corpuscular HGB CONC 33.2 g/dL (32.0-36.0); Mean Corpuscular Hemoglobin 30.6 pg (27.0-31.0); Mean Corpuscular Volume 92.2 fL (78.0-98.0); Mean Platelet Volume 8.8 fL (7.4-10.4); Platelet Count 135 thou/uL (130-400); RBC Distribution Width 11.6 % (11.5-14.5); Red Blood Cell (RBC) Count 4.22 mill/uL (4.20-5.40); White Blood Cell (WBC) Count 12.2 thou/uL (4.8-10.8)
[2020-07-29 06:08] LABS: ALT (SGPT) 19 U/L (8-55); AST (SGOT) 23 U/L (5-34); Albumin 3.7 g/dL (3.4-4.8); Alkaline Phosphatase 73 U/L (40-110); Anion Gap 12 mmol/L (10-20); BUN (Urea Nitrogen) 23 mg/dL (9.8-20.1); Bilirubin, Total 0.2 mg/dL (0.2-1.2); Calc. Creatinine Clearance 64 mL/min (70-130); Calcium 8.5 mg/dL (7.8-10.44); Carbon Dioxide 20 mmol/L (23-31); Chloride 110 mmol/L (98-107); Globulin 3.4 g/dL (2.4-3.5); Glucose 129 mg/dL (83-110); Protein, Total 7.1 g/dL (6.0-8.3); Sodium 138 mmol/L (136-145)
[2020-07-29] MEDS: Heparin 5,000 UNITS/ML VIAL SC SCH ×2 (08:34→20:01)
[2020-07-29] MEDS ORDERED: Enoxaparin Sodium 40 MG/0.4 ML SYRINGE SC SCH (09:00)
--- NOTE | 2020-07-29 09:04 | ULT ---
ULTRASOUND ABDOMEN LIMITED: (RIGHT UPPER QUADRANT) DATE: 07/29/2020 HISTORY: 80-year-old female with pancreatitis FINDINGS: Mild diffuse intrahepatic biliary ductal dilation. Dilation of the pancreatic duct to caliber of 4 mm. Gallbladder surgically absent Pancreatic tail and much of head obscured by shadowing from bowel gas. Nonspecific sonographic appearance of pancreatic body. Hepatic echogenicity within normal limits. No hydronephrosis of right kidney. Common duct caliber is dilated to 8 mm, probably due to reservoir effect due to status post cholecyst ectomy. IMPRESSION: 1) diffuse dilation of pancreatic duct. 2) diffuse dilation of intrahepatic biliary ducts. 3) status post cholecystectomy
[2020-07-29] MEDS ORDERED: Morphine 4 MG/ML VIAL SLOW IVP PRN (11:07)
--- NOTE | 2020-07-29 11:09 | PDOC.HOSPP ---
- Subjective Encounter Date: 07/29/20 (f/u pancreatitis) Encounter Time: 11:08 Subjective: 80 y/o female admitted for acute pancreatitis with a history of the same. Pt c/o pain 02/27 - no change compared to admission. She denies n/v - Objective Vital Signs & Weight: Vital Signs (12 hours) Temp Pulse Resp BP Pulse Ox 07/29/20 07:24 97.6 F 69 20 145/74 H 95 07/29/20 04:46 97.6 F 92 20 162/82 H 95 07/28/20 23:41 95 07/28/20 23:27 97.9 F 74 19 128/74 95 Weight Weight 176 lb 5.917 oz I&O: 07/28/20 07/29/20 07/30/20 06:59 06:59 06:59 Intake Total 2600 Output Total 700 Balance 1900 Result Diagrams: 07/29/20 05:35 07/29/20 05:35 Hospitalist ROS - Medication Medications: Active Medications Generic Name Dose Route Start Last Admin Trade Name Freq PRN Reason Stop Dose Admin Heparin Sodium (Porcine) 5,000 units 07/28/20 21:00 07/29/20 08:34 Heparin 5,000 Units/Ml Vial SC 5,000 units BID SHAWANDA Administration Ondansetron HCl 4 mg 07/28/20 18:08 07/29/20 01:20 Ondansetron Pf 4 Mg/2 Ml Vial IVP 4 mg Q6H PRN Administration Nausea/Vomiting - Exam General Appearance: NAD Heart - other findings: 1-2/6 CHUY Respiratory: CTAB, no wheezes, no rales, no ronchi Gastrointestinal: soft, non-distended Gastrointestinal - other findings: ttp to light palpation, no palpable abnormality Extremities: no cyanosis, no clubbing, no edema Musculoskeletal: normal tone Psychiatric: normal affect Hosp A/P (1) Pancreatitis Code(s): K85.90 - ACUTE PANCREATITIS WITHOUT NECROSIS OR INFECTION, UNSP Status: Acute (2) JAYCOB (acute kidney injury) Code(s): N17.9 - ACUTE KIDNEY FAILURE, UNSPECIFIED Status: Resolved (3) Hypertension Code(s): I10 - ESSENTIAL (PRIMARY) HYPERTENSION Status: Chronic Qualifiers: Hypertension type: essential hypertension Qualified Code(s): I10 - Essential (primary) hypertension (4) Dyslipidemia Code(s): E78.5 - HYPERLIPIDEMIA, UNSPECIFIED Status: Chronic (5) Hyperchloremia Code(s): E87.8 - OTH DISORDERS OF ELECTROLYTE AND FLUID BALANCE, NEC Status: Acute (6) Hypothyroid Code(s): E03.9 - HYPOTHYROIDISM, UNSPECIFIED Status: Chronic Qualifiers: Hypothyroidism type: unspecified Qualified Code(s): E03.9 - Hypothyroidism, unspecified - Plan Pancreatitis- Change IVF to 1/2 NS due to elevated chloride change morphine to q3h prn GI consult for abnormal ultrasound - consideration of ERCP Hold home meds for now Monitor bp's, trend WBC count and metabolic panel dvt prophy - scd's, hold pharmacologic dvt prophy in case procedure is needed gi prophy - will start famotidine code status full reviewed plan of care with patient, no questions or further needs at end of eval
[2020-07-29] MEDS: Morphine 2 MG/ML VIAL SLOW IVP PRN ×2 (11:54→17:46)
[2020-07-29] MEDS: 1/2 NS w/KCL 20 mEq 1,000 ML IV SCH ×3 (11:55→20:01)
[2020-07-29] MEDS: diphenhydrAMINE 50 MG/ML VIAL IVP PRN ×2 (12:22→18:48)
--- NOTE | 2020-07-29 15:31 | CON ---
DATE OF CONSULTATION: 07/29/2020 REQUESTING PHYSICIAN: Tabitha Anderson MD REASON FOR CONSULTATION: Acute recurrent pancreatitis. HISTORY OF PRESENT ILLNESS: Jacinta Moyer is a very pleasant 80-year-old woman who was admitted to the hospital yesterday with recurrent acute pancreatitis. She basically had a couple of days of diarrhea after eating some Filipino food, but then had the acute onset of epigastric pain yesterday morning, which became quite severe. There was some minimal nausea, but no vomiting. Upon presentation, she was found to have significant lipase elevation, though normal LFTs and normal triglycerides. She has remained hemodynamically stable. She had a CT scan which demonstrated uncomplicated changes of pancreatitis and abdominal ultrasound, which demonstrates some mild pancreatic ductal dilation as well as common bile duct of 8 mm today with analgesia. She is feeling a little bit better, but epigastric abdominal pain persists. She has remained n.p.o. She has been resuscitated appropriately. Notably, this is at least the patient's 4th episode of pancreatitis. She evidently had prior hospitalizations in [place] and in [facility] in the past couple of years. She was hospitalized here in November 2019 and at that time, actually, was found to have LFT elevation along with the pancreatitis. There had been some suspicion for sphincter of Oddi dysfunction. She underwent ERCP with biliary sphincterotomy at that time, performed by Dr. Kelsey, was found to have a clear bile duct, and a generous sphincterotomy was performed, and her symptoms all resolved at that time. The patient says she did really well since November of last year until this current attack. Notably, again LFTs this admission are normal. REVIEW OF SYSTEMS: Full review of systems including constitutional, head, eyes, ears, nose, throat, GI, , cardiovascular, respiratory, musculoskeletal, neurologic systems is negative except as noted in the HPI. PAST MEDICAL HISTORY: Hypertension, hyperlipidemia, vertigo, hypothyroidism, aortic stenosis, status post aortic valve replacement, recurrent pancreatitis, sphincter of Oddi dysfunction, status post biliary sphincterotomy in November 2019, cholecystectomy about 30 years ago, recurrent biliary pancreatitis, hysterectomy, and appendectomy. ALLERGIES: IV CONTRAST DYE, PENICILLIN, AND LACTOSE. OUTPATIENT MEDICATIONS: 1. Amlodipine. 2. Hydralazine. 3. Metoprolol. 4. Furosemide. 5. Levothyroxine. 6. Statin. FAMILY HISTORY: Negative for GI malignancy. SOCIAL HISTORY: No smoking, alcohol, or drug use. PHYSICAL EXAMINATION: VITAL SIGNS: Temperature 97.4, pulse 69, blood pressure 142/60, and 94% oxygen saturation on room air. GENERAL: A 80-year-old woman, lying in bed comfortably, in no distress. SKIN: No jaundice. No rashes were palpable. HEENT: Eyes, no scleral icterus. Extraocular movements intact. ENT, mucous membranes moist. No oral lesions. LYMPH: No submandibular or supraclavicular lymphadenopathy. THYROID: Nontender to palpation. HEART: Regular rate and rhythm. No murmur appreciated. LUNGS: Clear to auscultation bilaterally. ABDOMEN: Nondistended. Bowel sounds hypoactive, but present. Soft. Tender to palpation throughout the abdomen, but no guarding or rebound tenderness. EXTREMITIES: No peripheral edema. VESSELS: Radial pulses 2+ bilaterally. NEUROLOGIC: Cranial nerves 2 through 12 intact bilaterally. No focal deficits. LABORATORY STUDIES: WBC 12.2, hemoglobin 12.9, hematocrit 38.9, and platelets 135. Sodium 138, potassium 4.0, BUN 23, creatinine 0.90, and glucose 129. Lactic acid only 0.6. LFTs all normal with total bilirubin 0.2, alkaline phosphatase 73, AST 23, ALT 19, triglycerides only 129. Lipase was elevated to 6338 on admission. Urinalysis negative. COVID PCR is negative. IMAGING STUDIES: Right upper quadrant ultrasound shows some mild diffuse intrahepatic biliary dilation. The common bile duct is 8 mm, which is thought to be due to reservoir effect from prior cholecystectomy. Gallbladder is surgically absent. Pancreatic duct is [address] of the abdomen and pelvis shows stable prominence of the biliary tract. There is peripancreatic inflammatory change with a tiny amount of fluid in the anterior pararenal space. No evidence for portal or splenic thrombosis. No fluid collection. Normal small bowel loops. ASSESSMENT AND PLAN: 1. Acute recurrent pancreatitis. 2. History of sphincter of Oddi dysfunction, status post biliary sphincterotomy in November 2019. 3. Pancreatic duct and mild stable biliary dilation. The imaging findings of biliary and pancreatic ductal dilation are more chronic here. There was some concern for sphincter of Oddi dysfunction in the past. Because on prior presentation, she did have LFT elevation, but LFTs are normal at this time and in any rate, she has already undergone biliary sphincterotomy last year with normal LFTs at this time, I see no indication to attempt repeat ERCP. Consider the possibility of distal pancreatic duct, stricture, or possibly pancreatic duct stone, which might not be detected on current imaging. At this time, she is being treated appropriately with supportive care, IV fluids, n.p.o. status. Continue with current supportive care, advance diet as tolerated if she is doing well tomorrow. But with regard to any further workup or imaging, I would recommend that she follow up with Dr. Nam in the outpatient clinic a couple of weeks after discharge, to consider possible referral to a tertiary center for upper endoscopic ultrasound. Thank you for the consultation. Please call back anytime with questions or concerns. Job ID: [id number] MTDD
[2020-07-29] MEDS: Famotidine/PF 20 mg/2ml Vial SLOW IVP SCH (20:01)
[2020-07-30 05:47] LABS: #Eosinphils 0.1 thou/uL (0.0-0.7); #Monocytes 1.9 thou/uL (0.11-0.59); #Neutrophils 13.4 thou/uL (1.40-6.50); %Basophils 0.2 % (0.0-1.0); %Eosinophils 0.3 % (0.0-10.0); %Lymphocytes 11.5 % (21.0-51.0); %Monocytes 11.1 % (0.0-10.0); %Neutrophils 76.9 % (42.0-75.0); Mean Corpuscular HGB CONC 33.9 g/dL (32.0-36.0); Mean Corpuscular Hemoglobin 31.2 pg (27.0-31.0); Mean Corpuscular Volume 92.2 fL (78.0-98.0); Mean Platelet Volume 8.7 fL (7.4-10.4); Platelet Count 117 thou/uL (130-400); RBC Distribution Width 11.6 % (11.5-14.5); Red Blood Cell (RBC) Count 3.85 mill/uL (4.20-5.40); White Blood Cell (WBC) Count 17.4 thou/uL (4.8-10.8)
[2020-07-30 06:07] LABS: ALT (SGPT) 14 U/L (8-55); AST (SGOT) 19 U/L (5-34); Albumin 3.4 g/dL (3.4-4.8); Alkaline Phosphatase 65 U/L (40-110); Anion Gap 12 mmol/L (10-20); BUN (Urea Nitrogen) 14 mg/dL (9.8-20.1); Bilirubin, Total 0.3 mg/dL (0.2-1.2); Calc. Creatinine Clearance 69 mL/min (70-130); Calcium 8.4 mg/dL (7.8-10.44); Carbon Dioxide 20 mmol/L (23-31); Chloride 107 mmol/L (98-107); Globulin 2.9 g/dL (2.4-3.5); Glucose 82 mg/dL (83-110); Potassium 4.1 mmol/L (3.5-5.1); Protein, Total 6.3 g/dL (6.0-8.3); Sodium 135 mmol/L (136-145)
[2020-07-30] MEDS: Famotidine/PF 20 mg/2ml Vial SLOW IVP SCH (08:34)
[2020-07-30] MEDS: Heparin 5,000 UNITS/ML VIAL SC SCH (08:35)
[2020-07-30] MEDS ORDERED: 1/2 NS w/KCL 20 mEq 1,000 ML IV SCH (09:16)
[2020-07-30] MEDS ORDERED: Morphine 2 MG/ML VIAL SLOW IVP PRN (09:17)
--- NOTE | 2020-07-30 09:21 | PDOC.HOSPP ---
- Subjective Encounter Date: 07/30/20 (f/u pancreatitis) Encounter Time: 09:17 Subjective: Pt admitted for pancreatitis. Today she c/o feeling confused this morning. She is able to answer questions appropriately and aware that she is in the hospital. RN notes that urine is cloudy and odor has changed. Pt denies any abd pain unless she pushes on her abdomen. - Objective Vital Signs & Weight: Vital Signs (12 hours) Temp Pulse Resp BP Pulse Ox 07/30/20 08:00 97.7 F 77 20 131/73 92 L 07/30/20 03:47 93 L 07/30/20 03:35 98.6 F 72 19 142/79 H 93 L 07/29/20 23:56 98.4 F 73 18 152/72 H 93 L Weight Weight 176 lb 5.917 oz I&O: 07/29/20 07/30/20 07/31/20 06:59 06:59 06:59 Intake Total 2600 1900 Output Total 700 1450 Balance 1900 450 Result Diagrams: 07/30/20 05:30 07/30/20 05:30 Hospitalist ROS - Medication Medications: Active Medications Generic Name Dose Route Start Last Admin Trade Name Freq PRN Reason Stop Dose Admin Diphenhydramine HCl 12.5 mg 07/29/20 11:06 07/29/20 18:48 Diphenhydramine 50 Mg/Ml Vial IVP 12.5 mg Q6H PRN Administration Itching Ondansetron HCl 4 mg 07/28/20 18:08 07/29/20 01:20 Ondansetron Pf 4 Mg/2 Ml Vial IVP 4 mg Q6H PRN Administration Nausea/Vomiting - Exam General Appearance: NAD Heart - other findings: 2/6 CHUY most audible at apex Respiratory: CTAB, no wheezes, no rales, no ronchi Gastrointestinal: soft, non-distended Gastrointestinal - other findings: ttp throughout - mild, no rebound/guarding, hypoactive bowel sounds Extremities: no cyanosis, no clubbing, no edema Psychiatric: normal affect Hosp A/P (1) Pancreatitis Code(s): K85.90 - ACUTE PANCREATITIS WITHOUT NECROSIS OR INFECTION, UNSP Status: Acute (2) JAYCOB (acute kidney injury) Code(s): N17.9 - ACUTE KIDNEY FAILURE, UNSPECIFIED Status: Resolved (3) Hypertension Code(s): I10 - ESSENTIAL (PRIMARY) HYPERTENSION Status: Chronic Qualifiers: Hypertension type: essential hypertension Qualified Code(s): I10 - Essential (primary) hypertension (4) Dyslipidemia Code(s): E78.5 - HYPERLIPIDEMIA, UNSPECIFIED Status: Chronic (5) Hyperchloremia Code(s): E87.8 - OTH DISORDERS OF ELECTROLYTE AND FLUID BALANCE, NEC Status: Acute (6) Hypothyroid Code(s): E03.9 - HYPOTHYROIDISM, UNSPECIFIED Status: Chronic Qualifiers: Hypothyroidism type: unspecified Qualified Code(s): E03.9 - Hypothyroidism, unspecified - Plan Pancreatitis- Appreciate GI consult - no indication for procedure - pain free - advance diet to clear liquids - lower IVF rate - trend WBC count Change in urine with worsening leukocytosis - check UA with reflex culture - hold antibiotics for now Requested that RN verify home medications Confusion - likely secondary to illness, hospitalization, and pain medications - monitor Thrombocytopenia - mild. Will d/c heparin dvt prophy - scd's gi prophy - advancing diet - not indicated code status full reviewed plan of care with patient and RN, no questions or further needs at end of eval Addendum - change IVF back to normal saline due to very mild hyponatremia - recheck in AM.
--- NOTE | 2020-07-30 13:56 | PRG ---
DATE OF SERVICE: 07/30/2020 SUBJECTIVE: Ms. Moyer feels a lot better today. Abdominal discomfort has improved, though she still has tenderness to palpation in the epigastrium and some cramping discomfort in the lower abdomen. She is tolerating a clear liquid diet this morning. Her only complaint is diarrhea, having had one very large liquid bowel movement this morning. Stool studies have been ordered and are pending. OBJECTIVE: VITAL SIGNS: Temperature 97.8, pulse 75, blood pressure 154/75, and 99% oxygen saturation on room air. GENERAL: No acute distress, lying in bed comfortably. HEART: Regular rate and rhythm. LUNGS: Clear to auscultation bilaterally. ABDOMEN: Bowel sounds are active. Soft. Some tenderness to palpation in the epigastrium, but no guarding or rebound tenderness. EXTREMITIES: No peripheral edema. LABORATORY STUDIES: WBC came up to 17.4, hemoglobin 12.0, platelets 117. Sodium 135, potassium 4.1, BUN down to 14, creatinine down to 0.84. LFTs all remain normal. Urinalysis negative. COVID PCR negative. ASSESSMENT AND PLAN: 1. Acute recurrent pancreatitis, uncomplicated. This appears to be clinically improving. She is tolerating clear liquids now. Laboratory parameters all remain favorable. Stick with the plan to follow up with Dr. Nam in the outpatient clinic in a couple of weeks after discharge, to consider possible referral to a tertiary center for upper endoscopic ultrasound. 2. Diarrhea, acute. This is her primary complaint today. Stool studies including Clostridium difficile have been ordered, follow up those studies. Diet can be advanced further as tolerated. Please call back anytime with questions or concerns. Job ID: [id number]
[2020-07-30] MEDS: Ondansetron PF 4 MG/2 ML Vial IVP PRN (15:04)
[2020-07-30 15:51] LABS: Bilirubin Negative (Negative); Blood, Urine Negative (Negative); Clarity Clear (Clear); Glucose, Urine (Dipstick) Normal (Negative); Ketone, Urine 20 mg/dL (Negative); Leukocyte Negative Leu/uL (Negative); Nitrite Negative (Negative); Protein, Urine (Dipstick) Negative (Neg-Trace); RBC/HPF 0-3 HPF (0-3); Specific Gravity, Urine 1.008 (1.002-1.036); Squamous Epithelial None Seen HPF (0-3); Urobilinogen Normal mg/dL (Less than 2); WBC/HPF 0-3 HPF (0-3); pH, Urine 5.5 (5.0-9.0)
[2020-07-30 15:52] LABS: Bacteria/HPF Rare-Few HPF (None Seen)
[2020-07-30 15:53] LABS: Urine Culture Reflex No No
[2020-07-30] MEDS: Sodium Chloride 0.9% 1,000 ML IV SCH (18:36)
[2020-07-30] MEDS: Acetaminophen 325 MG TAB PO PRN (19:00)
[2020-07-31] MEDS: Acetaminophen 325 MG TAB PO PRN ×2 (01:37→14:26)
[2020-07-31 05:49] LABS: #Eosinphils 0.2 thou/uL (0.0-0.7); #Lymphocytes 1.7 thou/uL (1.20-3.40); #Monocytes 1.6 thou/uL (0.11-0.59); %Basophils 0.2 % (0.0-1.0); %Eosinophils 1.6 % (0.0-10.0); %Lymphocytes 13.6 % (21.0-51.0); %Monocytes 12.8 % (0.0-10.0); %Neutrophils 71.8 % (42.0-75.0); Mean Corpuscular HGB CONC 34.1 g/dL (32.0-36.0); Mean Corpuscular Hemoglobin 31.2 pg (27.0-31.0); Mean Corpuscular Volume 91.6 fL (78.0-98.0); Mean Platelet Volume 8.9 fL (7.4-10.4); Platelet Count 121 thou/uL (130-400); RBC Distribution Width 11.5 % (11.5-14.5); Red Blood Cell (RBC) Count 3.83 mill/uL (4.20-5.40); White Blood Cell (WBC) Count 12.5 thou/uL (4.8-10.8)
[2020-07-31 06:21] LABS: ALT (SGPT) 12 U/L (8-55); AST (SGOT) 16 U/L (5-34); Albumin 3.3 g/dL (3.4-4.8); Alkaline Phosphatase 63 U/L (40-110); Anion Gap 11 mmol/L (10-20); BUN (Urea Nitrogen) 9 mg/dL (9.8-20.1); Bilirubin, Total 0.5 mg/dL (0.2-1.2); Calc. Creatinine Clearance 73 mL/min (70-130); Calcium 8.6 mg/dL (7.8-10.44); Carbon Dioxide 24 mmol/L (23-31); Chloride 109 mmol/L (98-107); Globulin 3.1 g/dL (2.4-3.5); Glucose 96 mg/dL (83-110); Potassium 3.5 mmol/L (3.5-5.1); Protein, Total 6.4 g/dL (6.0-8.3); Sodium 140 mmol/L (136-145)
[2020-07-31] MEDS ORDERED: traMADol HCl 50 MG TAB PO PRN (08:43)
--- NOTE | 2020-07-31 08:45 | PDOC.HOSPP ---
- Subjective Encounter Date: 07/31/20 (f/u pancreatitis) Encounter Time: 08:44 Subjective: Pt admitted for pancreatitis - improvement in pain and yesterday advanced to clear liquid diet. She reports pain overnight but feeling better this morning. No pain unless she pushes on abdomen. She states she still has some confusion - difficulty with having a conversation with this morning. No IV access currently - Objective Vital Signs & Weight: Vital Signs (12 hours) Temp Pulse Resp BP Pulse Ox 07/31/20 07:34 98.0 F 63 16 162/86 H 96 07/31/20 03:07 97.7 F 70 16 168/70 H 92 L 07/31/20 00:08 97.7 F 68 16 145/79 H 95 07/30/20 20:55 97.8 F 71 18 146/70 H 94 L Weight Weight 176 lb 5.917 oz I&O: 07/30/20 07/31/20 08/01/20 06:59 06:59 06:59 Intake Total 1900 2600 Output Total 1450 1550 Balance 450 1050 Result Diagrams: 07/31/20 05:38 07/31/20 05:38 Hospitalist ROS - Medication Medications: Active Medications Generic Name Dose Route Start Last Admin Trade Name Freq PRN Reason Stop Dose Admin Acetaminophen 650 mg 07/28/20 18:08 07/31/20 01:37 Acetaminophen 325 Mg Tab PO 650 mg Q4H PRN Administration Headache/Fever/Mild Pain (1-3) Diphenhydramine HCl 12.5 mg 07/29/20 11:06 07/29/20 18:48 Diphenhydramine 50 Mg/Ml Vial IVP 12.5 mg Q6H PRN Administration Itching Ondansetron HCl 4 mg 07/28/20 18:08 07/30/20 15:04 Ondansetron Pf 4 Mg/2 Ml Vial IVP 4 mg Q6H PRN Administration Nausea/Vomiting - Exam General Appearance: NAD Heart: RRR, no murmur Respiratory: CTAB, no wheezes, no rales, no ronchi Gastrointestinal: soft, non-distended, normal bowel sounds Gastrointestinal - other findings: mild ttp throughout - improved today Extremities: no cyanosis, no clubbing, no edema Psychiatric: normal affect Hosp A/P (1) Pancreatitis Code(s): K85.90 - ACUTE PANCREATITIS WITHOUT NECROSIS OR INFECTION, UNSP Status: Acute (2) JAYCOB (acute kidney injury) Code(s): N17.9 - ACUTE KIDNEY FAILURE, UNSPECIFIED Status: Resolved (3) Hypertension Code(s): I10 - ESSENTIAL (PRIMARY) HYPERTENSION Status: Chronic Qualifiers: Hypertension type: essential hypertension Qualified Code(s): I10 - Essential (primary) hypertension (4) Dyslipidemia Code(s): E78.5 - HYPERLIPIDEMIA, UNSPECIFIED Status: Chronic (5) Hyperchloremia Code(s): E87.8 - OTH DISORDERS OF ELECTROLYTE AND FLUID BALANCE, NEC Status: Acute (6) Hypothyroid Code(s): E03.9 - HYPOTHYROIDISM, UNSPECIFIED Status: Chronic Qualifiers: Hypothyroidism type: unspecified Qualified Code(s): E03.9 - Hypothyroidism, unspecified - Plan Pancreatitis- Appreciate GI consult - no indication for procedure - some pain overnight but overall improved - advance to full liquid diet - d/c IVF and monitor UOP - wbc count lower today - uncertain of why it was elevated yesterday - no indication for abx - add tramadol for another PO pain med option Change in urine with worsening leukocytosis - normal UA and leukocytosis improved - no treatment needed Requested that RN verify home medications Confusion - likely secondary to illness, hospitalization, and pain medications. We also need an accurate medication list to resume pt's home meds - this may be playing a role. Requested that RN contact the patient's pharmacy. Thrombocytopenia - mild and stable, f/u as an outpatient HTN - need home med list to resume Other chronic illness - need home med list pt/ot eval dvt prophy - scd's gi prophy - advancing diet - not indicated code status full reviewed plan of care with patient and RN, no questions or further needs at end of eval Addendum - [facility] pharmacy contacted this afternoon, medications reconcilled. Restarting paxil, amlodipine for now. Resume additional home meds tomorrow based on patient's response.
[2020-07-31] MEDS: Sodium Chloride 0.9% 1,000 ML IV SCH (09:36)
--- NOTE | 2020-07-31 10:14 | PRG ---
DATE OF SERVICE: 07/31/2020 SUBJECTIVE: Ms. Moyer is feeling a lot better. Her abdominal pain has significantly improved, now tender only to palpation. There has been no nausea or vomiting. Tolerating clear liquids. She had one soft to watery bowel movement over the course of the past day. OBJECTIVE: VITAL SIGNS: Temperature 98.0, pulse 63, blood pressure 162/86, 96% oxygen saturation on room air. GENERAL: No acute distress, sitting up in bed comfortably. HEART: Regular rate and rhythm. LUNGS: Clear to auscultation bilaterally. ABDOMEN: Bowel sounds active, soft, tender to palpation in the upper abdomen, but no guarding or rebound tenderness. EXTREMITIES: No peripheral edema. LABORATORY STUDIES: WBC down to 12.5, hemoglobin 12.0, platelets 121. Sodium 140, potassium 3.5, BUN 9, creatinine 0.79, total bilirubin 0.5, alkaline phosphatase 63, AST 16, ALT 12. ASSESSMENT/PLAN: Acute recurrent pancreatitis, clinically resolving, uncomplicated. Agree with advancing diet as tolerated. Laboratory parameters all remain favorable. Stick with the plan to follow up with Dr. Nam in the outpatient clinic in a couple of weeks after discharge, to consider possible referral to a tertiary center for upper endoscopic ultrasound. GI will sign off. Please call back anytime with questions or concerns. Job ID: [id number]
[2020-07-31] MEDS ORDERED: Preparation H Suppository PR PRN (11:28)
[2020-07-31] MEDS ORDERED: Amlodipine 5 MG TAB PO SCH (16:15)
[2020-07-31] MEDS ORDERED: PARoxetine 20 MG TAB PO SCH (16:15)
[2020-07-31 20:08] LABS: IgG Subclass 1 1101 mg/dL (248-810); IgG Subclass 2 162 mg/dL (130-555); IgG Subclass 3 48 mg/dL (15-102); Immunoglobulin - G (Sendout) 1444 mg/dL (586-1602)
--- NOTE | 2020-08-01 00:36 | PDOC.EVN ---
Event Note - Event Note Event Note: Patient with stool + c.diff toxin, will start po vancomycin.
[2020-08-01] MEDS ORDERED: Vancomycin HCl 25 MG/ML Oral PO SCH ×2 (01:00→06:00)
[2020-08-01] MEDS: Levothyroxine Sodium 75 MCG TAB PO SCH (05:30)
[2020-08-01 05:40] LABS: #Eosinphils 0.3 thou/uL (0.0-0.7); #Lymphocytes 1.6 thou/uL (1.20-3.40); #Monocytes 1.6 thou/uL (0.11-0.59); #Neutrophils 9.7 thou/uL (1.40-6.50); %Basophils 0.1 % (0.0-1.0); %Eosinophils 2.3 % (0.0-10.0); %Lymphocytes 12.1 % (21.0-51.0); %Monocytes 12.1 % (0.0-10.0); %Neutrophils 73.4 % (42.0-75.0); Hemoglobin 12.8 g/dL (12.0-16.0); Mean Corpuscular HGB CONC 34.4 g/dL (32.0-36.0); Mean Corpuscular Hemoglobin 31.4 pg (27.0-31.0); Mean Corpuscular Volume 91.3 fL (78.0-98.0); Mean Platelet Volume 9.3 fL (7.4-10.4); Platelet Count 146 thou/uL (130-400); RBC Distribution Width 11.5 % (11.5-14.5); Red Blood Cell (RBC) Count 4.07 mill/uL (4.20-5.40); White Blood Cell (WBC) Count 13.1 thou/uL (4.8-10.8)
[2020-08-01 06:03] LABS: ALT (SGPT) 12 U/L (8-55); AST (SGOT) 17 U/L (5-34); Albumin 3.5 g/dL (3.4-4.8); Alkaline Phosphatase 69 U/L (40-110); Anion Gap 11 mmol/L (10-20); BUN (Urea Nitrogen) 8 mg/dL (9.8-20.1); Bilirubin, Total 0.4 mg/dL (0.2-1.2); Calc. Creatinine Clearance 73 mL/min (70-130); Calcium 8.7 mg/dL (7.8-10.44); Carbon Dioxide 25 mmol/L (23-31); Chloride 104 mmol/L (98-107); Globulin 3.3 g/dL (2.4-3.5); Glucose 100 mg/dL (83-110); Potassium 3.3 mmol/L (3.5-5.1); Protein, Total 6.8 g/dL (6.0-8.3); Sodium 137 mmol/L (136-145)
[2020-08-01] MEDS: Amlodipine 5 MG TAB PO SCH (09:05)
[2020-08-01] MEDS: PARoxetine 20 MG TAB PO SCH (09:05)
[2020-08-01] MEDS ORDERED: Potassium Chloride 20 MEQ TAB PO SCH (09:45)
[2020-08-01] MEDS ORDERED: Electrolyte Replacement Protocol 1 EACH FS SCH (10:30)
[2020-08-01] MEDS ORDERED: Magnesium 2 GM/50 ML 2 GM in Premix Bag 1 BAG IVPB SCH (11:30)
[2020-08-01] MEDS: Vancomycin HCl 25 MG/ML Oral PO SCH ×3 (14:51→23:17)
[2020-08-01] MEDS: Saccharomyces boulardii 250 MG CAP PO SCH (20:00)
--- NOTE | 2020-08-01 22:45 | PDOC.HOSPP ---
- Subjective Encounter Date: 08/01/20 Encounter Time: 11:30 Subjective: Patient seen and examined for acute pancreatitis with C. difficile colitis. Diarrhea slowing down. Denies any nausea. Abdominal pain improving - Objective Vital Signs & Weight: Vital Signs (12 hours) Temp Pulse Resp BP BP Pulse Ox 08/01/20 19:32 97.9 F 62 17 150/52 H 97 08/01/20 16:01 97.7 F 57 L 16 167/78 H 97 08/01/20 11:40 97.6 F 83 16 136/80 96 Weight Weight 176 lb 5.917 oz I&O: 07/31/20 08/01/20 08/02/20 06:59 06:59 06:59 Intake Total 2600 2370 1150 Output Total 1550 800 Balance 1050 1570 1150 Result Diagrams: 08/01/20 05:08 08/01/20 05:08 Additional Labs: Abnormal Lab Results - Last 48 hrs 07/28/20 18:39: IgG Subclass 1 1101 H 07/31/20 05:38: Chloride 109 H, BUN 9 L, Albumin 3.3 L, Albumin/Globulin Ratio 1.1 L 07/31/20 05:38: WBC 12.5 H, RBC 3.83 L, Hct 35.1 L, MCH 31.2 H, Plt Count 121 L, Lymphocytes % 13.6 L, Monocytes % 12.8 H, Neutrophils # 9.0 H, Monocytes # 1.6 H 08/01/20 05:08: Potassium 3.3 L, BUN 8 L, Albumin/Globulin Ratio 1.1 L 08/01/20 05:08: WBC 13.1 H, RBC 4.07 L, MCH 31.4 H, Lymphocytes % 12.1 L, Monocytes % 12.1 H, Neutrophils # 9.7 H, Monocytes # 1.6 H Microbiology - Entire Visit 07/31/20 18:13 Stool Stool Culture - Preliminary 07/31/20 18:13 Stool Escherichia coli 0157 Culture - Final 07/31/20 18:13 Stool C. difficile GDH Antigen & Toxins - Final 07/31/20 18:13 Stool Clostridioides difficile Toxins A&B (PCR) - Final 07/31/20 18:13 Stool Campylobacter Antigen Assay - Final 07/31/20 18:13 Stool Shiga Toxin Test - Final Radiology Reviewed by me: Yes (CT abdomenpancreatitis) Hospitalist ROS - Review of Systems Respiratory: denies: cough, dry, shortness of breath, hemoptysis, SOB with excertion, pleuritic pain, sputum, wheezing, other Cardiovascular: denies: chest pain, palpitations, orthopnea, paroxysmal noc. dyspnea, edema, light headedness, other - Medication Medications: Active Medications Generic Name Dose Route Start Last Admin Trade Name Freq PRN Reason Stop Dose Admin Acetaminophen 650 mg 07/28/20 18:08 07/31/20 14:26 Acetaminophen 325 Mg Tab PO 650 mg Q4H PRN Administration Headache/Fever/Mild Pain (1-3) Amlodipine Besylate 5 mg 08/01/20 09:00 08/01/20 09:05 Amlodipine 5 Mg Tab PO 5 mg DAILY SHAWANDA Administration Diphenhydramine HCl 12.5 mg 07/29/20 11:06 07/29/20 18:48 Diphenhydramine 50 Mg/Ml Vial IVP 12.5 mg Q6H PRN Administration Itching Levothyroxine Sodium 75 mcg 08/01/20 06:00 08/01/20 05:30 Levothyroxine Sodium 75 Mcg Tab PO 75 mcg 0600 SHAWANDA Administration Mirabegron 25 mg 08/01/20 09:00 08/01/20 09:04 Mirabegron Er 25 Mg Tab PO 25 mg DAILY SHAWANDA Administration Ondansetron HCl 4 mg 07/28/20 18:08 07/30/20 15:04 Ondansetron Pf 4 Mg/2 Ml Vial IVP 4 mg Q6H PRN Administration Nausea/Vomiting Paroxetine HCl 20 mg 08/01/20 09:00 08/01/20 09:05 Paroxetine 20 Mg Tab PO 20 mg DAILY SHAWANDA Administration Saccharomyces Boulardii 250 mg 08/01/20 21:00 08/01/20 20:00 Saccharomyces Boulardii 250 Mg Cap PO 250 mg HS SHAWANDA Administration Tramadol HCl 50 mg 07/31/20 08:43 07/31/20 16:33 Tramadol Hcl 50 Mg Tab PO 50 mg Q6H PRN Administration Moderate Pain (4-6) Vancomycin HCl 250 mg 08/01/20 12:00 08/01/20 17:49 Vancomycin Hcl 25 Mg/Ml Oral PO 250 mg Q6HR SHAWANDA Administration - Exam General Appearance: awake alert Neck: supple, no JVD Heart: no gallops, no rubs Respiratory: no wheezes, no rales Gastrointestinal: soft, no guarding, no rigidity, tender to palpation Extremities: no cyanosis, no clubbing Musculoskeletal: generalized weakness Hosp A/P - Plan DVT proph w/SCDs Acute recurrent pancreatitisimproving C. difficile colitis Sepsis due to abovePOA Acute kidney injury on CKD 2POA Thrombocytopenia Hypokalemia/hyponatremia/hypomagnesemia Hypertension Hyperlipidemia Hypothyroidism Anxiety Plan: Increase oral vancomycin to 250 mg q6 hourly. At that recheck labs in a.m. Continue full liquid diet. Consult walking program. Replace magnesium and potassium. Continue levothyroxine, amlodipine, Paxil and other medications as above.
[2020-08-02] MEDS: Levothyroxine Sodium 75 MCG TAB PO SCH (05:37)
[2020-08-02] MEDS: Vancomycin HCl 25 MG/ML Oral PO SCH ×4 (05:37→23:53)
[2020-08-02 06:05] LABS: #Eosinphils 0.4 thou/uL (0.0-0.7); #Lymphocytes 1.6 thou/uL (1.20-3.40); #Monocytes 1.4 thou/uL (0.11-0.59); #Neutrophils 7.2 thou/uL (1.40-6.50); %Eosinophils 3.4 % (0.0-10.0); %Lymphocytes 15.5 % (21.0-51.0); %Monocytes 12.9 % (0.0-10.0); %Neutrophils 68.2 % (42.0-75.0); Hemoglobin 12.5 g/dL (12.0-16.0); Mean Corpuscular HGB CONC 33.9 g/dL (32.0-36.0); Mean Corpuscular Volume 91.5 fL (78.0-98.0); Mean Platelet Volume 8.7 fL (7.4-10.4); Platelet Count 187 thou/uL (130-400); RBC Distribution Width 11.6 % (11.5-14.5); Red Blood Cell (RBC) Count 4.04 mill/uL (4.20-5.40); White Blood Cell (WBC) Count 10.5 thou/uL (4.8-10.8)
[2020-08-02 06:27] LABS: ALT (SGPT) 10 U/L (8-55); AST (SGOT) 16 U/L (5-34); Albumin 3.4 g/dL (3.4-4.8); Alkaline Phosphatase 68 U/L (40-110); Anion Gap 12 mmol/L (10-20); BUN (Urea Nitrogen) 9 mg/dL (9.8-20.1); Bilirubin, Total 0.5 mg/dL (0.2-1.2); Calc. Creatinine Clearance 72 mL/min (70-130); Calcium 8.5 mg/dL (7.8-10.44); Carbon Dioxide 26 mmol/L (23-31); Chloride 104 mmol/L (98-107); Globulin 3.2 g/dL (2.4-3.5); Glucose 103 mg/dL (83-110); Potassium 3.4 mmol/L (3.5-5.1); Protein, Total 6.6 g/dL (6.0-8.3); Sodium 139 mmol/L (136-145)
[2020-08-02] MEDS: Amlodipine 5 MG TAB PO SCH (08:51)
[2020-08-02] MEDS: PARoxetine 20 MG TAB PO SCH (08:51)
[2020-08-02] MEDS ORDERED: Potassium Chloride 20 MEQ TAB PO SCH (09:00)
[2020-08-02] MEDS: Saccharomyces boulardii 250 MG CAP PO SCH (20:06)
--- NOTE | 2020-08-02 21:48 | PDOC.HOSPP ---
- Subjective Encounter Date: 08/02/20 Encounter Time: 12:45 Subjective: Patient seen and examined for acute pancreatitis with C. difficile colitis. Diarrhea is slowing down. Denies any new complaints. No nausea, vomiting reported - Objective Vital Signs & Weight: Vital Signs (12 hours) Temp Pulse Resp BP Pulse Ox 08/02/20 16:18 97.9 F 81 20 146/65 H 95 08/02/20 12:24 97.9 F 79 20 139/79 97 Weight Weight 176 lb 5.917 oz I&O: 08/01/20 08/02/20 08/03/20 06:59 06:59 06:59 Intake Total 2370 2027 840 Output Total 800 Balance 1570 2027 840 Result Diagrams: 08/02/20 05:58 08/02/20 05:58 Hospitalist ROS - Review of Systems Respiratory: denies: cough, dry, shortness of breath, hemoptysis, SOB with excertion, pleuritic pain, sputum, wheezing, other Cardiovascular: denies: chest pain, palpitations, orthopnea, paroxysmal noc. dyspnea, edema, light headedness, other - Medication Medications: Active Medications Generic Name Dose Route Start Last Admin Trade Name Freq PRN Reason Stop Dose Admin Acetaminophen 650 mg 07/28/20 18:08 07/31/20 14:26 Acetaminophen 325 Mg Tab PO 650 mg Q4H PRN Administration Headache/Fever/Mild Pain (1-3) Amlodipine Besylate 5 mg 08/01/20 09:00 08/02/20 08:51 Amlodipine 5 Mg Tab PO 5 mg DAILY SHAWANDA Administration Diphenhydramine HCl 12.5 mg 07/29/20 11:06 07/29/20 18:48 Diphenhydramine 50 Mg/Ml Vial IVP 12.5 mg Q6H PRN Administration Itching Levothyroxine Sodium 75 mcg 08/01/20 06:00 08/02/20 05:37 Levothyroxine Sodium 75 Mcg Tab PO 75 mcg 0600 SHAWANDA Administration Mirabegron 25 mg 08/01/20 09:00 08/02/20 08:51 Mirabegron Er 25 Mg Tab PO 25 mg DAILY SHAWANDA Administration Ondansetron HCl 4 mg 07/28/20 18:08 07/30/20 15:04 Ondansetron Pf 4 Mg/2 Ml Vial IVP 4 mg Q6H PRN Administration Nausea/Vomiting Paroxetine HCl 20 mg 08/01/20 09:00 08/02/20 08:51 Paroxetine 20 Mg Tab PO 20 mg DAILY SHAWANDA Administration Saccharomyces Boulardii 250 mg 08/01/20 21:00 08/02/20 20:06 Saccharomyces Boulardii 250 Mg Cap PO 250 mg HS SHAWANDA Administration Tramadol HCl 50 mg 07/31/20 08:43 07/31/20 16:33 Tramadol Hcl 50 Mg Tab PO 50 mg Q6H PRN Administration Moderate Pain (4-6) Vancomycin HCl 250 mg 08/01/20 12:00 08/02/20 18:42 Vancomycin Hcl 25 Mg/Ml Oral PO 250 mg Q6HR SHAWANDA Administration - Exam General Appearance: NAD Heart: RRR, no gallops Respiratory: no wheezes, no ronchi Gastrointestinal: no guarding, no rigidity Gastrointestinal - other findings: Mild generalized tenderness Extremities: no cyanosis, no clubbing Neurological: no new deficit Hosp A/P - Plan DVT proph w/SCDs Acute recurrent pancreatitisimproving C. difficile colitis Sepsis due to above Acute kidney injury on CKD 2 Thrombocytopenia Hypokalemia/hyponatremia/hypomagnesemia Hypertension Hyperlipidemia Hypothyroidism Anxiety Plan: Will continue vancomycin to 50 mg p.o. every 6 hourly with probiotics. Will advance diet to low fiber diet. Continue amlodipine, Paxil and other medications as above. Continue C. difficile isolation. DC in 24 hours if stable
[2020-08-03 03:52] VITALS: BP 145/78; TEMP 98.1
[2020-08-03] MEDS: Levothyroxine Sodium 75 MCG TAB PO SCH (05:44)
[2020-08-03] MEDS: Vancomycin HCl 25 MG/ML Oral PO SCH ×2 (05:44→11:40)
[2020-08-03] MEDS: Amlodipine 5 MG TAB PO SCH (08:56)
[2020-08-03] MEDS: PARoxetine 20 MG TAB PO SCH (08:56)
--- NOTE | 2020-08-03 13:25 | PDOC.DS.DS ---
Provider - Provider Date of Admission: 07/28/20 16:42 Date of Discharge: 08/03/20 Admitting Provider: Ras Riley MD Consultations: Gastroentrology Primary Care Physician: Abiel Granados MD Course - Hospital Course Hospital Course: Patient is a 80-year-old female with s/p cholecystectomy and recurrent biliary pancreatitis presented to the emergency room on 07/28 with abdominal discomfort that was mainly in the epigastric region. Patient was unable to tolerate oral consistency. CT abdomen/pelvis showed findings suspicious for pancreatitis. She was kept n.p.o. and was monitored on the surgical floor. Right upper quadrant ultrasound showed diffuse dilatation of the pancreatic and intrahepatic biliary duct. Her symptoms gradually improved with conservative measures. Due to intermittent diarrhea she underwent stool work-up that was consistent with C. difficile colitis. She was started on oral vancomycin with good improvement she also had acute kidney injury that improved with IV hydration. She was counseled on C. difficile infection. Final diagnosis: Acute recurrent pancreatitisimproving C. difficile colitisprobably present on admission Sepsis due to above Acute kidney injury on CKD 2 Thrombocytopenia Hypokalemia/hyponatremia/hypomagnesemia Hypertension Hyperlipidemia Hypothyroidism Anxiety Resuscitation Status: 07/28/20 18:08 Resuscitation Status Routine Co-Sign Provider: Resuscitation Status: FULL: Full Resuscitation - Labs Lab Results: 08/02/20 05:58 08/02/20 05:58 Abnormal Lab Results - Last 48 hrs 08/02/20 05:58: Potassium 3.4 L, BUN 9 L, Albumin/Globulin Ratio 1.1 L 08/02/20 05:58: RBC 4.04 L, Lymphocytes % 15.5 L, Monocytes % 12.9 H, Neutrophils # 7.2 H, Monocytes # 1.4 H Microbiology - Entire Visit 07/31/20 18:13 Stool Stool Culture - Final 07/31/20 18:13 Stool Escherichia coli 0157 Culture - Final 07/31/20 18:13 Stool C. difficile GDH Antigen & Toxins - Final 07/31/20 18:13 Stool Clostridioides difficile Toxins A&B (PCR) - Final 07/31/20 18:13 Stool Campylobacter Antigen Assay - Final 07/31/20 18:13 Stool Shiga Toxin Test - Final - Physical Exam Vitals: Vital Signs (12 hours) Temp Pulse Resp BP Pulse Ox 08/03/20 08:56 66 08/03/20 03:15 98.1 F 66 16 145/78 H 95 Weight Weight 176 lb 5.917 oz Physical Exam: The patient was seen and examined on the day of discharge. Plan - Discharge Medications Prescriptions: Saccharomyces boulardii [Florastor] 250 mg PO DAILY #30 cap Vancomycin HCl 250 mg PO Q6H #48 capsule Home Medications: Medication Instructions Recorded Confirmed Type PARoxetine HCl [Paxil] 20 mg PO DAILY 10/05/15 07/31/20 History Levothyroxine Sodium [Synthroid] 75 mcg PO DAILY 03/29/17 07/28/20 History Quinapril HCl 40 mg PO DAILY 03/29/17 07/31/20 History Gabapentin 300 mg PO TID 06/10/18 07/31/20 History Mirabegron [Myrbetriq] 25 mg PO DAILY 11/21/19 07/31/20 History Amlodipine [Norvasc] 10 mg PO DAILY #30 tab 12/01/19 07/28/20 Rx Saccharomyces boulardii [Florastor] 250 mg PO DAILY #30 cap 08/03/20 Rx Vancomycin HCl 250 mg PO Q6H #48 capsule 08/03/20 Rx Allergies: Iodinated Contrast Media Allergy (Verified 11/22/19 03:36) Rash Penicillins Allergy (Verified 10/11/19 07:08) Per pt lactose Adverse Reaction (Verified 10/11/19 07:08) Per pt - Follow up Plan Referrals: Abiel Granados MD [Primary Care Provider] - 7 Days Alfonso Nam MD [Active] - 10 Days Disposition: HOME Quality - Care Measures CORE MEASURES:: N/A
== END 2020-08-03 13:15 | disposition home or self-care (01) | DRG 871 ==
LOC: ERS 13:23 → SURG B 16:42
PROVIDERS: ADMIT Internal Medicine; ATTEND Internal Medicine
DX: A41.9 Sepsis, unspecified organism (principal); K85.90 Acute pancreatitis without necrosis or infection, unspecified; A04.72 Enterocolitis due to Clostridium difficile, not specified as recurrent; N17.9 Acute kidney failure, unspecified; E87.1 Hypo-osmolality and hyponatremia; E03.9 Hypothyroidism, unspecified; E78.5 Hyperlipidemia, unspecified; E86.0 Dehydration; E87.8 Other disorders of electrolyte and fluid balance, not elsewhere classified; Z20.822 Contact with and (suspected) exposure to COVID-19; D69.6 Thrombocytopenia, unspecified; N18.2 Chronic kidney disease, stage 2 (mild); R19.7 Diarrhea, unspecified; I12.9 Hypertensive chronic kidney disease with stage 1 through stage 4 chronic kidney disease, or unspecified chronic kidney disease; F41.9 Anxiety disorder, unspecified; E87.6 Hypokalemia; E83.42 Hypomagnesemia; Z90.49 Acquired absence of other specified parts of digestive tract; Z90.710 Acquired absence of both cervix and uterus; Z95.4 Presence of other heart-valve replacement; Z79.899 Other long term (current) drug therapy; Z88.0 Allergy status to penicillin; Z91.041 Radiographic dye allergy status; Z79.890 Hormone replacement therapy; Z98.890 Other specified postprocedural states
CPT/HCPCS: 36415; 74177; 76705; 80053; 81001; 81003; 82787; 83605; 83690; 83735; 84478; 85025; 87045; 87046; 87081; 87324; 87427; 87449; 87493; 87635; 96374; 96375; J1200; J1644; J2270; J2405; J2920; J3475; J3480; Q9967; S0028; U0003

== ENCOUNTER 2020-08-08 17:35 | Emergency (ER) | payer MEDICARE ==
[2020-08-08] MEDS ORDERED: Ondansetron PF 4 MG/2 ML Vial ONE (18:30)
[2020-08-08] MEDS ORDERED: Morphine 4 MG/ML VIAL ONE (18:30)
[2020-08-08 18:31] LABS: #Basophils 0.1 thou/uL (0.0-0.2); #Eosinphils 0.3 thou/uL (0.0-0.7); #Lymphocytes 2.4 thou/uL (1.20-3.40); #Monocytes 1.4 thou/uL (0.11-0.59); #Neutrophils 8.1 thou/uL (1.40-6.50); %Basophils 0.7 % (0.0-1.0); %Lymphocytes 19.2 % (21.0-51.0); %Monocytes 11.8 % (0.0-10.0); %Neutrophils 66.3 % (42.0-75.0); Mean Corpuscular HGB CONC 33.1 g/dL (32.0-36.0); Mean Corpuscular Hemoglobin 30.4 pg (27.0-31.0); Mean Corpuscular Volume 91.8 fL (78.0-98.0); Mean Platelet Volume 8.2 fL (7.4-10.4); Platelet Count 274 thou/uL (130-400); RBC Distribution Width 11.4 % (11.5-14.5); Red Blood Cell (RBC) Count 4.61 mill/uL (4.20-5.40); White Blood Cell (WBC) Count 12.3 thou/uL (4.8-10.8)
[2020-08-08 19:02] LABS: ALT (SGPT) 18 U/L (8-55); AST (SGOT) 25 U/L (5-34); Albumin 4.1 g/dL (3.4-4.8); Alkaline Phosphatase 78 U/L (40-110); Anion Gap 13 mmol/L (10-20); BUN (Urea Nitrogen) 21 mg/dL (9.8-20.1); Bilirubin, Total 0.2 mg/dL (0.2-1.2); Calc. Creatinine Clearance 0 mL/min (70-130); Calcium 9.8 mg/dL (7.8-10.44); Carbon Dioxide 25 mmol/L (23-31); Chloride 103 mmol/L (98-107); Globulin 3.7 g/dL (2.4-3.5); Glucose 102 mg/dL (83-110); Lipase 62 U/L (8-78); Potassium 4.4 mmol/L (3.5-5.1); Protein, Total 7.8 g/dL (6.0-8.3); Sodium 137 mmol/L (136-145)
[2020-08-08] MEDS ORDERED: methylPREDNISolone Sod Succ 40 MG VIAL ONE (19:07)
[2020-08-08] MEDS ORDERED: Famotidine/PF 20 mg/2ml Vial ONE (19:07)
[2020-08-08] MEDS ORDERED: diphenhydrAMINE 50 MG/ML VIAL ONE (19:07)
--- NOTE | 2020-08-08 20:32 | CT ---
CT OF THE ABDOMEN AND PELVIS WITH IV CONTRAST: 08/08/20 INDICATIONS: 80-year-old female with history of pancreatitis complicated C. difficile injection and continued randy rrhea and abdominal pain. COMPARISON: Prior exam dated 07/28/20. FINDINGS: There is subsegmental volume loss involving both lower lobes. No focal hepatic lesion is evident. There is stable mild intrahepatic and extrahepatic biliary ductal dilatation with post cholecystectomy clips within the right upper quadrant. There is inflammatory changes surrounding the pancreas. No drainable fluid collection is evident. The adrenal gland, spleen, and visualized kidneys appear within normal limits. No free fluid or enlar ged lymph nodes are evident. The visualized bladder is unremarkable appearing. The unopacified large and small bowel reveal no definite acute abnormality. The appendix is not defin itely seen. The small bowel is of normal caliber. The visualized stomach is largely decompressed. No free fluid is evident within the pelvis. The reproductive structures are surgically absent. Postsurgical change again seen involving the lower lumbar spine. No definite acute osseous abnormalit y is evident. IMPRESSION: 1. Stable changes of noncomplicated pancreatitis. 2. Other chronic findings as above. POS: JASPER
== END 2020-08-08 20:32 | disposition home or self-care (01) ==
LOC: ERS 17:35
DX: A04.72 Enterocolitis due to Clostridium difficile, not specified as recurrent (principal); Z79.899 Other long term (current) drug therapy; I10 Essential (primary) hypertension; E03.9 Hypothyroidism, unspecified
CPT/HCPCS: 74177; 80053; 83690; 85025; 96374; 96375; J1200; J2270; J2405; J2920; Q9967; S0028

== ENCOUNTER 2020-08-10 01:28 | Inpatient (IN) | payer MEDICARE ==
[2020-08-10] MEDS ORDERED: Morphine 4 MG/ML VIAL SLOW IVP PRN ×2 (04:05→04:46)
[2020-08-10] MEDS ORDERED: Ondansetron PF 4 MG/2 ML Vial SLOW IVP PRN (04:05)
[2020-08-10] MEDS ORDERED: Morphine 2 MG/ML VIAL SLOW IVP PRN (04:05)
[2020-08-10] MEDS ORDERED: Ondansetron PF 4 MG/2 ML Vial IVP PRN (04:27)
[2020-08-10] MEDS ORDERED: Acetaminophen 325 MG TAB PO PRN (04:27)
[2020-08-10] MEDS ORDERED: Ondansetron ODT 4 MG TAB PO PRN (04:27)
[2020-08-10 04:53] LABS: #Eosinphils 0.2 thou/uL (0.0-0.7); #Lymphocytes 2.1 thou/uL (1.20-3.40); #Monocytes 1.7 thou/uL (0.11-0.59); #Neutrophils 11.1 thou/uL (1.40-6.50); %Basophils 0.3 % (0.0-1.0); %Eosinophils 1.4 % (0.0-10.0); %Lymphocytes 13.8 % (21.0-51.0); %Monocytes 11.2 % (0.0-10.0); %Neutrophils 73.4 % (42.0-75.0); Hemoglobin 11.6 g/dL (12.0-16.0); Mean Corpuscular HGB CONC 32.7 g/dL (32.0-36.0); Mean Corpuscular Hemoglobin 30.1 pg (27.0-31.0); Mean Corpuscular Volume 92.2 fL (78.0-98.0); Mean Platelet Volume 8.1 fL (7.4-10.4); Platelet Count 209 thou/uL (130-400); RBC Distribution Width 11.4 % (11.5-14.5); Red Blood Cell (RBC) Count 3.87 mill/uL (4.20-5.40); White Blood Cell (WBC) Count 15.2 thou/uL (4.8-10.8)
[2020-08-10] MEDS: D5 1/2 NS w/20 mEq KCL 1,000 ML IV SCH ×3 (04:59→15:02)
[2020-08-10] MEDS: Levothyroxine Sodium 75 MCG TAB PO SCH (05:00)
[2020-08-10 05:16] LABS: ALT (SGPT) 13 U/L (8-55); AST (SGOT) 20 U/L (5-34); Albumin 3.5 g/dL (3.4-4.8); Alkaline Phosphatase 62 U/L (40-110); Anion Gap 13 mmol/L (10-20); BUN (Urea Nitrogen) 20 mg/dL (9.8-20.1); Bilirubin, Total 0.2 mg/dL (0.2-1.2); Calc. Creatinine Clearance 0 mL/min (70-130); Calcium 8.6 mg/dL (7.8-10.44); Carbon Dioxide 22 mmol/L (23-31); Cardiac Risk 4.6 (Less than 4.5); Chloride 108 mmol/L (98-107); Cholesterol 175 mg/dl (< 200 Desired); Glucose 97 mg/dL (83-110); HDL Cholesterol 38 mg/dL (>60 Neg Risk); LDL Cholesterol, Calculated 110 mg/dL; Potassium 3.8 mmol/L (3.5-5.1); Protein, Total 6.5 g/dL (6.0-8.3); Sodium 139 mmol/L (136-145); Triglycerides 136 mg/dL (Less than 150)
[2020-08-10] MEDS ORDERED: Vancomycin HCl 25 MG/ML Oral PO SCH (06:00)
--- NOTE | 2020-08-10 06:03 | PDOC.HHP ---
Hospitalist HPI - History of Present Illness Diarrhea History of Present Illness: This is a 80-year-old female patient with a history of hypertension, hypothyroidism who presents today as a transfer from [employer] on account of mildly apparent current pancreatitis and ongoing C. difficile infection. Of note patient was discharged about 10 days ago from here after she was managed for recurrent acute pancreatitis and C. difficile colitis. She went home however notes she is having ongoing nausea and vomiting and diarrhea. She presented to medicine yesterday where it was noted that her lipase had bumped up slightly from 62-2 65 with mild epigastric pain. Of note [facility] her last discharge lipase was [phone]. At [facility], she has been having leukocytosis which has been worsening. Currently 15.2. Abdominal CT showed stable changes of noncomplicated pancreatitis. She was given normal saline at 250 mils per hour, Reglan and a bolus of 1 L normal saline prior to discharge. On arrival here she was generally stable complaining of mild epigastric pain and some diarrhea and nausea. She was however a little confused saying she was here over a month ago. She denied any chest pain cough or shortness of breath or fevers. Hospitalist ROS - Review of Systems Constitutional: denies: fever, chills, sweats Respiratory: denies: cough, shortness of breath, hemoptysis Gastrointestinal: reports: nausea, diarrhea. denies: vomiting, abdominal pain Genitourinary: denies: dysuria, frequency, incontinence Neurological: denies: weakness, numbness, incoordination All other systems reviewed; all pertinent +/- noted in HPI/Subj - Medication Medications: Active Medications Generic Name Dose Route Start Last Admin Trade Name Freq PRN Reason Stop Dose Admin Potassium Chloride/Dextrose/Sod Cl 1,000 mls @ 150 mls/hr 08/10/20 04:15 08/10/20 04:59 D5 1/2 Ns W/20 Meq Kcl IV 08/10/20 13:10 1,000 mls .Q6H40M SHAWANDA Administration Levothyroxine Sodium 75 mcg 08/10/20 06:00 08/10/20 05:00 Levothyroxine Sodium 75 Mcg Tab PO 75 mcg 0600 SHAWANDA Administration Ondansetron HCl 4 mg 08/10/20 04:27 08/10/20 04:59 Ondansetron Odt 4 Mg Tab PO 4 mg Q6H PRN Administration Nausea/Vomiting Vancomycin HCl 125 mg 08/10/20 06:00 08/10/20 04:59 Vancomycin Hcl 25 Mg/Ml Oral PO 125 mg Q6HR SHAWANDA Administration Medications: Can refer to ambulatory list. Allergies: Penicillin, lactose, iodine contrast media Hospitalist History - Past Medical History Other Medical History: hypertension, hypothyroidism, Pancreatitis, hypertension, hyperlipidemia, BPPV, aortic valve stenosis - Past Surgical History Other Surgical History: Aortic valve replacement, cholecystectomy, appendectomy, hysterectomy - Family History Family History: reports: no pertinent history - Social History Smoking Status: Never smoker Alcohol: reports: None Drugs: reports: none Living Situation: With Family - Exam General Appearance: awake alert Eye: PERRL, anicteric sclera Heart: RRR, no murmur, no gallops Respiratory: CTAB, no wheezes, no rales, no ronchi Gastrointestinal: soft, non-distended (In the epigastrium), normal bowel sounds, tender to palpation Neurological: cranial nerve grossly intact, no focal deficits Psychiatric: normal affect, normal behavior, A&O x 3 Hospitalist Results - Labs Result Diagrams: 08/10/20 04:44 08/10/20 04:44 Lab results: WBC 15.2 thou/uL (4.8-10.8) H 08/10/20 04:44 Hgb 11.6 g/dL (12.0-16.0) L 08/10/20 04:44 Hct 35.7 % (36.0-47.0) L 08/10/20 04:44 MCV 92.2 fL (78.0-98.0) 08/10/20 04:44 Plt Count 209 thou/uL (130-400) 08/10/20 04:44 Neutrophils % 73.4 % (42.0-75.0) 08/10/20 04:44 Sodium 139 mmol/L (136-145) 08/10/20 04:44 Potassium 3.8 mmol/L (3.5-5.1) 08/10/20 04:44 Chloride 108 mmol/L (98-107) H 08/10/20 04:44 Carbon Dioxide 22 mmol/L (23-31) L 08/10/20 04:44 BUN 20 mg/dL (9.8-20.1) 08/10/20 04:44 Creatinine 1.04 mg/dL (0.6-1.1) 08/10/20 04:44 Glucose 97 mg/dL (83-110) 08/10/20 04:44 Calcium 8.6 mg/dL (7.8-10.44) 08/10/20 04:44 Total Bilirubin 0.2 mg/dL (0.2-1.2) 08/10/20 04:44 AST 20 U/L (5-34) 08/10/20 04:44 ALT 13 U/L (8-55) 08/10/20 04:44 Alkaline Phosphatase 62 U/L (40-110) 08/10/20 04:44 Serum Total Protein 6.5 g/dL (6.0-8.3) 08/10/20 04:44 Albumin 3.5 g/dL (3.4-4.8) 08/10/20 04:44 Hospitalist H&P A/P - Plan Plan: This is a 80-year-old female patient history of hypertension and GERD recently discharged acute pancreatitis and C. difficile. She returns today with apparent recurrence of her pancreatitis although mild and ongoing C. difficile colitis. Recurrent mild pancreatitis Continue IV fluids, pain medication N.p.o. area reevaluation a.m. C. difficile colitis We will continue on vancomycin for now Continue hydration. Hypertension Resume blood pressure medications once verified. Hypothyroidism Start home levothyroxine CODE STATUSfull code VTE prophylaxislow
[2020-08-10] MEDS: Amlodipine 10 MG TAB PO SCH (08:32)
[2020-08-10] MEDS: Saccharomyces boulardii 250 MG CAP PO SCH ×2 (09:00→21:27)
[2020-08-10] MEDS ORDERED: Saccharomyces boulardii 250 MG CAP PO SCH (09:00)
[2020-08-10 13:51] LABS: SARS-CoV-2 PCR by NAA Not Detected (NotDetected)
[2020-08-10] MEDS: Vancomycin HCl 25 MG/ML Oral PO SCH ×3 (14:53→21:30)
--- NOTE | 2020-08-10 17:27 | CT ---
CT Brain WO Con: 08/10/2020 5:15 PM CLINICAL HISTORY: Altered mental status with dizziness. IMAGING TECHNIQUE: Multiple CT images were obtained of the brain without IV contrast. COMPARISON: April 26, 2019 FINDINGS: BRAIN: Evidence of acute infarct: None. Evidence of chronic ischemic change:None. Evidence of intracranial hemorrhage: None. Evidence of brain volume loss:None. Evidence of midline shift: Third ventricle and septum pellucidum are midline. Ventricles: Normal. No hydrocephalus. SKULL: Intact. VISUALIZED PARANASAL SINUSES: Clear. MASTOID AIR CELLS: Clear. EXTRACRANIAL SOFT TISSUES: Normal. IMPRESSION: No acute intracranial abnormality.
[2020-08-10] MEDS ORDERED: FLU VACC QS2020-21(65YR UP)/PF 240 MCG/0.7 ML SYRINGE IM ONE (21:00)
--- NOTE | 2020-08-10 22:22 | CON ---
DATE OF CONSULTATION: 08/10/2020 CHIEF COMPLAINT: Abdominal pain and diarrhea. HISTORY OF PRESENT ILLNESS: Ms. Moyer is a 80-year-old woman who was readmitted to the hospital today with nausea, vomiting, and diarrhea. She has had some mild abdominal pain. She was just discharged from the hospital back on 08/02/2020 at which time she was admitted with acute recurrent pancreatitis and C diff infection. She symptomatically improved while she was hospitalized and was discharged home. However, after she went home, she developed again some mild epigastric pain and nausea and vomiting and she did not keep down her oral vancomycin for several days. Since hospitalization here, she has had no further stool output. She has no abdominal pain. No nausea or vomiting. This afternoon, however, she has developed significant confusion and she had a head CT which was negative. She is wide awake and responsive, but is stating inappropriate statements and not oriented. She is not lethargic in any way. She has had no hematemesis. No blood in the stool. PAST MEDICAL HISTORY: Recurrent acute pancreatitis for which she underwent ERCP and biliary sphincterotomy back in November of 2019. She improved following that procedure back in November, however, now has been rehospitalized with pancreatitis. 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 PAST SURGICAL HISTORY: Cholecystectomy, hysterectomy, appendectomy. FAMILY HISTORY: Negative for GI malignancy. SOCIAL HISTORY: No alcohol, tobacco, or drugs. ALLERGIES: IV CONTRAST DYE, PENICILLIN, LACTOSE. OUTPATIENT MEDICATIONS: 1. Vancomycin which she has not been keeping down prior to admission. 2. Florastor. 3. Mirabegron. 4. Levothyroxine. 5. Gabapentin. 6. Amlodipine. REVIEW OF SYSTEMS: Negative x10 systems reviewed except as stated in History of Present Illness. PHYSICAL EXAMINATION: VITAL SIGNS: Temperature 98.5, pulse 78, blood pressure 168/73. GENERAL: She is in no acute distress. She is oriented to her name and place and wide-awake and can hold a conversation, but just not appropriate. HEENT: Her eyes have no scleral icterus. Oropharynx is clear without lesions. No cervical or supraclavicular lymphadenopathy. LUNGS: Clear to auscultation bilaterally. HEART: Regular rate and rhythm without murmur. ABDOMEN: Soft, nontender, and nondistended. Bowel sounds are present. EXTREMITIES: No lower extremity edema. LABORATORY DATA: Creatinine 1.04, albumin 3.5, bilirubin 0.2, AST 20, ALT 13, alkaline phosphatase 62. White blood cell count 15.2, hemoglobin 11.6, platelets 209. IMPRESSION: 1. Recurrent acute pancreatitis. She has changes of pancreatitis on the CT scan from 08/08/2020. Her lipase had bumped back up to 265 yesterday, however, was 6000 back on the 28 of July. She is now pain free and nontender to palpation and has tolerated a clear liquid diet well. If she remains pain-free and continues to do well without any further nausea or vomiting then we can advance her to a low-fat diet tomorrow. 2. Clostridium difficile colitis. She had a recent C diff toxin positive colitis with the last hospital stay. She has not kept down the vancomycin at home, so at this point, she will need to restart a 10-day course of vancomycin. Her diarrhea, however, today has completely resolved. We will see how she does when she starts more significant oral diet back in. RECOMMENDATIONS: 1. Continue vancomycin 125 mg 4 times daily. Restart a 10-day course. 2. Advance to a low-fat diet tomorrow if she remains pain free. 3. Recheck her labs tomorrow. 4. Follow up in the office after discharge to consider referral for endoscopic ultrasound. Job ID: [id number]
[2020-08-11 00:55] LABS: Bacteria/HPF 1+ HPF (None Seen); Bilirubin Negative (Negative); Blood, Urine Negative (Negative); Clarity Clear (Clear); Glucose, Urine (Dipstick) Normal (Negative); Ketone, Urine Negative (Negative); Leukocyte 75 Leu/uL (Negative); Nitrite Negative (Negative); Protein, Urine (Dipstick) Negative (Neg-Trace); RBC/HPF 0-3 HPF (0-3); Specific Gravity, Urine 1.007 (1.002-1.036); Squamous Epithelial 0-3 HPF (0-3); Urobilinogen Normal mg/dL (Less than 2)
[2020-08-11] MEDS: D5 1/2 NS w/20 mEq KCL 1,000 ML IV SCH ×2 (03:43→17:00)
[2020-08-11] MEDS: Vancomycin HCl 25 MG/ML Oral PO SCH ×4 (03:43→20:24)
[2020-08-11 05:49] LABS: #Basophils 0.1 thou/uL (0.0-0.2); #Eosinphils 0.4 thou/uL (0.0-0.7); #Lymphocytes 1.9 thou/uL (1.20-3.40); #Monocytes 1.4 thou/uL (0.11-0.59); #Neutrophils 6.7 thou/uL (1.40-6.50); %Basophils 0.5 % (0.0-1.0); %Eosinophils 3.5 % (0.0-10.0); %Lymphocytes 18.1 % (21.0-51.0); %Monocytes 13.1 % (0.0-10.0); %Neutrophils 64.6 % (42.0-75.0); Hemoglobin 12.2 g/dL (12.0-16.0); Mean Corpuscular HGB CONC 32.5 g/dL (32.0-36.0); Mean Corpuscular Volume 92.3 fL (78.0-98.0); Mean Platelet Volume 8.6 fL (7.4-10.4); Platelet Count 222 thou/uL (130-400); RBC Distribution Width 11.5 % (11.5-14.5); Red Blood Cell (RBC) Count 4.06 mill/uL (4.20-5.40); White Blood Cell (WBC) Count 10.3 thou/uL (4.8-10.8)
[2020-08-11 06:13] LABS: ALT (SGPT) 13 U/L (8-55); AST (SGOT) 21 U/L (5-34); Albumin 3.7 g/dL (3.4-4.8); Alkaline Phosphatase 71 U/L (40-110); Anion Gap 13 mmol/L (10-20); BUN (Urea Nitrogen) 9 mg/dL (9.8-20.1); Bilirubin, Total 0.4 mg/dL (0.2-1.2); Calc. Creatinine Clearance 0 mL/min (70-130); Calcium 9.3 mg/dL (7.8-10.44); Carbon Dioxide 26 mmol/L (23-31); Chloride 104 mmol/L (98-107); Globulin 3.2 g/dL (2.4-3.5); Glucose 102 mg/dL (83-110); Lipase 57 U/L (8-78); Phosphorus 2.7 mg/dL (2.3-4.7); Potassium 3.5 mmol/L (3.5-5.1); Protein, Total 6.9 g/dL (5.8-8.1); Sodium 139 mmol/L (136-145)
[2020-08-11] MEDS: Levothyroxine Sodium 75 MCG TAB PO SCH (06:21)
--- NOTE | 2020-08-11 08:54 | PDOC.HOSPP ---
- Subjective Encounter Date: 08/11/20 Encounter Time: 11:00 Subjective: Patient denies any abdominal pain, nausea, or vomiting since admission. No more diarrhea. Patient has been acutely confused since admission to the hospital. Her daughter is at the bedside. Daughter states that patient has very mild dementia. However normally patient is alert and oriented to her surroundings and possibly to the year. - Objective Vital Signs & Weight: Vital Signs (12 hours) Temp Pulse Resp BP BP Pulse Ox 08/11/20 07:40 97.8 F 74 14 158/82 H 98 08/11/20 06:34 172/70 H 08/11/20 04:37 97.7 F 76 20 174/76 H 96 08/11/20 00:14 98.0 F 75 20 152/81 H 97 08/10/20 21:08 97.9 F 78 20 168/74 H 98 Weight Weight 6.208 oz I&O: 08/10/20 08/11/20 08/12/20 06:59 06:59 06:59 Intake Total 675 Balance 675 Result Diagrams: 08/11/20 04:59 08/11/20 04:59 Hospitalist ROS - Review of Systems Constitutional: denies: fever, chills Respiratory: denies: cough, shortness of breath Cardiovascular: denies: chest pain, palpitations Gastrointestinal: denies: nausea, vomiting, abdominal pain, diarrhea - Medication Medications: Active Medications Generic Name Dose Route Start Last Admin Trade Name Freq PRN Reason Stop Dose Admin Amlodipine Besylate 10 mg 08/10/20 09:00 08/10/20 08:32 Amlodipine 10 Mg Tab PO 10 mg DAILY SHAWANDA Administration Potassium Chloride/Dextrose/Sod Cl 1,000 mls @ 75 mls/hr 08/10/20 14:00 08/11/20 03:43 D5 1/2 Ns W/20 Meq Kcl IV Not Given .[id number] SHAWANDA Levothyroxine Sodium 75 mcg 08/10/20 06:00 08/11/20 06:21 Levothyroxine Sodium 75 Mcg Tab PO 75 mcg 0600 SHAWANDA Administration Ondansetron HCl 4 mg 08/10/20 04:27 08/10/20 04:59 Ondansetron Odt 4 Mg Tab PO 4 mg Q6H PRN Administration Nausea/Vomiting Saccharomyces Boulardii 250 mg 08/10/20 09:00 08/10/20 21:27 Saccharomyces Boulardii 250 Mg Cap PO 250 mg BID SHAWANDA Administration Vancomycin HCl 250 mg 08/10/20 21:00 08/11/20 03:43 Vancomycin Hcl 25 Mg/Ml Oral PO 250 mg 0300,0900,1500,2100 SHAWANDA Administration - Exam General Appearance: NAD, awake alert ENT: moist mucosa Heart: RRR, no murmur, no gallops, no rubs Respiratory: CTAB, no wheezes, no rales, no ronchi Gastrointestinal: soft, non-tender, non-distended, normal bowel sounds Psychiatric: normal affect, normal behavior, oriented to person. negative: oriented to place, oriented to time Hosp A/P - Plan This is a 80-year-old female patient history of hypertension and GERD recently discharged acute pancreatitis and C. difficile. She returns with apparent recurrence of her pancreatitis although mild and ongoing C. difficile colitis. Recurrent mild pancreatitis Continue IV fluids, pain medication Clear liquid diet and advance as tolerated Dr. Nam consulted C. difficile colitis We will continue on vancomycin for now Continue hydration. -Acute hospital-acquired delirium Suspect this is due to being in the hospital. Will hopefully clear more as she transitions back home. Hypertension Resume blood pressure medications once verified. Hypothyroidism Start home levothyroxine CODE STATUSfull code VTE prophylaxislow -Disposition Suspect patient can likely go home with home health tomorrow depending on her mental status.
[2020-08-11] MEDS: Gabapentin 300 MG CAP PO SCH ×3 (09:21→20:22)
[2020-08-11] MEDS: Saccharomyces boulardii 250 MG CAP PO SCH ×2 (09:21→20:22)
[2020-08-11] MEDS: Amlodipine 10 MG TAB PO SCH (09:21)
--- NOTE | 2020-08-11 17:37 | PRG ---
DATE OF SERVICE: 08/11/2020 SUBJECTIVE: Ms. Moyer has no abdominal pain. She is tolerating her diet well so far. She had one formed stool this morning. OBJECTIVE: VITAL SIGNS: Temperature 97.4, pulse 70, blood pressure 136/82. GENERAL: She is in no acute distress. Awake and alert, but still confused. LUNGS: Clear to auscultation bilaterally. HEART: Regular rate and rhythm without murmur. ABDOMEN: Soft, nontender, nondistended. Bowel sounds are present. EXTREMITIES: No lower extremity edema. LABORATORY DATA: White blood cell count 10.3, hemoglobin 12.6, platelets 222. Bilirubin 0.4, AST 21, ALT 13, alkaline phosphatase 71. IMPRESSION: 1. Recurrent acute pancreatitis. Idiopathic. Previously thought possibly be due to sphincter of Oddi dysfunction. She has undergone biliary sphincterotomy previously. pancreatitis is mild and now resolved. 2. Clostridium difficile colitis. Her symptoms are resolving on vancomycin p.o. She will complete a 10-day course of vancomycin. RECOMMENDATIONS: 1. Follow up in GI clinic in 3 or 4 weeks. We might consider referral for EUS, given her recurrent pancreatitis. 2. Complete a 10-day course of vancomycin p.o. 3. Regarding the delirium, this will be deferred to the primary service. 4. I will sign off. Please call if GI can be of assistance. Job ID: [id number] MTDD
[2020-08-12] MEDS: Vancomycin HCl 25 MG/ML Oral PO SCH ×3 (03:05→14:34)
[2020-08-12] MEDS: Levothyroxine Sodium 75 MCG TAB PO SCH (06:13)
[2020-08-12] MEDS: D5 1/2 NS w/20 mEq KCL 1,000 ML IV SCH (06:14)
[2020-08-12 06:41] LABS: #Basophils 0.1 thou/uL (0.0-0.2); #Eosinphils 0.4 thou/uL (0.0-0.7); #Lymphocytes 2.3 thou/uL (1.20-3.40); #Monocytes 1.4 thou/uL (0.11-0.59); #Neutrophils 7.1 thou/uL (1.40-6.50); %Basophils 0.5 % (0.0-1.0); %Eosinophils 3.3 % (0.0-10.0); %Lymphocytes 20.8 % (21.0-51.0); %Monocytes 12.2 % (0.0-10.0); %Neutrophils 63.2 % (42.0-75.0); Hemoglobin 13.1 g/dL (12.0-16.0); Mean Corpuscular HGB CONC 32.9 g/dL (32.0-36.0); Mean Corpuscular Hemoglobin 30.5 pg (27.0-31.0); Mean Corpuscular Volume 92.9 fL (78.0-98.0); Mean Platelet Volume 8.2 fL (7.4-10.4); Platelet Count 250 thou/uL (130-400); RBC Distribution Width 11.8 % (11.5-14.5); Red Blood Cell (RBC) Count 4.29 mill/uL (4.20-5.40); White Blood Cell (WBC) Count 11.2 thou/uL (4.8-10.8)
[2020-08-12 07:09] LABS: ALT (SGPT) 14 U/L (8-55); AST (SGOT) 19 U/L (5-34); Albumin 3.5 g/dL (3.4-4.8); Alkaline Phosphatase 68 U/L (40-110); Anion Gap 13 mmol/L (10-20); BUN (Urea Nitrogen) 12 mg/dL (9.8-20.1); Bilirubin, Total 0.2 mg/dL (0.2-1.2); Calc. Creatinine Clearance 0 mL/min (70-130); Calcium 9.3 mg/dL (7.8-10.44); Carbon Dioxide 26 mmol/L (23-31); Chloride 107 mmol/L (98-107); Globulin 3.3 g/dL (2.4-3.5); Glucose 103 mg/dL (83-110); Lipase 31 U/L (8-78); Magnesium 2.2 mg/dL (1.6-2.6); Phosphorus 3.4 mg/dL (2.3-4.7); Potassium 4.2 mmol/L (3.5-5.1); Protein, Total 6.8 g/dL (5.8-8.1); Sodium 142 mmol/L (136-145)
--- NOTE | 2020-08-12 07:52 | PDOC.HOSPP ---
- Subjective Encounter Date: 08/12/20 Encounter Time: 10:00 Subjective: Patient reports feeling much better. She states that she still has to think a little bit and concentrate to remember things like the year but she realizes that she was very confused yesterday and feels like she is thinking much clearer. Patient denies any nausea vomiting or diarrhea. - Objective Vital Signs & Weight: Vital Signs (12 hours) Temp Pulse Resp BP BP Pulse Ox 08/12/20 07:31 97.3 F L 66 18 133/78 96 08/12/20 03:42 97.6 F 61 18 149/78 H 96 08/12/20 00:18 97.4 F L 72 18 136/81 98 Weight Weight 6.208 oz I&O: 08/11/20 08/12/20 08/13/20 06:59 06:59 06:59 Intake Total 675 1325 Balance 675 1325 Result Diagrams: 08/12/20 05:56 08/12/20 05:56 Hospitalist ROS - Review of Systems Constitutional: denies: fever, chills Respiratory: denies: cough, shortness of breath Cardiovascular: denies: chest pain, palpitations Gastrointestinal: denies: nausea, vomiting, abdominal pain, diarrhea - Medication Medications: Active Medications Generic Name Dose Route Start Last Admin Trade Name Freq PRN Reason Stop Dose Admin Amlodipine Besylate 10 mg 08/10/20 09:00 08/11/20 09:21 Amlodipine 10 Mg Tab PO 10 mg DAILY SHAWANDA Administration Gabapentin 300 mg 08/11/20 09:00 08/11/20 20:22 Gabapentin 300 Mg Cap PO 300 mg TID SHAWANDA Administration Potassium Chloride/Dextrose/Sod Cl 1,000 mls @ 75 mls/hr 08/10/20 14:00 08/12/20 06:14 D5 1/2 Ns W/20 Meq Kcl IV Not Given .[id number] SHAWANDA Levothyroxine Sodium 75 mcg 08/10/20 06:00 08/12/20 06:13 Levothyroxine Sodium 75 Mcg Tab PO 75 mcg 0600 SHAWANDA Administration Mirabegron 25 mg 08/11/20 09:00 08/11/20 09:42 Mirabegron Er 25 Mg Tab PO 25 mg DAILY SHAWANDA Administration Ondansetron HCl 4 mg 08/10/20 04:27 08/10/20 04:59 Ondansetron Odt 4 Mg Tab PO 4 mg Q6H PRN Administration Nausea/Vomiting Saccharomyces Boulardii 250 mg 08/10/20 09:00 08/11/20 20:22 Saccharomyces Boulardii 250 Mg Cap PO 250 mg BID SHAWANDA Administration Vancomycin HCl 250 mg 08/10/20 21:00 08/12/20 03:05 Vancomycin Hcl 25 Mg/Ml Oral PO 250 mg 0300,0900,1500,2100 SHAWANDA Administration - Exam General Appearance: NAD, awake alert ENT: moist mucosa Heart: RRR, no murmur, no gallops, no rubs Respiratory: CTAB, no wheezes, no rales, no ronchi Gastrointestinal: soft, non-tender, non-distended, normal bowel sounds Extremities: no edema Psychiatric: normal affect, normal behavior, A&O x 3 Psychiatric - other findings: Does have to think and concentrate a little bit but is oriented Hosp A/P - Plan This is a 80-year-old female patient history of hypertension and GERD recently discharged acute pancreatitis and C. difficile. She returns with apparent recurrence of her pancreatitis although mild and ongoing C. difficile colitis. Recurrent mild pancreatitis Continue IV fluids, pain medication Clear liquid diet and advance as tolerated Dr. Nam consulted- wants to see in clinic and have her finish 10 day Vanc course, signed off C. difficile colitis We will continue on vancomycin for now Continue hydration. -Acute hospital-acquired delirium-resolved Suspect this is due to being in the hospital. Hypertension Resume blood pressure medications once verified. Hypothyroidism Start home levothyroxine CODE STATUSfull code VTE prophylaxislow -Disposition Suspect patient can likely go home with home health this afternoon if ambulates well with physical therapy. I did call patient's and he states that they are comfortable taking her home. They have some Zofran but not much left so I will send a new prescription of that. They still have the course of vancomycin at home. states that he would appreciate having home health come out.
[2020-08-12] MEDS: Saccharomyces boulardii 250 MG CAP PO SCH (08:49)
[2020-08-12] MEDS: Gabapentin 300 MG CAP PO SCH ×2 (08:49→14:34)
[2020-08-12] MEDS: Amlodipine 10 MG TAB PO SCH (08:50)
--- NOTE | 2020-08-12 11:42 | PDOC.DS.DS ---
Provider - Provider Date of Admission: 08/10/20 01:28 Date of Discharge: 08/12/20 Admitting Provider: Rajeev Aguayo MD Consultations: Gastroentrology (Dr. Nam) Primary Care Physician: Abiel Granados MD Course - Hospital Course Hospital Course: This is a 80-year-old white female recently with pancreatitis and C. difficile diarrhea. She was discharged home but had recurrent nausea and vomiting and abdominal pain at home so she returned to the emergency room. Patient was given IV fluids and admitted to the hospital. She had no further nausea vomiting or diarrhea in the hospital. She was continued on her oral vancomycin. Patient did develop acute confusion her second hospital day. This slowly cleared and she is feeling much better today. She is having physical therapy evaluation and will likely go home later today. She will need to complete her vancomycin course. Pertinent Studies: CT of the brain without contrast-no acute abnormalities Resuscitation Status: 08/10/20 04:27 Resuscitation Status Routine Co-Sign Provider: Resuscitation Status: FULL: Full Resuscitation Discussed with: patient - Labs Lab Results: 08/12/20 05:56 08/12/20 05:56 Abnormal Lab Results - Last 48 hrs 08/11/20 00:25: Ur Leukocyte Esterase 75 A, Urine WBC 7-10 A, Urine Bacteria 1+ A 08/11/20 04:59: BUN 9 L 08/11/20 04:59: RBC 4.06 L, Lymphocytes % 18.1 L, Monocytes % 13.1 H, Neutrophils # 6.7 H, Monocytes # 1.4 H 08/12/20 05:56: Albumin/Globulin Ratio 1.1 L 08/12/20 05:56: WBC 11.2 H, Lymphocytes % 20.8 L, Monocytes % 12.2 H, Neutrophils # 7.1 H, Monocytes # 1.4 H Microbiology - Entire Visit 08/11/20 00:25 Urine clean catch Urine Culture - Preliminary Gram Negative Berto - Physical Exam Vitals: Vital Signs (12 hours) Temp Pulse Resp BP BP BP Pulse Ox 08/12/20 08:50 66 133/78 08/12/20 08:45 96 08/12/20 07:31 97.3 F L 66 18 133/78 96 08/12/20 03:42 97.6 F 61 18 149/78 H 96 08/12/20 00:18 97.4 F L 72 18 136/81 98 Weight Weight 6.208 oz Physical Exam: The patient was seen and examined on the day of discharge. Problem - Discharge Plan Assessment: Recurrent mild pancreatitis C. difficile colitis -Acute hospital-acquired delirium-resolved Hypertension Hypothyroidism CODE STATUSfull code Plan of Treatment: Discharge home on home health with low-fat diet, Zofran, and to complete course of oral vancomycin. - Time spent with Patient (mins): 32 Plan - Discharge Medications Prescriptions: Ondansetron [Zofran ODT] 4 mg PO Q6H PRN #15 tab PRN Reason: Nausea/Vomiting Home Medications: Medication Instructions Recorded Confirmed Type Levothyroxine Sodium [Synthroid] 75 mcg PO DAILY 03/29/17 08/10/20 History Gabapentin 300 mg PO TID 06/10/18 08/10/20 History Mirabegron [Myrbetriq] 25 mg PO DAILY 11/21/19 08/10/20 History Amlodipine [Norvasc] 10 mg PO DAILY #30 tab 12/01/19 08/10/20 Rx Saccharomyces boulardii [Florastor] 250 mg PO DAILY #30 cap 08/03/20 08/10/20 Rx Vancomycin HCl 250 mg PO Q6H #48 capsule 08/03/20 08/10/20 Rx Ondansetron [Zofran ODT] 4 mg PO Q6H PRN #15 tab 08/12/20 Rx Allergies: Iodinated Contrast Media Allergy (Verified 11/22/19 03:36) Rash Penicillins Allergy (Verified 10/11/19 07:08) Per pt lactose Adverse Reaction (Verified 10/11/19 07:08) Per pt - Discharge Instructions Activity:: Activity as Tolerated Nourishment:: Other (Low-fat diet) Therapies:: Home Health, Physical Therapy, Other (Medical) Equipment/Supplies:: Not Applicable IV Therapy:: Not Applicable - Follow up Plan Referrals: Abiel Granados MD [Primary Care Provider] - Alfonso Nam MD [Active] - 3-4 Weeks Disposition: HOME HEALTH Quality - Care Measures CORE MEASURES:: N/A
[2020-08-12 16:27] VITALS: BP 153/74; TEMP 97.3
== END 2020-08-12 16:56 | disposition home health service (06) | DRG 371 ==
LOC: SURG B 01:28
PROVIDERS: ADMIT Student in an Organized Health Care Education/Training Program; ATTEND Emergency Medicine
DX: A04.72 Enterocolitis due to Clostridium difficile, not specified as recurrent (principal); K85.80 Other acute pancreatitis without necrosis or infection; F05 Delirium due to known physiological condition; Z23 Encounter for immunization; Z20.822 Contact with and (suspected) exposure to COVID-19; Y95 Nosocomial condition; E03.9 Hypothyroidism, unspecified; I10 Essential (primary) hypertension; E78.5 Hyperlipidemia, unspecified; K21.9 Gastro-esophageal reflux disease without esophagitis; Z90.49 Acquired absence of other specified parts of digestive tract; Z90.710 Acquired absence of both cervix and uterus; Z95.2 Presence of prosthetic heart valve; Z79.899 Other long term (current) drug therapy; Z88.0 Allergy status to penicillin; Z88.8 Allergy status to other drugs, medicaments and biological substances; Z91.041 Radiographic dye allergy status; Z79.890 Hormone replacement therapy
CPT/HCPCS: 36415; 70450; 80053; 80061; 81001; 83690; 83735; 84100; 85025; 87077; 87086; 87186; 87635; J3480; Q0162; U0003; U0005

== ENCOUNTER 2021-05-23 11:39 | Outpatient (CLI) | payer MEDICARE ==
[~2021-05-23 11:39] MED LIST changes: +Iopamidol 370 76% 100 ML VIAL ONE; -Iopamidol-370 76% 500 ML 1 ML ONE
== END 2021-05-23 11:40 | disposition home or self-care (01) ==
LOC: CT 11:39
PROVIDERS: ATTEND Physician Assistant Medical
DX: K86.1 Other chronic pancreatitis (principal); J98.11 Atelectasis; I51.7 Cardiomegaly; D73.89 Other diseases of spleen; I70.90 Unspecified atherosclerosis; N28.1 Cyst of kidney, acquired; Z90.49 Acquired absence of other specified parts of digestive tract; Z98.1 Arthrodesis status
CPT/HCPCS: 74160; 82565; Q9967

== ENCOUNTER 2022-01-09 23:09 | Emergency (ER) | payer MEDICARE ==
[2022-01-09] MEDS ORDERED: Ketorolac Tromethamine 30 MG/ML VIAL ONE (23:59)
== END 2022-01-10 00:06 | disposition home or self-care (01) ==
LOC: ERS 23:09
DX: U07.1 COVID-19 (principal); I10 Essential (primary) hypertension; E03.9 Hypothyroidism, unspecified; Z87.19 Personal history of other diseases of the digestive system; Z79.899 Other long term (current) drug therapy
CPT/HCPCS: 96372; 99284; U0003; U0005; J1885

== ENCOUNTER 2022-01-19 14:41 | Emergency (ER) | payer MEDICARE ==
[2022-01-19] MEDS ORDERED: Meclizine HCl 25 MG TAB ONE (15:04)
[2022-01-19] MEDS ORDERED: Ondansetron PF 4 MG/2 ML Vial ONE (15:04)
[2022-01-19] MEDS ORDERED: Ketorolac Tromethamine 30 MG/ML VIAL ONE (15:04)
[2022-01-19] MEDS ORDERED: Lorazepam 2 MG/ML VIAL ONE (15:04)
[2022-01-19 16:21] LABS: #Eosinphils 0.2 thou/uL (0.0-0.7); #Lymphocytes 1.6 thou/uL (1.20-3.40); #Neutrophils 5.3 thou/uL (1.40-6.50); %Basophils 0.2 % (0.0-1.0); %Lymphocytes 20.2 % (21.0-51.0); %Monocytes 11.9 % (0.0-10.0); %Neutrophils 65.7 % (42.0-75.0); Hemoglobin 13.5 g/dL (12.0-16.0); Mean Corpuscular HGB CONC 30.8 g/dL (32.0-36.0); Mean Corpuscular Hemoglobin 29.7 pg (27.0-31.0); Mean Corpuscular Volume 96.5 fL (78.0-98.0); Mean Platelet Volume 8.6 fL (7.4-10.4); Platelet Count 198 thou/uL (130-400); RBC Distribution Width 12.4 % (11.5-14.5); Red Blood Cell (RBC) Count 4.55 mill/uL (4.20-5.40); White Blood Cell (WBC) Count 8.1 thou/uL (4.8-10.8)
[2022-01-19 16:47] LABS: ALT (SGPT) 43 U/L (8-55); AST (SGOT) 44 U/L (5-34); Albumin 3.5 g/dL (3.4-4.8); Alkaline Phosphatase 87 U/L (40-110); Anion Gap 13 mmol/L (10-20); BUN (Urea Nitrogen) 15 mg/dL (9.8-20.1); Bilirubin, Total 0.6 mg/dL (0.2-1.2); Calc. Creatinine Clearance 0 mL/min (70-130); Calcium 9.2 mg/dL (7.8-10.44); Carbon Dioxide 25 mmol/L (23-31); Chloride 107 mmol/L (98-107); Estimated GFR 63; Globulin 3.2 g/dL (2.4-3.5); Glucose 97 mg/dL (83-110); Lipase 50 U/L (8-78); Potassium 3.8 mmol/L (3.5-5.1); Protein, Total 6.7 g/dL (5.8-8.1); Sodium 141 mmol/L (136-145)
== END 2022-01-19 21:30 | disposition home health service, planned readmission (86) ==
LOC: ERS 14:41
DX: U07.1 COVID-19 (principal); I10 Essential (primary) hypertension; E03.9 Hypothyroidism, unspecified; Z79.899 Other long term (current) drug therapy; Z79.02 Long term (current) use of antithrombotics/antiplatelets
CPT/HCPCS: 36415; 71045; 80053; 83690; 83735; 84443; 84484; 85025; 93005; 96361; 96374; 96375; J1885; J2060; J2405

== ENCOUNTER 2022-02-06 11:26 | Emergency (ER) | payer MEDICARE ==
[2022-02-06 11:54] LABS: #Basophils 0.1 thou/uL (0.0-0.2); #Eosinphils 0.2 thou/uL (0.0-0.7); #Lymphocytes 2.1 thou/uL (1.20-3.40); #Neutrophils 4.9 thou/uL (1.40-6.50); %Basophils 0.6 % (0.0-1.0); %Eosinophils 2.6 % (0.0-10.0); %Lymphocytes 25.3 % (21.0-51.0); %Monocytes 12.4 % (0.0-10.0); %Neutrophils 59.2 % (42.0-75.0); Hemoglobin 15.2 g/dL (12.0-16.0); Mean Corpuscular HGB CONC 32.5 g/dL (32.0-36.0); Mean Corpuscular Hemoglobin 30.7 pg (27.0-31.0); Mean Corpuscular Volume 94.6 fL (78.0-98.0); Mean Platelet Volume 8.4 fL (7.4-10.4); Platelet Count 214 thou/uL (130-400); RBC Distribution Width 12.4 % (11.5-14.5); Red Blood Cell (RBC) Count 4.95 mill/uL (4.20-5.40); White Blood Cell (WBC) Count 8.3 thou/uL (4.8-10.8)
[2022-02-06] MEDS ORDERED: HYDROcodone/Acetaminophen 5/325 mg Tablet ONE (12:12)
[2022-02-06 12:16] LABS: ALT (SGPT) 65 U/L (8-55); AST (SGOT) 52 U/L (5-34); Albumin 4.4 g/dL (3.4-4.8); Alkaline Phosphatase 101 U/L (40-110); Anion Gap 15 mmol/L (10-20); BUN (Urea Nitrogen) 18 mg/dL (9.8-20.1); Bilirubin, Total 0.4 mg/dL (0.2-1.2); Calc. Creatinine Clearance 0 mL/min (70-130); Calcium 10.6 mg/dL (7.8-10.44); Carbon Dioxide 22 mmol/L (23-31); Chloride 106 mmol/L (98-107); Estimated GFR 48; Globulin 3.9 g/dL (2.4-3.5); Glucose 114 mg/dL (83-110); Lipase 38 U/L (8-78); Potassium 4.3 mmol/L (3.5-5.1); Protein, Total 8.3 g/dL (5.8-8.1); Sodium 139 mmol/L (136-145)
[2022-02-06] MEDS ORDERED: Gabapentin 100 MG CAP PO SCH (12:45)
== END 2022-02-06 13:02 | disposition home or self-care (01) ==
LOC: ERS 11:26
DX: B02.9 Zoster without complications (principal); I10 Essential (primary) hypertension; E03.9 Hypothyroidism, unspecified
CPT/HCPCS: 36415; 71045; 80053; 83690; 84484; 85025; 93005

== ENCOUNTER 2022-06-25 13:25 | Emergency (ER) | payer MEDICARE | END 2022-06-25 16:45 | disposition home or self-care (01) | LOC: ERS 13:25 | DX: J00 Acute nasopharyngitis [common cold] (principal); I10 Essential (primary) hypertension; E03.9 Hypothyroidism, unspecified | CPT/HCPCS: 71045 ==